=== PATIENT | male | born 1955 | race Caucasian/White ===

== ENCOUNTER → 2017-05-23 | Outpatient (REF) | payer MEDICARE, MEDICAID | LOC: M SMT 13:34 | PROVIDERS: ATTEND Nurse Practitioner Women's Health | DX: R97.20 Elevated prostate specific antigen [PSA] (principal); Z79.01 Long term (current) use of anticoagulants; Z79.4 Long term (current) use of insulin; Z79.52 Long term (current) use of systemic steroids; Z79.82 Long term (current) use of aspirin; Z79.899 Other long term (current) drug therapy; Z87.442 Personal history of urinary calculi ==

== ENCOUNTER → 2017-06-15 | Outpatient (CLI) | payer MEDICARE, MEDICAID | LOC: M SMT PRO 08:46 | DX: R97.20 Elevated prostate specific antigen [PSA] (principal); Z53.8 Procedure and treatment not carried out for other reasons ==

== ENCOUNTER 2018-05-26 10:33 | Emergency (ER) | payer MEDICARE, MEDICAID ==
[~2018-05-26] VITALS: Ht 177.8 cm; Wt 144.6 kg
[2018-05-26] MEDS ORDERED: VITA50005 PO (11:35)
[2018-05-26] MEDS ORDERED: METF10004 PO (11:35)
[2018-05-26] MEDS ORDERED: ATOR40TA75 PO (11:35)
[2018-05-26] MEDS ORDERED: FEBU40TA PO (11:35)
[2018-05-26] MEDS ORDERED: LOSA25TA33 PO (11:35)
[2018-05-26] MEDS ORDERED: FARX1TAB3 PO (11:35)
[2018-05-26] MEDS ORDERED: COUM6TAB PO (11:35)
[2018-05-26] MEDS ORDERED: SERT50TA PO (11:35)
[2018-05-26] MEDS ORDERED: PRED5PAK2 PO (11:38)
[2018-05-26] MEDS ORDERED: GLIP5TAB8 PO (11:38)
[2018-05-26] MEDS ORDERED: POTA1TAB14 PO (11:38)
[2018-05-26] MEDS ORDERED: CARV6.25 PO (11:38)
[2018-05-26] MEDS ORDERED: FURO40TA2 PO (11:38)
[2018-05-26] MEDS ORDERED: NEUR300C PO (11:38)
[2018-05-26] MEDS ORDERED: ASPI81TA85 PO (11:38)
[2018-05-26] MEDS ORDERED: TEMA15CA2 PO (11:38)
[2018-05-26] MEDS ORDERED: MORPHINE 4 MG/ML 1ML VIAL/SYRINGE (J2270) IV ONE (12:00)
[2018-05-26 12:35] LABS: HEMATOCRIT 45.8 % (42.0-52.0); HEMOGLOBIN 15.2 g/dl (13.5-17.5); MEAN CORPUSCULAR HEMOGLOBIN 28.2 pg (27.0-33.0); MEAN CORPUSCULAR HGB CONC 33.2 g/dl (32.0-36.5); PLATELET COUNT, AUTOMATED 149 10^3/uL (150-450); RED BLOOD COUNT 5.39 10^6/uL (4.30-6.10); WHITE BLOOD COUNT 9.1 10^3/uL (4.0-10.0)
[2018-05-26 13:00] LABS: BLOOD UREA NITROGEN 27 MG/DL (7-18); C REACTIVE PROTEIN QUANTITATIV 1.49 MG/DL (0.00-0.30); CALCIUM LEVEL 9.2 MG/DL (8.8-10.2); CARBON DIOXIDE LEVEL 26 MEQ/L (21-32); CHLORIDE LEVEL 106 MEQ/L (98-107); CREATININE FOR GFR 1.15 MG/DL (0.70-1.30); GLOMERULAR FILTRATION RATE > 60.0 (>49); GLUCOSE, FASTING 156 MG/DL (70-100); POTASSIUM SERUM 4.3 MEQ/L (3.5-5.1); SODIUM LEVEL 141 MEQ/L (136-145); URIC ACID 3.8 MG/DL (3.5-7.2)
[2018-05-26 13:16] LABS: ERYTHROCYTE SEDIMENTATION RATE 5 mm/hr (0-20)
[2018-05-26] MEDS ORDERED: KEFL500C17 PO (13:44)
[2018-05-26] MEDS ORDERED: NORCOTAB PO (13:44)
[2018-05-26 13:56] VITALS: BP 140/86
== END 2018-05-26 14:04 | disposition home or self-care (01) ==
LOC: M ED 10:33
DX: M25.531 Pain in right wrist (principal); E11.9 Type 2 diabetes mellitus without complications; I10 Essential (primary) hypertension; F33.9 Major depressive disorder, recurrent, unspecified; F41.9 Anxiety disorder, unspecified; Z95.0 Presence of cardiac pacemaker; Z79.01 Long term (current) use of anticoagulants
CPT/HCPCS: 80048; 84550; 85027; 85652; 86140; 87040; 96374; 99284; J2270

== ENCOUNTER 2018-09-01 17:27 | Emergency (ER) | payer MEDICARE, MEDICAID ==
[~2018-09-01] VITALS: Ht 180.3 cm; Wt 134.6 kg
[~2018-09-01 17:27] MED LIST: ASPI81TA85 PO; ATOR40TA75 PO; CARV6.25 PO; COUM6TAB PO; FARX1TAB3 PO; FEBU40TA PO; FURO40TA2 PO; GLIP5TAB8 PO; HYDR-3715 PO; KEFL500C17 PO; LOSA25TA14 PO; METF10004 PO; NEUR300C PO; POTA1TAB14 PO; PRED5PAK2 PO; SERT-141 PO; TEMA15CA2 PO; VITA50005 PO
[2018-09-01] MEDS ORDERED: ACETAMINOPHEN 325 MG TAB PO ONE (18:00)
[2018-09-01 18:15] LABS: BASO % 0.4 % (0.0-1.0); EOS # 0.1 10^3/uL (0.0-0.50); EOS % 0.5 % (0.0-3.0); HEMATOCRIT 39.9 % (42.0-52.0); HEMOGLOBIN 12.2 g/dl (13.5-17.5); LYMPH # 2.7 10^3/uL (1.5-4.5); LYMPH % 29.4 % (24.0-44.0); MEAN CORPUSCULAR HEMOGLOBIN 26.1 pg (27.0-33.0); MEAN CORPUSCULAR HGB CONC 30.6 g/dl (32.0-36.5); MEAN CORPUSCULAR VOLUME 85.4 fl (80.0-96.0); MONO # 0.7 10^3/uL (0.0-0.8); MONO % 7.4 % (0.0-5.0); NEUTROPHILS # 5.7 10^3/uL (1.8-7.7); NEUTROPHILS % 61.9 % (36.0-66.0); PLATELET COUNT, AUTOMATED 192 10^3/uL (150-450); RED BLOOD COUNT 4.67 10^6/uL (4.30-6.10); WHITE BLOOD COUNT 9.3 10^3/uL (4.0-10.0)
[2018-09-01 18:27] LABS: INR 1.82; PROTHROMBIN TIME 21.4 SECONDS (12.1-14.4)
[2018-09-01 18:28] LABS: PARTIAL THROMBOPLASTIN TIME 36.5 SECONDS (25.4-37.6)
--- NOTE | 2018-09-01 18:29 | REP ---
Clinical: Trauma. Technique: AP and lateral views of the left tibia / fibula. Findings: Osteopenia and advanced degenerative changes at the knee and ankle joint limit evaluation for subtle injury. No obvious acute fracture or dislocation is appreciated. Significant swelling at the ankle noted. Marked peripheral vascular disease identified. No subcutaneous emphysema. Impression: 1. Limited by osteopenia and advanced degenerative changes at the knee and ankle. No obvious acute fracture appreciated. 2. Moderate swelling at the ankle. 3. Advanced peripheral vascular disease. Electronically Signed by Arley Carrera MD 09/01/2018 06:21 P
--- NOTE | 2018-09-01 18:30 | REP ---
Clinical: Trauma. Technique: AP, lateral, bilateral oblique and sunrise views of of the left knee. Findings: Osteopenia and advanced tricompartmental osteoarthritic degenerative changes are appreciated including osteophytosis, subchondral sclerosis, joint space narrowing and chondrocalcinosis. No obvious acute fracture dislocation. No definite effusion. Peripheral vascular disease noted. Impression: Osteopenia and advanced tricompartmental degenerative changes are appreciated. No obvious acute fracture or dislocation identified. Electronically Signed by Arley Carrera MD 09/01/2018 06:22 P
[2018-09-01 19:00] VITALS: BP 115/74
== END 2018-09-01 19:11 | disposition home or self-care (01) ==
LOC: M ED 17:27
DX: S80.12XA Contusion of left lower leg, initial encounter (principal); W19.XXXA Unspecified fall, initial encounter; Y92.099 Unspecified place in other non-institutional residence as the place of occurrence of the external cause; Y92.89 Other specified places as the place of occurrence of the external cause; Y99.9 Unspecified external cause status; I10 Essential (primary) hypertension; M85.862 Other specified disorders of bone density and structure, left lower leg; M17.12 Unilateral primary osteoarthritis, left knee; I73.9 Peripheral vascular disease, unspecified; M25.472 Effusion, left ankle; Z79.82 Long term (current) use of aspirin; Z79.84 Long term (current) use of oral hypoglycemic drugs; Z79.01 Long term (current) use of anticoagulants; Z79.899 Other long term (current) drug therapy

== ENCOUNTER 2018-09-16 21:32 | Emergency (ER) | payer MEDICARE, MEDICAID ==
[~2018-09-16] VITALS: Ht 177.8 cm; Wt 134.1 kg
[2018-09-16 23:10] LABS: BASO % 0.3 % (0.0-1.0); EOS % 0.3 % (0.0-3.0); HEMATOCRIT 41.7 % (42.0-52.0); LYMPH # 2.2 10^3/uL (1.5-4.5); LYMPH % 17.7 % (24.0-44.0); MEAN CORPUSCULAR HEMOGLOBIN 26.5 pg (27.0-33.0); MEAN CORPUSCULAR HGB CONC 31.2 g/dl (32.0-36.5); MEAN CORPUSCULAR VOLUME 84.9 fl (80.0-96.0); MONO # 0.9 10^3/uL (0.0-0.8); NEUTROPHILS # 9.1 10^3/uL (1.8-7.7); NEUTROPHILS % 74.1 % (36.0-66.0); PLATELET COUNT, AUTOMATED 171 10^3/uL (150-450); RED BLOOD COUNT 4.91 10^6/uL (4.30-6.10); WHITE BLOOD COUNT 12.2 10^3/uL (4.0-10.0)
[2018-09-16 23:31] LABS: CALCIUM LEVEL 8.9 MG/DL (8.8-10.2); CREATININE FOR GFR 1.36 MG/DL (0.70-1.30); POTASSIUM SERUM 3.7 MEQ/L (3.5-5.1)
[2018-09-16] MEDS ORDERED: CLINDAMYCIN 600 MG in APPROPRIATE DILUENT 1 EA IV ONE (23:45)
[2018-09-16 23:58] LABS: INR 2.59; PROTHROMBIN TIME 28.3 SECONDS (12.1-14.4)
[2018-09-17] MEDS ORDERED: MORPHINE 4 MG/ML 1ML VIAL/SYRINGE (J2270) IV ONE
[2018-09-17] MEDS ORDERED: NS 1,000 ML IV ONE
[2018-09-17] MEDS ORDERED: CLEO300C2 PO (00:31)
[2018-09-17] MEDS ORDERED: OXYC1TAB23 PO (00:31)
[2018-09-17] MEDS ORDERED: PERCOCET 5MG/325MG TAB PO ONE (01:15)
[2018-09-17 01:57] VITALS: BP 143/93
[2018-09-17] MEDS ORDERED: GABAPENTIN 300 MG CAP PO ONE (02:00)
--- NOTE | 2018-09-17 08:09 | REP ---
Right hand four views: There is soft tissue edema over the MCP articulations dorsally on the lateral view. There is no fracture or dislocation. There are mild osteoarthritic changes of the DIP and PIP articulations. There is vascular calcified atheroma. Impression: Soft tissue edema dorsally. No fracture or dislocation. Electronically Signed by Chin Bonilla MD 09/17/2018 08:00 A
== END 2018-09-17 02:04 | disposition home or self-care (01) ==
LOC: M ED 21:32
DX: L03.113 Cellulitis of right upper limb (principal); E11.9 Type 2 diabetes mellitus without complications; F33.9 Major depressive disorder, recurrent, unspecified; F41.9 Anxiety disorder, unspecified; Z79.899 Other long term (current) drug therapy; Z79.84 Long term (current) use of oral hypoglycemic drugs; Z79.82 Long term (current) use of aspirin; Z79.01 Long term (current) use of anticoagulants
CPT/HCPCS: 36415; 73130; 80048; 83605; 85025; 85610; 87040; 96365; 96366; 96375; 99284; J2270

== ENCOUNTER 2018-09-22 10:10 | Inpatient (IN) | payer MEDICARE, MEDICAID ==
[~2018-09-22] VITALS: Ht 177.8 cm; Wt 130.5 kg
[~2018-09-22 10:10] MED LIST changes: +CLEO300C2 PO; +OXYC1TAB23 PO
[2018-09-22 12:23] LABS: BASO % 0.3 % (0.0-1.0); EOS % 0.3 % (0.0-3.0); HEMATOCRIT 35.3 % (42.0-52.0); HEMOGLOBIN 10.9 g/dl (13.5-17.5); LYMPH # 1.4 10^3/uL (1.5-4.5); LYMPH % 13.6 % (24.0-44.0); MEAN CORPUSCULAR HEMOGLOBIN 26.5 pg (27.0-33.0); MEAN CORPUSCULAR HGB CONC 30.9 g/dl (32.0-36.5); MEAN CORPUSCULAR VOLUME 85.9 fl (80.0-96.0); MONO # 0.8 10^3/uL (0.0-0.8); MONO % 7.3 % (0.0-5.0); NEUTROPHILS # 8.1 10^3/uL (1.8-7.7); NEUTROPHILS % 78.1 % (36.0-66.0); PLATELET COUNT, AUTOMATED 157 10^3/uL (150-450); RED BLOOD COUNT 4.11 10^6/uL (4.30-6.10); WHITE BLOOD COUNT 10.3 10^3/uL (4.0-10.0)
--- NOTE | 2018-09-22 12:26 | REP ---
Pain and swelling. No history of trauma. COMPARISON: None. The bones are somewhat demineralized. There is medial compartmental narrowing and medial marginal osteophytosis. There is patellofemoral joint space narrowing with marginal osteophytosis arising from the articular surface of the patella. There is no evidence of an acute fracture. IMPRESSION: Chronic changes as described above. Electronically Signed by Albert Starkey DO 09/22/2018 02:33 P
[2018-09-22] MEDS ORDERED: AMOX875T2 PO (12:32)
[2018-09-22 13:01] LABS: ALBUMIN 2.6 GM/DL (3.2-5.2); ALT/SGPT 44 U/L (12-78); BILIRUBIN,DIRECT 0.3 MG/DL (0.0-0.2); BILIRUBIN,TOTAL 0.8 MG/DL (0.2-1.0); BLOOD UREA NITROGEN 15 MG/DL (7-18); CALCIUM LEVEL 8.2 MG/DL (8.8-10.2); CARBON DIOXIDE LEVEL 28 MEQ/L (21-32); CHLORIDE LEVEL 107 MEQ/L (98-107); CREATININE FOR GFR 0.76 MG/DL (0.70-1.30); GLOMERULAR FILTRATION RATE > 60.0 (>49); GLUCOSE, FASTING 142 MG/DL (70-100); NT-PRO BNP 4245 PG/ML (<125); POTASSIUM SERUM 3.9 MEQ/L (3.5-5.1); SODIUM LEVEL 142 MEQ/L (136-145); TOTAL PROTEIN 5.9 GM/DL (6.4-8.2)
[2018-09-22 13:33] LABS: CPK CREATINE PHOSPHOKINASE 37 U/L (39-308); TROPONIN I 0.03 NG/ML (< 0.10)
[2018-09-22] MEDS ORDERED: ACYC800T PO (13:35)
[2018-09-22] MEDS ORDERED: DOXY1CAP60 PO (13:36)
[2018-09-22] MEDS ORDERED: NORC1TAB7 PO (14:40)
[2018-09-22] MEDS ORDERED: PRED5TA PO (14:40)
[2018-09-22] MEDS ORDERED: METF500T4 PO (14:40)
[2018-09-22] MEDS ORDERED: PRED10TA2 PO (14:41)
[2018-09-22] MEDS ORDERED: MORPHINE 4 MG/ML 1ML VIAL/SYRINGE (J2270) IV ONE (15:45)
[2018-09-22] MEDS ORDERED: ULTRACET TAB PO ONE (15:45)
[2018-09-22] MEDS ORDERED: GLUCAGON FOR INJ 1 MG VIAL (J1610) SC PRN (16:00)
[2018-09-22] MEDS ORDERED: DEXTROSE 50% 50 ML SYRINGE IV PRN (16:00)
[2018-09-22] MEDS ORDERED: GLUCOSE 4 GM CHEW TABLET PO PRN (16:00)
[2018-09-22] MEDS ORDERED: NALOXONE INJ 0.4 MG/1 ML VIAL (J2310) IV PRN (16:15)
[2018-09-22] MEDS ORDERED: AMPICILLIN SOD/SULBACTAM SOD 1.5 GM in D5W MINI-BAG PLUS 50 ML IV ONE (17:00)
[2018-09-22] MEDS: FUROSEMIDE 40 MG/4 ML VIAL (J1940) IV SCH ×2 (17:25→22:14)
[2018-09-22] MEDS: HumaLOG INSULIN (NovoLOG) PER UNIT SC SCH ×2 (17:30→21:00)
[2018-09-22] MEDS ORDERED: WARFARIN SOD 3 MG TAB PO SCH (18:00)
[2018-09-22 18:03] LABS: IONIZED CALCIUM 4.3 MG/DL (4.5-5.3)
[2018-09-22 18:24] LABS: BLOOD UREA NITROGEN 14 MG/DL (7-18); CALCIUM LEVEL 8.4 MG/DL (8.8-10.2); CARBON DIOXIDE LEVEL 30 MEQ/L (21-32); CHLORIDE LEVEL 107 MEQ/L (98-107); CREATININE FOR GFR 0.82 MG/DL (0.70-1.30); GLOMERULAR FILTRATION RATE > 60.0 (>49); GLUCOSE, FASTING 119 MG/DL (70-100); POTASSIUM SERUM 3.7 MEQ/L (3.5-5.1); SODIUM LEVEL 143 MEQ/L (136-145)
[2018-09-22] MEDS: NORCO, ANEXSIA 5/325MG TABLET (HYDROcodone/ACETAMINOPHEN) PO PRN (20:30)
[2018-09-22] MEDS ORDERED: CALCIUM GLUCONATE 1,000 MG in D5W MINI-BAG PLUS 100 ML IV ONE (20:45)
--- NOTE | 2018-09-22 21:02 | ECGEPIP ---
Stationary ECG Study [facility] - ED Test Date: 2018-09-22 Pat Name: RUSLAN VALLEJO Department: Room: - Gender: M Registered Representative: : [id number] Requested By: ZAFAR Blas PA-C Order Number: [id number] Reading MD: Aura Cali Measurements Intervals [place] Rate: 87 P: MI: 0 QRS: -66 QRSD: 185 T: -13 QT: 426 QTc: 515 Interpretive Statements VENTRICULAR PACED NO PRIOR FOR COMPARISON Electronically Signed On 09-22-2018 21:02:16 EDT by Aura Cali
--- NOTE | 2018-09-22 21:38 | HPE ---
DATE OF ADMISSION: 09/22/2018 CHIEF COMPLAINT: Lower extremity edema, bilateral knee pain. HISTORY OF PRESENTING ILLNESS: This is a 63-year-old male with past medical history significant for systolic and diastolic congestive heart failure, ejection fraction of 30%, diabetes, hypertension, gout, morbid obesity, body mass index (BMI) of 42.7, obstructive sleep apnea, untreated, diagnosed in 2008, refuses to wear a continuous positive airway pressure (C-PAP), stage II chronic kidney disease, follows with Dr. Watson in [facility], hyperlipidemia, benign prostatic hypertrophy (BPH) without obstruction, atrial fibrillation on chronic anticoagulation with warfarin, B12 deficiency, hypochromic microcytic anemia, coronary artery disease (CAD), coronary artery bypass graft (CABG) quadruple vessel, valve replacement, ischemic cardiomyopathy, lumbar spinal stenosis, recurrent nephrolithiasis, presents to the emergency room with five day history of increasing lower extremity edema and knee swelling. Patient was recently discharged on from [facility] in [place] for a right index finger proximal interphalageal (PIP) joint infection and underwent incision and drainage with the wound left open with daily cleansing and antibiotics with Augmentin. Since patient had gone home, he had noticed a 3 pound weight gain, lower extremity edema. Patient's family says the patient is noncompliant with both fluid restriction as well as salt restriction. Patient "eats what he wants," and most often drinks multiple Mountain Dew's during the day, as well as deli sandwiches and prepared chicken salad. According to the patient, he tries to make his own meals and grills up his own steak without any added salt. According to the family, however, patient is able to eat out in a restaurant and he usually purchases packaged foods at home. He denies any orthopnea. He admits to dyspnea on exertion, about 50 feet. He denies any chest pain, pressure or tightness, lightheadedness or dizziness. He was last seen by Dr. Gómez about six months ago. No recent stress test or angiogram. Patient denies any recent travel or prolonged immobilization. Vascular Dopplers of the lower extremities are negative for deep venous thrombosis (DVT). He has 3+ pitting edema with a history of noncompliance with C-PAP as well for obstructive sleep apnea and refuses to obtain a C-PAP machine. Patient presents to the emergency room with complaints of lower extremity edema, bilateral knee pain. X-ray was negative for acute fracture, dislocation. Patient denies any chest pain, pressure, tightness, lightheadedness, dizziness. He denies two or three pillow orthopnea. He complains of pain in his knees and was found to have a Mann cyst as well as pain on the right finger, for which he takes [place] every four hours as needed, gabapentin and Augmentin. Hospitalist was called to admit for acute congestive heart failure (CHF) exacerbation. PAST MEDICAL HISTORY: Significant for: 1. Coronary heart disease. 2. Coronary artery bypass graft (CABG) times four vessels. 3. Valve replacement. 4. Type 2 diabetes. 5. Hypertension. 6. Gout. 7. Obstructive sleep apnea; refuses continuous positive airway pressure (C-PAP) . 8. Chronic kidney disease stage III. 9. Insomnia. 10. Hyperlipidemia. 11. Benign prostatic hypertrophy (BPH) without obstruction, with elevated PSA. 12. Hypergonadism. 13. Osteoarthritis. 14. Atrial fibrillation on chronic Coumadin. 15. Vitamin B12 deficiency. 16. Microcytic anemia. 17. Coronary artery disease (CAD) with diffuse ischemic heart disease. 18. Ischemic cardiomyopathy. 19. Lumbar spinal stenosis. 20. Morbid obesity; body mass index (BMI) 42.7. 21. Nephrolithiasis. ALLERGIES: No known drug allergies. PAST SURGICAL HISTORY: 1. Coronary artery bypass graft (CABG) times four vessels. 2. Pacemaker defibrillator, [facility], 2014. 3. Bilateral cataracts, 2014. 4. Valve replacement, November 2015. FAMILY HISTORY: Father with CHF. Mother with cancer, age 65. Sister at age 12. Older brother with kidney stones. Five brothers, one sister, one son and one daughter. SOCIAL HISTORY: Patient lives alone. Never smoked cigarettes. He drinks multiple Mountain Dew's during the day. He is currently single. REVIEW OF SYSTEMS: A 12-point system negative aside from positive findings in history of presenting illness (HPI). PHYSICAL EXAMINATION: VITAL SIGNS: Pulse 96, respiratory 20, blood pressure 135/66, 100% on room air. GENERAL: Patient is awake, alert, oriented times three, answering questions appropriately. No conversational dyspnea. No use of accessory respiratory muscles. No nasal flare. No tracheal deviation. Patient exhibits no use of accessory respiratory muscles. No pallor, icterus or jaundice. Mild jugular venous distention. Neck is supple, full range of motion. No cervical lymphadenopathy, thyromegaly. Dry mucous membranes. Thick neck. LUNGS: Diminished with fine crackles bilaterally. HEART: S1, S2. Regularly irregular. No murmurs, rubs or gallops. Midsternal sternotomy scar well-healed. ABDOMEN: Obese, soft, nontender, nondistended. Positive bowel sounds in all four quadrants. No rebound, guarding or hepatosplenomegaly. EXTREMITIES: 3+ pitting edema to the sacrum. Patient has tender, warm left knee. Right second digit has an open wound at the PIP joint. Has been unchanged according to the patient since hospital discharge at [facility] last . There is some erythema and tenderness, limitation of flexion/extension at the PIP joint. He is right-handed by nature. No change in sensation. No cyanosis. EKG: Atrial fibrillation ventricular rate of 87. Intraventricular conduction delay. Inferior myocardial infarction ([place]), age undetermined. LABORATORY DATA: White count 10.3, hemoglobin 10.9, hematocrit 35.3, platelet count 157. 78% neutrophils, 13% lymphocytes, 7% monocytes. Sodium 142, potassium 3.9, chloride 107, bicarbonate 28, BUN 15, creatinine 0.76, glucose 142, calcium 8.2. Total bilirubin 0.8, direct bilirubin 0.3, AST 22, ALT 44, alkaline phosphatase 70, total CK 37, MB fraction 1. Troponin 0.03. CRP 14. BNP 4245. Total protein 5.9, albumin 2.6, albumin/globulin ratio 0.79. Pro-calcitonin is pending. Knee x-ray 09/22/2018: Chronic changes. Bones are demineralized. Medial compartmental narrowing and medial marginal osteophytosis. There is patellofemoral joint space narrowing with marginal osteophytosis arising from the articular surface of the patella. There is no evidence of an acute fracture. Chronic changes. Vascular ultrasound 09/22/2018: No formal report. ASSESSMENT AND PLAN: This is a 63-year-old male who presents with lower extremity edema and bilateral knee pain. Patient will be admitted as an inpatient for two midnights for the following issues: 1. Lower extremity edema. Most likely secondary to right-sided congestive heart failure with elevated BNP in the setting of dietary indiscretion, failure to follow a fluid restriction and salt restriction at home. Patient will be kept on a 2 liter fluid restriction, strict intake and output (I and O), daily weights, Lasix intravenously scheduled, with potassium, magnesium and calcium monitoring to supplement if needed, until patient's lower extremity edema and right-sided heart failure has improved. Patient will be kept on a consistent carbohydrate diet. He will be resumed on his home medications of losartan due to acute congestive heart failure (CHF). Patient's metformin and glipizide will be held until he is euvolemic. Fall precautions due to morbid obesity and lower extremity edema with increased risk of falling. Physical therapy will be consulted. 2. Diastolic/systolic congestive heart failure (CHF) exacerbation. Ejection fraction of 30%, according to the patient's family. Status post automatic implantable cardioverter defibrillator (AICD) and pacer. Patient did not recall pacemaker firing. He will be kept on third telemetry for 48 hours to monitor for arrhythmias. Cycle cardiac markers to rule out acute ischemia as cause for patient's CHF exacerbation. Patient does admit to dietary and fluid indiscretion, which was confirmed by the patient's family. Patient will be kept in the telemetry unit. We will cycle the cardiac markers every 6 hours. Continue him on his home medications aside from metformin and glipizide in light of acute CHF. Will try to avoid nonsteroidal anti-inflammatory drugs (NSAIDs) and oral hypoglycemics with the patient is in acute decompensated CHF. Repeat echocardiogram will be obtained, as well as updating the records from Dr. Gómez's office. He will be diuresed with scheduled Lasix and optimized until he is euvolemic. 3. Knee pain. Most likely secondary to increased lower extremity edema. Rule out fracture with x-ray, which was negative. Ultrasound showed Mann cyst. Patient is on chronic anticoagulation and physical therapy (PT) will be consulted. 4. Right second finger joint infection. Patient had been on a course of Augmentin as outpatient, was due to see his orthopedic surgeon for followup as outpatient. We will continue with wound care with daily soaps, according to the patient's daughter, as well as intravenous Unasyn while he is admitted to the hospital. 5. History of Coronary artery disease (CAD), coronary artery bypass graft (CABG) time four vessels. Rule out acute ischemia as cause for patient's CHF. Patient may be continued on aspirin, losartan. He is currently not on any beta-blockers and will continue patient's atorvastatin. Will obtain records from Dr. Gómez's office. 6. Diabetes. Continue on consistent carbohydrate diet, insulin sliding scale with coverage, before food and nightly. 7. Peripheral neuropathy. Continue on gabapentin. 8. Depression. Continue on sertraline. 9. Atrial fibrillation. Currently on no rate control medications, but will continue on warfarin. Check INR daily and hold if INR is greater than 3. 10. Vitamin D deficiency. Resume outpatient vitamin D once patient is discharged. 11. Morbid obesity with untreated obstructive sleep apnea. At a high risk of respiratory acidosis, therefore, we will try to minimize patient's narcotic use. 12. Body mass index (BMI) of 42.7 with morbid obesity. Outpatient followup with primary care physician for weight loss programs; however, patient has multiple comorbidities, which may make gastric bypass referral difficult. 13. Questionable Mann cyst. Supportive care. 14. Elevated PSA. Prior history of benign prostatic hypertrophy (BPH). Outpatient followup. Will check postvoid residual should the patient have decreased urine output and increasing suprapubic bladder discomfort. If output postvoid residual is greater than 300, intermittent catheterization versus Segnudo catheter for strict intake and output (I and O). 15. History of gout. Continue on [place]. 16. Chronic kidney disease stage . Avoid nephrotoxins, NSAIDs and monitor patient's creatinine on a daily basis due to ongoing diuresis. 17. Insomnia. Continue on trazodone. 18. Chronic anemia. No acute indication for red blood cell transfusion. 19. History of lumbar spinal stenosis. May resume patient's chronic pain medications and gabapentin. 20. Ischemic cardiomyopathy. Continue home medication. Refer to cardiology for changes in medications. 21. History of nephrolithiasis. Currently does not complain of hematuria, dysuria, but does complain of frequency, difficulty maintaining and starting a urine, which is related to his BPH. Patient was due to go to [place] for stone extraction in the near future, on 10/03/2018. 22. Deep venous thrombosis (DVT) prophylaxis. On chronic warfarin. 23. Diet will be consistent carbohydrate diet. DISPOSITION: Patient's family is requesting for placement. Patient is open to assisted living. Await physical therapy (PT) clearance after medical issues have resolved.
[2018-09-22 21:54] LABS: ERYTHROCYTE SEDIMENTATION RATE 60 mm/hr (0-20)
[2018-09-22] MEDS: predniSONE 10 MG TAB PO SCH (22:15)
[2018-09-22] MEDS: GABAPENTIN 300 MG CAP PO SCH (22:15)
[2018-09-22] MEDS: TEMAZEPAM 15 MG CAP PO SCH (22:16)
[2018-09-23] MEDS: FUROSEMIDE 40 MG/4 ML VIAL (J1940) IV SCH ×6 (00:26→23:30)
[2018-09-23] MEDS: AMPICILLIN SOD/SULBACTAM SOD 1.5 GM in D5W MINI-BAG PLUS 50 ML IV SCH ×5 (00:26→22:51)
[2018-09-23] MEDS: NORCO, ANEXSIA 5/325MG TABLET (HYDROcodone/ACETAMINOPHEN) PO PRN ×2 (02:13→08:37)
[2018-09-23 07:29] LABS: IONIZED CALCIUM 4.5 MG/DL (4.5-5.3)
--- NOTE | 2018-09-23 07:41 | REP ---
REASON: Lower extremity edema. COMPARISON: None. The technique utilized in obtaining the radiograph has magnified the cardiac silhouette and accentuated the interstitial markings. AP and lateral views were obtained. There is global cardiomegaly accentuated by technique. There is evidence of scattered interstitial fibrosis. No isolated patchy opacities are evident. The pleural angles are relatively sharp but somewhat obscured by overlying soft tissue and technique. The left CP angle is not completely included on this limited radiograph. There is a dual-chamber bipolar pacemaker and there has been previous median sternotomy. There is a prosthetic aortic valve. IMPRESSION: Exam limitations and chronic changes with other findings as described above. Electronically Signed by Albert Starkey DO 09/23/2018 02:00 P
[2018-09-23 07:42] LABS: BASO % 0.2 % (0.0-1.0); EOS % 0.3 % (0.0-3.0); HEMATOCRIT 37.4 % (42.0-52.0); HEMOGLOBIN 11.3 g/dl (13.5-17.5); LYMPH # 1.9 10^3/uL (1.5-4.5); LYMPH % 16.7 % (24.0-44.0); MEAN CORPUSCULAR HEMOGLOBIN 25.6 pg (27.0-33.0); MEAN CORPUSCULAR HGB CONC 30.2 g/dl (32.0-36.5); MEAN CORPUSCULAR VOLUME 84.8 fl (80.0-96.0); MONO # 0.8 10^3/uL (0.0-0.8); MONO % 6.8 % (0.0-5.0); NEUTROPHILS # 8.7 10^3/uL (1.8-7.7); NEUTROPHILS % 75.4 % (36.0-66.0); PLATELET COUNT, AUTOMATED 179 10^3/uL (150-450); RED BLOOD COUNT 4.41 10^6/uL (4.30-6.10); WHITE BLOOD COUNT 11.5 10^3/uL (4.0-10.0)
[2018-09-23 07:52] LABS: BLOOD UREA NITROGEN 15 MG/DL (7-18); CALCIUM LEVEL 8.2 MG/DL (8.8-10.2); CARBON DIOXIDE LEVEL 29 MEQ/L (21-32); CHLORIDE LEVEL 104 MEQ/L (98-107); CREATININE FOR GFR 0.77 MG/DL (0.70-1.30); GLOMERULAR FILTRATION RATE > 60.0 (>49); GLUCOSE, FASTING 169 MG/DL (70-100); MAGNESIUM LEVEL 1.8 MG/DL (1.8-2.4); NT-PRO BNP 3897 PG/ML (<125); POTASSIUM SERUM 3.7 MEQ/L (3.5-5.1); SODIUM LEVEL 141 MEQ/L (136-145)
[2018-09-23 07:54] LABS: PROTHROMBIN TIME 38.7 SECONDS (12.1-14.4)
--- NOTE | 2018-09-23 08:26 | REP ---
REASON: Bilateral pain and swelling. PRIORS: None. TECHNIQUE: Multiple ultrasonographic images of the deep venous structures of the right and left thigh were obtained from the common femoral vein to the popliteal vein along with Doppler interrogation and color flow Doppler images. FINDINGS: There is no abnormal echogenic material seen within any of the visualized deep venous structures that would suggest acute thrombosis. Coaptation is unremarkable throughout. Doppler interrogation shows an expected response to respiratory variability and augmentation. The color flow images show what appears to be a normal vascular pattern throughout. Note is made of a 4.6 cm sized hypoechoic area in the posterior popliteal fossa of the right knee consistent with a complex Mann cyst. IMPRESSION: There is no ultrasonographic evidence of deep venous thrombosis involving any of the visualized deep venous structures of the right and left thigh, as described above. Electronically Signed by Albert Starkey DO 09/23/2018 02:02 P
[2018-09-23] MEDS: HumaLOG INSULIN (NovoLOG) PER UNIT SC SCH ×4 (08:31→20:07)
[2018-09-23] MEDS: ATORVASTATIN 20 MG TAB PO SCH (08:32)
[2018-09-23] MEDS: predniSONE 10 MG TAB PO SCH (08:32)
[2018-09-23] MEDS: GABAPENTIN 300 MG CAP PO SCH ×2 (08:32→19:50)
[2018-09-23] MEDS: LOSARTAN 25 MG TAB PO SCH (08:32)
[2018-09-23] MEDS: FEBUXOSTAT 40 MG TABLET (ULORIC) PO SCH (08:32)
[2018-09-23] MEDS: SERTRALINE HCL 50 MG TAB PO SCH (08:33)
[2018-09-23 08:46] LABS: INR 3.84
[2018-09-23] MEDS ORDERED: POTASSIUM CHLORIDE 10 MEQ SR TABLET PO SCH (09:00)
[2018-09-23] MEDS ORDERED: ASPIRIN 81 MG ENTERIC TAB PO SCH (09:00)
[2018-09-23] MEDS ORDERED: POTASSIUM CHLORIDE 10 MEQ SR TABLET PO ONE ×3 (11:00)
[2018-09-23] MEDS ORDERED: MAG SULF 1GM/100ML (MAG RUN) 1 GM in APPROPRIATE DILUENT 1 EA IV ONE (11:00)
[2018-09-23] MEDS ORDERED: traMADol 50 MG TAB PO ONE (13:30)
[2018-09-23] MEDS ORDERED: MORPHINE 4 MG/ML 1ML VIAL/SYRINGE (J2270) IV ONE (13:30)
[2018-09-23] MEDS ORDERED: predniSONE 20 MG TAB PO ONE (13:30)
--- NOTE | 2018-09-23 14:53 | IPNPDOC ---
Date Seen The patient was seen on 09/23/18. Progress Note SUBJECTIVE: overnight, pt developed gross hematuria, refused ceron. ua sent. h/o kidney stones but denies flank pain or dysuria. pt's warfarin and asa held. consent obtained for FFP and rbc transfusion if needed. sob is improved s/p 1 liter diuresis. stillw 3+ LE edema. 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 s/p iv morphine for pain. CT abd/pelvis to evaluate known h/o kidney stone pending. OBJECTIVE: PHYSICAL EXAMINATION: VITAL SIGNS: PLS SEE BELOW GENERAL: Patient is awake, alert, oriented times three, answering questions appropriately. No conversational dyspnea. No use of accessory respiratory muscles. No nasal flare. No tracheal deviation. Patient exhibits no use of accessory respiratory muscles. No pallor, icterus or jaundice. Mild jugular venous distention. Neck is sup ple, full range of motion. No cervical lymphadenopathy, thyromegaly. Dry mucous membranes. Thick neck. LUNGS: Diminished with fine crackles bilaterally. HEART: S1, S2. Regularly irregular. No murmurs, rubs or gallops. Midsternal sternotomy scar well-healed. ABDOMEN: Obese, soft, nontender, nondistended. Positive bowel sounds in all four quadrants. No rebound, guarding or hepatosplenomegaly. EXTREMITIES: 3+ pitting edema to the sacrum. Patient has tender, warm left knee. Right second digit has an open wound at the PIP joint. Has been unchanged according to the patient since hospital discharge at [facility] last . There is some erythema and tenderness, limitation of flexion/extension at the PIP joint. He is right-handed by nature. No change in sensation. No cyanosis. EKG: Atrial fibrillation ventricular rate of 87. Intraventricular conduction delay. Inferior myocardial infarction (VT), age undetermined. LABORATORY DATA, IMAGING STUDIES, MICROBIOLOGY: PLS SEE BELOW Knee x-ray 09/22/2018: Chronic changes. Bones are demineralized. Medial compartmental narrowing and medial marginal osteophytosis. There is patellofemoral joint space narrowing with marginal osteophytosis arising from the articular surface of the patella. There is no evidence of an acute fracture. Chronic changes. Vascular ultrasound 09/22/2018: No formal report. ASSESSMENT AND PLAN: This is a 63-year-old male with past medical history significant for systolic and diastolic congestive heart failure, ejection fraction of 30%, diabetes, hypertension, gout, morbid obesity, body mass index (BMI) of 42.7, obstructive sleep apnea, untreated, diagnosed in 2008, refuses to wear a continuous positive airway pressure (C-PAP), stage II chronic kidney disease, follows with Dr. Watson in [facility], hyperlipidemia, benign prostatic hypertrophy (BPH) without obstruction, atrial fibrillation on chronic anticoagulation with warfarin, B12 deficiency, hypochromic microcytic anemia, coronary artery disease (CAD), coronary artery bypass graft (CABG) quadruple vessel, valve replacement, ischemic cardiomyopathy, lumbar spinal stenosis, recurrent nephrolithiasis, presents to the emergency room with five day history of increasing lower extremity edema and knee swelling. Patient was recently discharged on from [facility] in [place] for a right index finger proximal interphalageal (PIP) joint infection and underwent incision and drainage with the wound left open with daily cleansing and antibiotics with Augmentin. Since patient had gone home, he had noticed a 3 pound weight gain, lower extremity edema. Patient's family says the patient is noncompliant with both fluid restriction as well as salt restriction. Patient "eats what he wants," and most often drinks multiple Mountain Dew's during the day, as well as deli sandwiches and prepared chicken salad. According to the patient, he tries to make his own meals and grills up his own steak without any added salt. According to the family, however, patient is able to eat out in a restaurant and he usually purchases packaged foods at home. He denies any orthopnea. He admits to dyspnea on exertion, about 50 feet. He denies any chest pain, pressure or tightness, lightheadedness or dizziness. He was last seen by Dr. Gómez about six months ago. No recent stress test or angiogram. Patient denies any recent travel or prolonged immobilization. Vascular Dopplers of the lower extremities are negative for deep venous thrombosis (DVT). He has 3+ pitting edema with a history of noncompliance with C-PAP as well for obstructive sleep apnea and refuses to obtain a C-PAP machine. Patient presents to the emergency room with complaints of lower extremity edema, bilateral knee pain. X-ray was negative for acute fracture, dislocation. Patient denies any chest pain, pressure, tightness, lightheadedness, dizziness. He denies two or three pillow orthopnea. 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 Hospitalist was called to admit for acute congestive heart failure (CHF) exacerbation. Lower extremity edema. NO dvt ON U/S. Most likely secondary to right-sided congestive heart failure with elevated BNP in the setting of dietary indiscretion, failure to follow a fluid restriction and salt restriction at home. Patient will be kept on a 2 liter fluid restriction, strict intake and output (I and O), daily weights, Lasix intravenously scheduled, with potassium, magnesium and calcium monitoring to supplement if needed, until patient's lower extremity edema and right-sided heart failure has improved. Patient will be kept on a consistent carbohydrate diet. He will be resumed on his home medications of losartan due to acute congestive heart failure (CHF). Patient's metformin and glipizide will be held until he is euvolemic. Fall precautions due to morbid obesity and lower extremity edema with increased risk of falling. Physical therapy will be consulted. Diastolic/systolic congestive heart failure (CHF) exacerbation. Ejection fraction of 30%, according to the patient's family. Status post automatic implantable cardioverter defibrillator (AICD) and pacer. Patient did not recall pacemaker firing. He will be kept on third telemetry for 48 hours to monitor for arrhythmias. Cycle cardiac markers to rule out acute ischemia as cause for patient's CHF exacerbation. Patient does admit to dietary and fluid indiscretion, which was confirmed by the patient's family. Patient will be kept in the telemetry unit. We will cycle the cardiac markers every 6 hours. Continue him on his home medications aside from metformin and glipizide in light of acute CHF. Will try to avoid nonsteroidal anti-inflammatory drugs (NSAIDs) and oral hypoglycemics with the patient is in acute decompensated CHF. Repeat echocardiogram will be obtained, as well as updating the records from Dr. Gómez's office. He will be diuresed with scheduled Lasix and optimized until he is euvolemic. Knee pain. Most likely secondary to increased lower extremity edema. Rule out fracture with x-ray, which was negative. Ultrasound showed Mann cyst. Patient is on chronic anticoagulation and physical therapy (PT) will be consulted. Right second finger joint infection. Patient had been on a course of Augmentin as outpatient, was due to see his orthopedic surgeon for followup as outpatient. We will continue with wound care with daily soaps, according to the patient's daughter, as well as intravenous Unasyn while he is admitted to the hospital. History of Coronary artery disease (CAD), coronary artery bypass graft (CABG) time four vessels. Rule out acute ischemia as cause for patient's CHF. Patient may be continued on aspirin, losartan. He is currently not on any beta-blockers and will continue patient's atorvastatin. Will obtain records from Dr. Gómez's office. Diabetes. Continue on consistent carbohydrate diet, insulin sliding scale with coverage, before food and nightly. Peripheral neuropathy. Continue on gabapentin. Depression. Continue on sertraline. gross hematuria 09/23/18 Currently does not complain of hematuria,ng and starting a urine, which is related to his BPH. Patient was due to go to [place] for stone extraction in the near future, on 10/03/2018. rpt ct abd pelvis ordered 09/23/18. asa and warfarin held due to acute blood loss. consult urology if persistent hematuria, if ct abd shows obstructive stone with hydronephrosis. Atrial fibrillation. Currently on no rate control medications, but will held warfarin due to acute hemauria.Check INR daily and hold if INR is greater than 3. Vitamin D deficiency. Resume outpatient vitamin D once patient is discharged. Morbid obesity with untreated obstructive sleep apnea. At a high risk of respiratory acidosis, therefore, we will try to minimize patient's narcotic use. Body mass index (BMI) of 42.7 with morbid obesity. Outpatient followup with primary care physician for weight loss programs; however, patient has multiple comorbidities, which may make gastric bypass referral difficult. Elevated PSA. Prior history of benign prostatic hypertrophy (BPH). Outpatient followup. Will check postvoid residual should the patient have decreased urine output and increasing suprapubic bladder discomfort. If output postvoid residual is greater than 300, intermittent catheterization versus Ceron catheter for strict intake and output (I and O). Acute exacerbation of tophaceous gout. left elbow with significant pain. on prednisone Continue on Uloric. Chronic kidney disease stage 2 Avoid nephrotoxins, NSAIDs and monitor patient's creatinine on a daily basis due to ongoing diuresis. Insomnia. Continue on trazodone. Chronic anemia. No acute indication for red blood cell transfusion. History of lumbar spinal stenosis. May resume patient's chronic pain medications and gabapentin. Ischemic cardiomyopathy. Continue home medication. Refer to cardiology for changes in medications. History of nephrolithiasis with gross hematuria 09/23/18 Currently does not complain of hematuria,ng and starting a urine, which is related to his BPH. Patient was due to go to [place] for stone extraction in the near future, on 10/03/2018. rpt ct abd pelvis ordered 09/23/18. asa and warfarin held due to acute blood loss. consult urology if persistent hematuria, if ct abd shows obstructive stone with hydronephrosis. Acute blood loss due to gross hematuria from kidney stone. check ua urine cx. h&H monitoring asa and warfarin held ffp and rbc transfusion if needed. Deep venous thrombosis (DVT) prophylaxis. On chronic warfarin. Diet will be consistent carbohydrate diet. DISPOSITION: pending clinical improvement. 3-4 days. VS, I&O, 24H, Fishbone Vital Signs/I&O Vital Signs Date Time Temp Pulse Resp B/P (MAP) Pulse Ox O2 Delivery O2 Flow Rate FiO2 09/23/18 09:45 99 09/23/18 09:07 18 09/23/18 08:32 136/83 09/23/18 08:30 98.1 94 Room Air 09/23/18 01:59 2.0 I&O- Last 24 Hours up to 6 AM 09/23/18 05:59 Intake Total 400 ml Output Total 750 ml Balance -350 ml Laboratory Data 24H LABS Laboratory Tests 2 09/22/18 17:25: Bedside Glucose (Misc Panel) 119H 09/22/18 17:51: Anion Gap 6L, Glomerular Filtration Rate > 60.0, Blood Urea Nitrogen 14, Creatinine 0.82, Sodium Level 143, Potassium Level 3.7, Chloride Level 107, Carbon Dioxide Level 30, Calcium Level 8.4L, Whole Blood Ionized Calcium 4.3L 09/22/18 22:32: Bedside Glucose (Misc Panel) 140H 09/23/18 06:55: Anion Gap 8, Glomerular Filtration Rate > 60.0, Blood Urea Nitrogen 15, Creatinine 0.77, Sodium Level 141, Potassium Level 3.7, Chloride Level 104, Carbon Dioxide Level 29, Calcium Level 8.2L, Whole Blood Ionized Calcium 4.5, Immature Granulocyte % (Auto) 0.6, White Blood Count 11.5H, Red Blood Count 4.41, Hemoglobin 11.3L, Hematocrit 37.4L, Mean Corpuscular Volume 84.8, Mean Corpuscular Hemoglobin 25.6L, Mean Corpuscular Hemoglobin Concent 30.2L, Red Cell Distribution Width 17.4H, Platelet Count 179, Neutrophils (%) (Auto) 75.4H, Lymphocytes (%) (Auto) 16.7L, Monocytes (%) (Auto) 6.8H, Eosinophils (%) (Auto) 0.3, Basophils (%) (Auto) 0.2, Neutrophils # (Auto) 8.7H, Lymphocytes # (Auto) 1.9, Monocytes # (Auto) 0.8, Eosinophils # (Auto) 0.0, Basophils # (Auto) 0.0, Nucleated Red Blood Cells % (auto) 0.0, Prothrombin Time 38.7H, Prothromb Time International Ratio 3.84, Magnesium Level 1.8, SW-Xno-K-Type Natriuretic Peptide 3897H 09/23/18 07:45: Bedside Glucose (Misc Panel) 190H CBC/BMP Laboratory Tests 09/22/18 17:51 Calcium Level 8.4 L 09/23/18 06:55 Calcium Level 8.2 L, Red Blood Count 4.41, Mean Corpuscular Volume 84.8, Mean Corpuscular Hemoglobin 25.6 L, Mean Corpuscular Hemoglobin Concent 30.2 L, Red Cell Distribution Width 17.4 H, Neutrophils (%) (Auto) 75.4 H, Lymphocytes (%) (Auto) 16.7 L, Monocytes (%) (Auto) 6.8 H, Eosinophils (%) (Auto) 0.3, Basophils (%) (Auto) 0.2, Neutrophils # (Auto) 8.7 H, Lymphocytes # (Auto) 1.9, Monocytes # (Auto) 0.8, Eosinophils # (Auto) 0.0, Basophils # (Auto) 0.0 ELMO TURNER MD Sep 23, 2018 12:45
[2018-09-23] MEDS ORDERED: PHYTONADIONE 2.5 MG **1/2 TAB PO ONE (15:00)
[2018-09-23] MEDS ORDERED: PHYTONADIONE 5 MG TAB PO ONE (15:30)
[2018-09-23 18:11] LABS: HEMATOCRIT 38.3 % (42.0-52.0); HEMOGLOBIN 11.6 g/dl (13.5-17.5)
--- NOTE | 2018-09-23 18:35 | REP ---
CT abdomen pelvis without IV or oral contrast: History: Gross hematuria. History of nephrolithiasis. No comparison CT study. Comparison abdomen radiographs are from June 23, 2015. CT findings: Preliminary digital property maintenance technician radiograph demonstrates gas in nondilated colon loops. The lung bases are essentially clear. Pacemaker is seen in the right heart. Mild cardiac enlargement is observed. No focal hepatic lesion is seen. The spleen is unremarkable. Extensive vascular calcification is noted. No pancreatic abnormality is noted. There is some higher attenuation material layering in the dependent portion the gallbladder which may be sludge or small stones. There are multiple intrarenal calculi. The largest of these occupies the upper pole collecting system on the right and measures 2.7 cm in greatest diameter. This is felt to be a staghorn calculus. There are two other tiny 2 mm calculi in the right kidney lower pole collecting system. In the left kidney, there is another staghorn calculus measuring 1.6 cm in greatest diameter. There are multiple other smaller intrarenal calculi in the left kidney and mid and upper pole level. No hydronephrosis is seen on either side. No ureteral calculus is observed. No bladder calculus is seen. There is some air in the urinary bladder suggesting recent instrumentation. There is left colonic diverticulosis without CT evidence of diverticulitis. No abdominal wall defect is seen. There is no evidence of free intraperitoneal air. No bony destructive lesion is seen. Impression: Bilateral intrarenal calculi. Bilateral staghorn calculi. No hydronephrosis. Left colonic diverticulosis without CT evidence of diverticulitis. Pacemaker in the heart with mild cardiomegaly. Electronically Signed by Du Fraire MD 09/24/2018 08:58 A
[2018-09-23 19:50] VITALS: BP 118/90
[2018-09-23] MEDS: TEMAZEPAM 15 MG CAP PO SCH (20:05)
[2018-09-24] VITALS (19 sets, daily range): BP systolic 128–152; BP diastolic 68–94; O2SAT 92–100
[2018-09-24 00:54] LABS: HEMATOCRIT 36.5 % (42.0-52.0); HEMOGLOBIN 11.2 g/dl (13.5-17.5)
[2018-09-24] MEDS: FUROSEMIDE 40 MG/4 ML VIAL (J1940) IV SCH ×2 (05:44→13:13)
[2018-09-24] MEDS: NORCO, ANEXSIA 5/325MG TABLET (HYDROcodone/ACETAMINOPHEN) PO PRN ×2 (05:44→10:20)
[2018-09-24] MEDS: AMPICILLIN SOD/SULBACTAM SOD 1.5 GM in D5W MINI-BAG PLUS 50 ML IV SCH ×4 (05:44→23:00)
[2018-09-24 06:09] LABS: BASO % 0.1 % (0.0-1.0); EOS % 0.1 % (0.0-3.0); HEMATOCRIT 38.1 % (42.0-52.0); HEMOGLOBIN 11.6 g/dl (13.5-17.5); LYMPH # 1.7 10^3/uL (1.5-4.5); LYMPH % 15.5 % (24.0-44.0); MEAN CORPUSCULAR HEMOGLOBIN 25.8 pg (27.0-33.0); MEAN CORPUSCULAR HGB CONC 30.4 g/dl (32.0-36.5); MEAN CORPUSCULAR VOLUME 84.7 fl (80.0-96.0); MONO # 0.6 10^3/uL (0.0-0.8); MONO % 5.6 % (0.0-5.0); NEUTROPHILS # 8.6 10^3/uL (1.8-7.7); NEUTROPHILS % 77.9 % (36.0-66.0); PLATELET COUNT, AUTOMATED 204 10^3/uL (150-450); WHITE BLOOD COUNT 11.1 10^3/uL (4.0-10.0)
[2018-09-24 06:27] LABS: INR 2.76; PROTHROMBIN TIME 29.8 SECONDS (12.1-14.4)
[2018-09-24 06:33] LABS: BLOOD UREA NITROGEN 21 MG/DL (7-18); CALCIUM LEVEL 8.6 MG/DL (8.8-10.2); CARBON DIOXIDE LEVEL 29 MEQ/L (21-32); CHLORIDE LEVEL 103 MEQ/L (98-107); CREATININE FOR GFR 0.87 MG/DL (0.70-1.30); GLOMERULAR FILTRATION RATE > 60.0 (>49); GLUCOSE, FASTING 221 MG/DL (70-100); MAGNESIUM LEVEL 2.2 MG/DL (1.8-2.4); POTASSIUM SERUM 3.5 MEQ/L (3.5-5.1); SODIUM LEVEL 138 MEQ/L (136-145)
[2018-09-24] MEDS: HumaLOG INSULIN (NovoLOG) PER UNIT SC SCH ×4 (08:32→20:01)
[2018-09-24] MEDS: ATORVASTATIN 20 MG TAB PO SCH (08:32)
[2018-09-24] MEDS: POTASSIUM CHLORIDE 10 MEQ SR TABLET PO SCH (08:33)
[2018-09-24] MEDS: FEBUXOSTAT 40 MG TABLET (ULORIC) PO SCH (08:33)
[2018-09-24] MEDS: SERTRALINE HCL 50 MG TAB PO SCH (08:34)
[2018-09-24] MEDS: LOSARTAN 25 MG TAB PO SCH (08:34)
[2018-09-24] MEDS: GABAPENTIN 300 MG CAP PO SCH ×2 (08:34→19:57)
[2018-09-24] MEDS ORDERED: predniSONE 10 MG TAB PO SCH (09:00)
[2018-09-24 12:04] LABS: HEMATOCRIT 36.4 % (42.0-52.0)
[2018-09-24] MEDS: oxyCODONE 5MG TAB PO PRN ×2 (15:01→18:55)
[2018-09-24] MEDS: FUROSEMIDE 100 MG/10 ML VIAL (J1940) IV SCH ×2 (17:38→23:44)
[2018-09-24 18:00] LABS: HEMATOCRIT 37.8 % (42.0-52.0); HEMOGLOBIN 11.4 g/dl (13.5-17.5)
[2018-09-24] MEDS: INDOMETHACIN 25 MG CAP PO SCH ×2 (18:33→19:57)
[2018-09-24] MEDS: ASPIRIN 81 MG CHEW TABLET PO SCH (18:58)
--- NOTE | 2018-09-24 19:39 | IPN ---
DATE: 09/24/2018 SUBJECTIVE: The patient is seen and examined in the room today. The patient stated that there is no recurrence of hematuria. The patient feels that he may be improving, but he is not sure. The patient still complains about significant bilateral knee and ankle tenderness. OBJECTIVE: VITAL SIGNS: Temperature 97.5, pulse 88, respirations 18, blood pressure 138/76, pulse oximetry 97% on 2 liters oxygen. GENERAL: Mild distress secondary to persistent lower extremity pain. Alert and awake. HEENT: Normocephalic, atraumatic. Extraocular motors are grossly intact. CARDIOVASCULAR: Positive S1, S2. LUNGS: Positive crackles bilaterally. No wheezes appreciated. ABDOMEN: Obese, nontender. Bowel sounds present. EXTREMITIES: 2 to 3+ pitting edema. There is a bandage on the right second digit with open wound. LABORATORY DATA: WBC is 11.1, hemoglobin 11.6, hematocrit 38.1, platelet count is 204. Sodium is 138, potassium 3.5, chloride 103, carbon dioxide 29, BUN 21, creatinine 0.87, GFR greater than 60, fasting glucose 221, calcium 8.6, magnesium 2.2. ASSESSMENT AND PLAN: 1. 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 The patient has an ejection fraction of 30%. Currently, the patient is on IV diuretic with holding parameters. We will continue to the patient's input and output and daily weights. We will titrate the Lasix dose if the patient does not respond to the regimen. Continue to titrate oxygen as tolerated. 2. Bilateral knee and ankle pain. The patient had a knee x-ray performed on 09/22/2018 and there were no significant findings noted. However, the patient complains of worsening of knee and joint pain. We will reevaluate with imaging studies. 3. Obstructive sleep apnea. Refused continuous positive airway pressure (CPAP). 4. History of atrial fibrillation. The patient has ventricular pacer. 5. Diabetes. On insulin sliding scale. 6. Right second finger joint infection. The patient was just recently discharged from [facility]. The patient is currently on Unasyn. 7. Coronary artery disease, status post coronary artery bypass graft (CABG) times four vessels. Previously, the patient had hematuria. The patient is on aspirin. 8. Gross hematuria, resolved. The patient will go to [place] for staghorn stone extraction on 10/03/2018. The patient's Coumadin is on hold. 9. Peripheral neuropathy. On gabapentin. 10. Depression. On sertraline. 11. Morbid obesity complicating the patient's care. 12. History of benign prostatic hypertrophy (BPH). Continue outpatient followup. 13. Acute exacerbation of Tophi gout. On prednisone and Uloric. 14. Chronic kidney disease stage II. Continue to monitor. 15. History of lumbar spine stenosis. Continue gabapentin. 16. Deep vein thrombosis (DVT) prophylaxis. Warfarin is on hold due to history of hematuria. Today the patient's INR is still therapeutic. The patient will be on thromboembolic compression stockings (TEDS) compression.
[2018-09-24] MEDS: TEMAZEPAM 15 MG CAP PO SCH (19:56)
[2018-09-24] MEDS: predniSONE 20 MG TAB PO SCH (19:57)
--- NOTE | 2018-09-24 20:44 | ECHO ---
DATE OF PROCEDURE: 09/24/2018 REFERRING PHYSICIAN: Dr. Silva INDICATION: Edema. Height 178 cm, weight 135 kg. DIMENSIONS: IVS: 1.4 LV: 6.3 LVPW: 1.5 LA: 5.2 Aorta: 3.2 IVC: 2.3 Mitral E wave velocity: 96 E prime septal: 6.3 E prime lateral: 7.4 FINDINGS: The study is a very limited technical quality corresponding to patient's body habitus. Left ventricle is moderately dilated and severely globally hypokinetic. I estimate overall EF around 30-35%. Right ventricle was poorly visualized but appears dilated as well. There is severe biatrial enlargement. Echo artifacts consistent with pacemaker or implantable cardioverter defibrillator (ICD) electrodes are apparent in right-sided heart chambers. Aortic valve appears to be bioprosthesis. Based on limited visualization, it appears normal. There are degenerative abnormalities of mitral valve with mitral annular calcifications but mobility is preserved. Tricuspid valve also appears normal. Pulmonic valve was not seen. No pericardial effusion is present. Inferior vena cava is dilated but partially collapses with respiration indicative of at least mildly elevated central venous pressure. Aortic root is normal. Aortic arch and abdominal aorta were not well seen. Doppler interrogation of aortic bioprosthesis reveals no insufficiency and mean gradient only 4 mmHg. There is trace mitral insufficiency and no significant tricuspid insufficiency. Evaluation of diastolic function is limited due to underlying atrial fibrillation. CONCLUSIONS: 1. Study is of markedly limited technical quality with difficult visualization. 2. Moderately dilated left ventricle with moderate left ventricular hypertrophy and global hypokinesis, estimated ejection fraction (EF) around 30-35% based on very poor views. 3. Likely bioprosthetic aortic valve with normal function. 4. Degenerative abnormalities of mitral valve but no significant stenosis or insufficiency. 5. High central venous pressure. 6. Unable to estimate pulmonary artery pressure. 7. Severe biatrial enlargement. 8. Echo artifact in right-sided heart chambers likely represents pacemaker or ICD electrodes. COMMENT: Subacute bacterial endocarditis (SBE) prophylaxis is recommended. MTDD
[2018-09-25] VITALS (19 sets, daily range): BP systolic 120–148; BP diastolic 58–82; O2SAT 94–99
[2018-09-25 00:13] LABS: HEMOGLOBIN 11.2 g/dl (13.5-17.5)
[2018-09-25] MEDS: AMPICILLIN SOD/SULBACTAM SOD 1.5 GM in D5W MINI-BAG PLUS 50 ML IV SCH ×4 (05:00→23:00)
[2018-09-25 05:57] LABS: BASO % 0.1 % (0.0-1.0); EOS % 0.1 % (0.0-3.0); HEMATOCRIT 37.8 % (42.0-52.0); HEMOGLOBIN 11.3 g/dl (13.5-17.5); LYMPH # 1.3 10^3/uL (1.5-4.5); LYMPH % 12.2 % (24.0-44.0); MEAN CORPUSCULAR HEMOGLOBIN 25.7 pg (27.0-33.0); MEAN CORPUSCULAR HGB CONC 29.9 g/dl (32.0-36.5); MEAN CORPUSCULAR VOLUME 86.1 fl (80.0-96.0); MONO # 0.5 10^3/uL (0.0-0.8); MONO % 4.7 % (0.0-5.0); NEUTROPHILS # 8.4 10^3/uL (1.8-7.7); NEUTROPHILS % 81.8 % (36.0-66.0); PLATELET COUNT, AUTOMATED 210 10^3/uL (150-450); RED BLOOD COUNT 4.39 10^6/uL (4.30-6.10); WHITE BLOOD COUNT 10.3 10^3/uL (4.0-10.0)
[2018-09-25] MEDS: FUROSEMIDE 100 MG/10 ML VIAL (J1940) IV SCH ×3 (06:00→17:42)
[2018-09-25 06:08] LABS: INR 1.95; PROTHROMBIN TIME 22.6 SECONDS (12.1-14.4)
[2018-09-25 06:10] LABS: BLOOD UREA NITROGEN 29 MG/DL (7-18); CALCIUM LEVEL 8.7 MG/DL (8.8-10.2); CARBON DIOXIDE LEVEL 28 MEQ/L (21-32); CHLORIDE LEVEL 105 MEQ/L (98-107); CREATININE FOR GFR 1.01 MG/DL (0.70-1.30); GLOMERULAR FILTRATION RATE > 60.0 (>49); GLUCOSE, FASTING 331 MG/DL (70-100); MAGNESIUM LEVEL 2.1 MG/DL (1.8-2.4); POTASSIUM SERUM 4.1 MEQ/L (3.5-5.1); SODIUM LEVEL 139 MEQ/L (136-145)
[2018-09-25 08:11] LABS: NT-PRO BNP 2279 PG/ML (<125)
[2018-09-25] MEDS: FEBUXOSTAT 40 MG TABLET (ULORIC) PO SCH (08:22)
[2018-09-25] MEDS: GABAPENTIN 300 MG CAP PO SCH ×2 (08:22→20:01)
[2018-09-25] MEDS: HumaLOG INSULIN (NovoLOG) PER UNIT SC SCH ×4 (08:22→20:01)
[2018-09-25] MEDS: predniSONE 20 MG TAB PO SCH ×2 (08:22→20:01)
[2018-09-25] MEDS: SERTRALINE HCL 50 MG TAB PO SCH (08:22)
[2018-09-25] MEDS: ASPIRIN 81 MG CHEW TABLET PO SCH (08:23)
[2018-09-25] MEDS: LOSARTAN 25 MG TAB PO SCH (08:23)
[2018-09-25] MEDS: ATORVASTATIN 20 MG TAB PO SCH (08:23)
[2018-09-25] MEDS: INDOMETHACIN 25 MG CAP PO SCH ×3 (08:23→20:01)
[2018-09-25] MEDS: POTASSIUM CHLORIDE 10 MEQ SR TABLET PO SCH (08:24)
[2018-09-25] MEDS: oxyCODONE 5MG TAB PO PRN ×2 (08:31→21:20)
--- NOTE | 2018-09-25 08:35 | REP ---
Bilateral ankle series: Eight views. History: Bilateral ankle tenderness. Findings: Four views of each ankle demonstrate diffuse soft tissue swelling and extensive vascular calcification bilaterally. There are bilateral Achilles calcaneal spurs. There is some plantar spurring on the left. There is bilateral tibiotalar osteoarthritic spurring. No fractures seen. Mild diffuse osteopenia is noted. There is midfoot osteoarthritic spurring bilaterally. Impression: Osteoarthritic changes. Advanced vascular calcification. Diffuse swelling. Heel spurs. No acute bony abnormality. Electronically Signed by Du Fraire MD 09/25/2018 08:27 A
--- NOTE | 2018-09-25 08:36 | REP ---
Bilateral knee series: Eight views. History: Bilateral knee tenderness. Comparison study: September 22, 2018. Findings: There is mild diffuse osteopenia. Extensive vascular calcifications again noted. There is three compartment osteoarthritis bilaterally, left more so than right. There is evidence of left-sided date of joint effusion swelling at the suprapatellar bursa. This is a new finding. No fracture is seen. Impression: Degenerative and osteoarthritic changes. Vascular calcification. Evidence of joint effusion on the left as a new finding. Electronically Signed by Du Fraire MD 09/25/2018 08:28 A
[2018-09-25 12:14] LABS: HEMATOCRIT 38.2 % (42.0-52.0); HEMOGLOBIN 11.5 g/dl (13.5-17.5)
[2018-09-25 18:04] LABS: HEMOGLOBIN 10.6 g/dl (13.5-17.5)
--- NOTE | 2018-09-25 19:58 | IPNPDOC ---
Text Note Date of Service The patient was seen on 09/25/18. NOTE SUBJECTIVE: The patient is seen and examined in the room today. Patient state his joint pains are improving. He also feels his swellings are improving too. OBJECTIVE: VITAL SIGNS: Listed below. GENERAL: No acute distress. Alert and awake. HEENT: Normocephalic, atraumatic. Extraocular motors are grossly intact. CARDIOVASCULAR: Positive S1, S2. LUNGS: Positive crackles bilaterally. No wheezes appreciated. ABDOMEN: Obese, nontender. Bowel sounds present. EXTREMITIES: 2 to 3+ pitting edema. There is a bandage on the right second digit. LABORATORY DATA: Listed below. ASSESSMENT AND PLAN: #. 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 - Ejection fraction of 30%. We will continue to the patient's input and output and daily weights. Adjusting the Lasix dose as needed. Continue to titrate oxygen as tolerated. #. Bilateral knee and ankle pain. - Repeated knee and ankle x-rays reviewed. Patient has gout flares. On steroid. #. Obstructive sleep apnea. - Refused continuous positive airway pressure (CPAP). #. History of atrial fibrillation. The patient has ventricular pacer. #. Diabetes. On insulin sliding scale. #. Right second finger joint infection. The patient was just recently discharged from [facility]. The patient is currently on Unasyn. #. Coronary artery disease, status post coronary artery bypass graft (CABG) times four vessels. Previously, the patient had hematuria. The patient is on aspirin. #. Gross hematuria, resolved. The patient will go to [place] for staghorn stone extraction on 10/03/2018. The patient's Coumadin is on hold. #. Peripheral neuropathy. On gabapentin. #. Depression. On sertraline. #. Morbid obesity complicating the patient's care. #. History of benign prostatic hypertrophy (BPH). Continue outpatient followup. #. Acute exacerbation of Tophi gout. On prednisone and Uloric. #. Chronic kidney disease stage II. Continue to monitor. #. History of lumbar spine stenosis. Continue gabapentin. #. Deep vein thrombosis (DVT) prophylaxis. Warfarin is on hold due to history of hematuria. Today the patient's INR is still therapeutic. The patient will be on thromboembolic compression stockings (TEDS) compression. A-FIB/CHADSVASC A-FIB History Current/History of A-Fib/PAF?: No VS,Fishbone, I+O VS, Fishbone, I+O Laboratory Tests 09/25/18 00:01 09/25/18 05:25 Red Blood Count 4.39, Mean Corpuscular Volume 86.1, Mean Corpuscular Hemoglobin 25.7 L, Mean Corpuscular Hemoglobin Concent 29.9 L, Red Cell Distribution Width 17.1 H, Neutrophils (%) (Auto) 81.8 H, Lymphocytes (%) (Auto) 12.2 L, Monocytes (%) (Auto) 4.7, Eosinophils (%) (Auto) 0.1, Basophils (%) (Auto) 0.1, Neutrophils # (Auto) 8.4 H, Lymphocytes # (Auto) 1.3 L, Monocytes # (Auto) 0.5, Eosinophils # (Auto) 0.0, Basophils # (Auto) 0.0, Calcium Level 8.7 L 09/25/18 11:41 09/25/18 17:51 Vital Signs Date Time Temp Pulse Resp B/P (MAP) Pulse Ox O2 Delivery O2 Flow Rate FiO2 09/25/18 17:00 94 Nasal Cannula 2.0 09/25/18 16:00 97.2 89 18 129/75 (93) I&O- Last 24 Hours up to 6 AM 09/25/18 06:00 Intake Total 1260 ml Output Total 1550 ml Balance -290 ml HARSH SAHU DO Sep 25, 2018 19:58
[2018-09-25] MEDS: TEMAZEPAM 15 MG CAP PO SCH (21:20)
[2018-09-26] VITALS (10 sets, daily range): BP systolic 100–152; BP diastolic 61–91; O2SAT 93–98
[2018-09-26 00:11] LABS: HEMATOCRIT 35.8 % (42.0-52.0); HEMOGLOBIN 10.9 g/dl (13.5-17.5)
[2018-09-26] MEDS: AMPICILLIN SOD/SULBACTAM SOD 1.5 GM in D5W MINI-BAG PLUS 50 ML IV SCH (05:00)
[2018-09-26 05:37] LABS: BASO % 0.1 % (0.0-1.0); EOS % 0.1 % (0.0-3.0); LYMPH % 11.5 % (24.0-44.0); MEAN CORPUSCULAR HEMOGLOBIN 26.1 pg (27.0-33.0); MEAN CORPUSCULAR HGB CONC 30.6 g/dl (32.0-36.5); MEAN CORPUSCULAR VOLUME 85.5 fl (80.0-96.0); MONO # 0.4 10^3/uL (0.0-0.8); MONO % 4.3 % (0.0-5.0); NEUTROPHILS # 7.5 10^3/uL (1.8-7.7); NEUTROPHILS % 83.2 % (36.0-66.0); PLATELET COUNT, AUTOMATED 207 10^3/uL (150-450); RED BLOOD COUNT 4.21 10^6/uL (4.30-6.10)
[2018-09-26 05:48] LABS: INR 1.85; PROTHROMBIN TIME 21.7 SECONDS (12.1-14.4)
[2018-09-26] MEDS: FUROSEMIDE 100 MG/10 ML VIAL (J1940) IV SCH ×2 (06:00)
[2018-09-26 06:04] LABS: BLOOD UREA NITROGEN 40 MG/DL (7-18); CALCIUM LEVEL 8.8 MG/DL (8.8-10.2); CARBON DIOXIDE LEVEL 31 MEQ/L (21-32); CHLORIDE LEVEL 103 MEQ/L (98-107); CREATININE FOR GFR 1.06 MG/DL (0.70-1.30); GLOMERULAR FILTRATION RATE > 60.0 (>49); GLUCOSE, FASTING 341 MG/DL (70-100); POTASSIUM SERUM 4.1 MEQ/L (3.5-5.1); SODIUM LEVEL 139 MEQ/L (136-145)
[2018-09-26] MEDS: ASPIRIN 81 MG CHEW TABLET PO SCH (08:09)
[2018-09-26] MEDS: POTASSIUM CHLORIDE 10 MEQ SR TABLET PO SCH (08:10)
[2018-09-26] MEDS: GABAPENTIN 300 MG CAP PO SCH ×2 (08:10→21:44)
[2018-09-26] MEDS: SERTRALINE HCL 50 MG TAB PO SCH (08:10)
[2018-09-26] MEDS: predniSONE 20 MG TAB PO SCH (08:10)
[2018-09-26] MEDS: FEBUXOSTAT 40 MG TABLET (ULORIC) PO SCH (08:10)
[2018-09-26] MEDS: ATORVASTATIN 20 MG TAB PO SCH (08:10)
[2018-09-26] MEDS: INDOMETHACIN 25 MG CAP PO SCH (08:10)
[2018-09-26] MEDS: LOSARTAN 25 MG TAB PO SCH (08:11)
[2018-09-26] MEDS: HumaLOG INSULIN (NovoLOG) PER UNIT SC SCH ×4 (08:11→21:43)
[2018-09-26] MEDS ORDERED: LIDOCAINE 1% MDV 20ML VIAL As Ordered ONE (09:31)
--- NOTE | 2018-09-26 09:40 | REP ---
Left elbow: Four views. History: Rule out fracture. Findings: Four views left elbow demonstrate extensive vascular calcification and some dystrophic calcification in the soft tissues and dorsally adjacent to the proximal forearm. There is diffuse osteopenia. Mild coronoid and olecranon process spurring is seen. There is soft tissue swelling about the olecranon process. This no evidence of fracture. Impression: No fracture noted. Olecranon soft tissue swelling and dystrophic soft-tissue calcification. Vascular calcification. Mild proximal ulnar spurring. Electronically Signed by Du Fraire MD 09/26/2018 09:31 A
[2018-09-26] MEDS ORDERED: TRIAMCINOLONE ACETONIDE SUSP 40 MG/ML VIAL (J3301) IA ONE (10:00)
[2018-09-26] MEDS ORDERED: LIDOCAINE 1% MDV 20ML VIAL SC ONE (11:20)
--- NOTE | 2018-09-26 12:23 | CR ---
DATE OF CONSULTATION: 09/26/2018 REQUESTING PHYSICIAN: Dr. Scott CHIEF COMPLAINT: Left knee pain and left elbow drainage. HISTORY: This is a 63-year-old gentleman who was admitted about for days ago with some lower extremity edema, knee pain, congestive heart failure, management of diabetes. He says he has been seen for his knees several times. He has been seen at our office in the past for cortisone injections. He has also been [place] north of here by orthopedic doctors there. Apparently, he has been poorly controlled diabetic. He has multiple medical problems. I was asked to see him because of some drainage over the olecranon of his left elbow, this back ongoing for many days and was felt to be related to gout, which he has had multiple attacks with. Also for evaluation of his left knee problem. He has had some pain and swelling in his left knee. He had a recent surgery on his right index finger at [facility]. PAST MEDICAL HISTORY: Notable for coronary artery disease, coronary artery bypass graft, valve replacement, type 2 diabetes, hypertension, gout, sleep apnea, renal failure, hyperlipidemia, benign prostatic hypertrophy (BPH), hypogonadism osteoarthritis, atrial fibrillation, vitamin B12, microcytic anemia, coronary artery disease, ischemic cardiomyopathy, lumbar stenosis, morbid obesity, nephrolithiasis. ALLERGIES: He has no known drug allergies. PAST SURGICAL HISTORY: Includes coronary bypass graft. He had a pacemaker defibrillator, bilateral cataracts, valve replacement. He has had a right index finger debridement. FAMILY HISTORY: Consistent with congestive heart failure (CHF), cancer, kidney stones. SOCIAL HISTORY: Denies any smoking. He is single. REVIEW OF SYSTEMS: Denies any current chest pain or current shortness of breath, abdominal pain. Does relate some joint pain. He relates his left knee has been sore and swollen. No recent fevers other than a few days ago when he was admitted. PHYSICAL EXAMINATION He is alert, oriented, obese gentleman, no acute distress. HEENT: Extraocular muscles intact. He has regular nonlabored breathing. Abdomen is obese. His left elbow demonstrates a small 4 mm or so opening over the tip of the olecranon that is draining some thick white fluid that is consistent with gout crystals, most likely. Does not appear to be infected. It is decompressed. His right knee demonstrates minimal effusion. No redness. No sign of infection. Left knee demonstrates a grade 2 effusion. No redness. No sign of infection and he has range of motion from 0 to 90 degrees. X-rays reviewed and show osteoarthritis of his left, moderate to severe. IMPRESSION: Patient with multiple medical problems and admitted for edema, congestive heart failure. His knee is giving him a fair amount of difficulty. He was hoping for an aspiration of that knee. In terms of his left elbow, I would just continue to keep the dressing on that and let that drain. He is on antibiotics. I do not think there is any surgical indication there at all. As far as his left knee goes, I have agreed to aspirate and inject a small amount of cortisone in his knee, even was blood sugars have been somewhat elevated, I think that is mostly due to his systemic steroid use. Under sterile conditions and after a time-out was performed, I aspirated off about 50 mL of straw-colored fluid that was translucent from his left knee. There was no sign of infection. There was no sign of any gout crystals. I then injected less than 1/2 mL of Kenalog 40 with some lidocaine in his knee and this seemed to provide him some benefit. Sterile Band-Aid was applied. At this point, recommendation would be activity as tolerated. Would certainly continue aggressive management of his blood sugars. Would have him follow up with his orthopedic doctor that he saw recently I believe in the [place] area. If there are further issues, let us know. The finger will need to be treated at [facility]. There is nothing further to do with that at this point in my opinion.
[2018-09-26] MEDS ORDERED: TORSEMIDE 20 MG TAB PO ONE (12:45)
--- NOTE | 2018-09-26 13:53 | IPNPDOC ---
Text Note Date of Service The patient was seen on 09/26/18. NOTE Subjective: Patient is a 63-year-old male with a PMHx of CAD s/p CABG, Systolic CHF 2/2 ischemic cardiomyopathy, Hx Bioprosthetic AVR, A. fib (on Coumadin), Hx of Dual chamber PM, HTN, DLP, DM2, DAVID on CPAP, CKD3, Gout (on Prednisone), OA, BPH, Hx of Nephrolithiasis, Morbid obesity, who presented to the ER with complaints of LE swelling and knee pain. Patient was admitted to the hospitalist service for further evaluation, treatment for his suspected congestive heart failure exacerbation. Patient was seen and examined at the bedside. Currently patient notes that his swelling is slightly improved. He has been able to ambulate. Today, patient had received a left knee tap with corticosteroid injection with orthopedic surgery. Patient notes that his pain is doing much better. He denies chest pain, shortness of breath or palpitations. Denies nausea, vomiting, abdominal pain. Denies constipation, diarrhea. Although patient has been on diuretics, he has not urinated significantly, but he denies any discomfort with urination. Denies any blood in his urine. Objective: Vitals (See below) General: Lying in bed, no acute distress, comfortable, AAOx3 HEENT: NC, AT CVS: RRR, +S1S2 Lungs: Fair air entry b/l, auscultation without any wheezing, rales or rhonchi Abdomen: Soft, ND, NT Extremities: 2+ pitting edema bilaterally, - Calf tenderness Joint: Left knee with iodine staining noted; small bandage present where needle was inserted Assessment and plan: Bilateral LE swelling - likely 2/2 Decompensated Diastolic and Systolic CHF (EF: 30%) - Patient presented to the emergency room with worsening lower extremity edema - Currently does not have any shortness of breath and is not requiring any supplemental oxygen - BNP was noted to be elevated - ECHO 09/24: EF: 30-35%, Bioprosthetic AV, high CVP, severe biatrial enlargement, - CXR 09/22: Exam limitations and chronic changes with other findings as described above. - Duplex US 09/22: There is no ultrasonographic evidence of deep venous thr ombosis involving any of the visualized deep venous structures of the right and left thigh, as described above. - c/w strict ins/outs, daily weights - Patient has not had adequate diuresis with furosemide; will discontinue; will attempt a single dose of torsemide PO - Will likely have to hold off on further diuresis at this time given slow rise in BUN/Cr moving forward Bilateral knee pain (L > R) - likely 2/2 gout flare / OA - XR Knee 09/22: Degenerative and osteoarthritic changes. Vascular sujey cification. Evidence of joint effusion on the left as a new finding. - XR Ankle 09/22: Osteoarthritic changes. Advanced vascular calcification. Diffuse swelling. Heel spurs. No acute bony abnormality. - Patient has had his L knee joint aspirated and corticosteroids injected today (09/26) with Orthopedic surgery - Will reduce Prednisone back to home dose - Orthopedic surgery on consult; Dr. Byrne Left elbow drainage - likely 2/2 gout tophi - Patient has reported that he has been putting his weight on his elbow - Area appears to be draining white output - L Elbow XR 09/26: No fracture noted. Olecranon soft tissue swelling and dystrophic soft-tissue calcification. Vascular calcification. Mild proximal ulnar spurring. - Will c/w antibiotics from outpatient DAVID on CPAP - non-compliant with therapy Hx of A. fib - Currently not on any rate / rhythm control mediations - Patient has a dual chamber PM - INR subtherapeutic (re: held 2/2 hematuria, has now resolved) - Will restart full anticoagulation with Coumadin DM2 - c/w ISS - Will add Levemir for better glycemic control Right Second Finger Joint Infection - - Patient has had intervention at [facility] - Has been on Augmentin as an outpatient; was switched to Unasyn when he was admitted - Will return the patient back to Augmentin today - Will have outpatient follow-up with orthopedic surgery CAD s/p CABG - c/w ASA, Atorvastatin, Losartan s/p Hematuria - possibly 2/2 Staghorn Stone - Extraction has been scheduled for 10/03/2018 in [place] Peripheral neuropathy / Hx of Lumbar Spinal stenosis - c/w Gabapentin Depression - c/w Sertraline BPH - Currently not on medications Morbid obesity - Complicating medical care Gout - likely with acute flare - c/w Prednisone and Febuxostat CKD3 - Cr appears to be at baseline GI prophylaxis - c/w DVT prophylaxis - c/w SCDs / TEDs - Will restart Coumadin VS,Fishbone, I+O VS, Fishbone, I+O Laboratory Tests 09/25/18 17:51 09/26/18 00:05 09/26/18 04:56 Red Blood Count 4.21 L, Mean Corpuscular Volume 85.5, Mean Corpuscular Hemoglobin 26.1 L, Mean Corpuscular Hemoglobin Concent 30.6 L, Red Cell Distrib ution Width 17.0 H, Neutrophils (%) (Auto) 83.2 H, Lymphocytes (%) (Auto) 11.5 L, Monocytes (%) (Auto) 4.3, Eosinophils (%) (Auto) 0.1, Basophils (%) (Auto) 0.1, Neutrophils # (Auto) 7.5, Lymphocytes # (Auto) 1.0 L, Monocytes # (Auto) 0.4, Eosinophils # (Auto) 0.0, Basophils # (Auto) 0.0, Calcium Level 8.8 Vital Signs Date Time Temp Pulse Resp B/P (MAP) Pulse Ox O2 Delivery O2 Flow Rate FiO2 09/26/18 12:00 98.1 80 18 100/86 (91) 93 09/26/18 08:00 2.0 09/25/18 17:00 Nasal Cannula I&O- Last 24 Hours up to 6 AM 09/26/18 06:00 Intake Total 1440 ml Output Total 1550 ml Balance -110 ml SAM TRAN MD Sep 26, 2018 13:53
[2018-09-26] MEDS ORDERED: SLF 3 ML SYR IV PRN (14:30)
[2018-09-26] MEDS: WARFARIN SOD 3 MG TAB PO SCH (17:34)
[2018-09-26] MEDS ORDERED: LEVEMIR (INSULIN DETEMIR) 1 UNITS/0.01ML SC SCH (21:00)
[2018-09-26] MEDS: AUGMENTIN 875 MG TAB PO SCH (21:44)
[2018-09-26] MEDS: TEMAZEPAM 15 MG CAP PO SCH (21:44)
[2018-09-26] MEDS: predniSONE 10 MG TAB PO SCH (21:44)
[2018-09-26] MEDS: SLF 3 ML SYR IV SCH (21:45)
[2018-09-26] MEDS ORDERED: HumaLOG INSULIN (NovoLOG) PER UNIT SC ONE (23:30)
[2018-09-27] MEDS ORDERED: HumaLOG INSULIN (NovoLOG) PER UNIT SC ONE (04:00)
[2018-09-27 06:00] VITALS: BP 151/90
[2018-09-27] MEDS: SLF 3 ML SYR IV SCH ×3 (06:03→21:40)
[2018-09-27 06:45] LABS: BASO % 0.1 % (0.0-1.0); EOS % 0.1 % (0.0-3.0); HEMOGLOBIN 10.4 g/dl (13.5-17.5); LYMPH # 1.4 10^3/uL (1.5-4.5); LYMPH % 12.7 % (24.0-44.0); MEAN CORPUSCULAR HEMOGLOBIN 25.6 pg (27.0-33.0); MEAN CORPUSCULAR HGB CONC 30.6 g/dl (32.0-36.5); MEAN CORPUSCULAR VOLUME 83.7 fl (80.0-96.0); MONO # 0.4 10^3/uL (0.0-0.8); MONO % 3.9 % (0.0-5.0); NEUTROPHILS % 82.3 % (36.0-66.0); PLATELET COUNT, AUTOMATED 236 10^3/uL (150-450); RED BLOOD COUNT 4.06 10^6/uL (4.30-6.10)
[2018-09-27 07:00] LABS: INR 1.95; PROTHROMBIN TIME 22.6 SECONDS (12.1-14.4)
[2018-09-27 07:13] LABS: BLOOD UREA NITROGEN 43 MG/DL (7-18); CALCIUM LEVEL 8.6 MG/DL (8.8-10.2); CARBON DIOXIDE LEVEL 28 MEQ/L (21-32); CHLORIDE LEVEL 103 MEQ/L (98-107); CREATININE FOR GFR 0.97 MG/DL (0.70-1.30); GLOMERULAR FILTRATION RATE > 60.0 (>49); GLUCOSE, FASTING 295 MG/DL (70-100); POTASSIUM SERUM 4.2 MEQ/L (3.5-5.1); SODIUM LEVEL 137 MEQ/L (136-145)
[2018-09-27] MEDS: GABAPENTIN 300 MG CAP PO SCH ×2 (08:34→21:37)
[2018-09-27] MEDS: predniSONE 10 MG TAB PO SCH ×2 (08:34→21:37)
[2018-09-27] MEDS: LOSARTAN 25 MG TAB PO SCH (08:34)
[2018-09-27] MEDS: AUGMENTIN 875 MG TAB PO SCH ×2 (08:34→21:37)
[2018-09-27] MEDS: SERTRALINE HCL 50 MG TAB PO SCH (08:35)
[2018-09-27] MEDS: ASPIRIN 81 MG CHEW TABLET PO SCH (08:35)
[2018-09-27] MEDS: ATORVASTATIN 20 MG TAB PO SCH (08:35)
[2018-09-27] MEDS: FEBUXOSTAT 40 MG TABLET (ULORIC) PO SCH (08:35)
[2018-09-27] MEDS: POTASSIUM CHLORIDE 10 MEQ SR TABLET PO SCH (08:35)
[2018-09-27] MEDS: HumaLOG INSULIN (NovoLOG) PER UNIT SC SCH ×4 (08:36→21:40)
[2018-09-27] MEDS: TORSEMIDE 20 MG TAB PO SCH (08:41)
[2018-09-27] MEDS ORDERED: LEVEMIR (INSULIN DETEMIR) 1 UNITS/0.01ML SC SCH (09:00)
--- NOTE | 2018-09-27 10:10 | IPNPDOC ---
Text Note Date of Service The patient was seen on 09/27/18. NOTE Subjective: Patient is a 63-year-old male with a PMHx of CAD s/p CABG, Systolic CHF 2/2 ischemic cardiomyopathy, Hx Bioprosthetic AVR, A. fib (on Coumadin), Hx of Dual chamber PM, HTN, DLP, DM2, DAVID on CPAP, CKD3, Gout (on Prednisone), OA, BPH, Hx of Nephrolithiasis, Morbid obesity, who presented to the ER with complaints of LE swelling and knee pain. Patient was admitted to the hospitalist service for further evaluation, treatment for his suspected congestive heart failure exacerbation. Patient was seen and examined at the bedside. Reports that he did urinate very significantly yesterday. He still reports leg swelling and denies any chest pain or difficulty breathing. Denies nausea, vomiting, abdominal pain, constipation, diarrhea or discomfort with urination. Objective: Vitals (See below) General: Lying in bed, no acute distress, comfortable, AAOx3 HEENT: NC, AT CVS: RRR, +S1S2 Lungs: Fair air entry b/l, no evidence of wheezing, rhonchi or rales on auscultation Abdomen: Soft, nondistended, without tenderness Extremities: There is still 2+ pitting edema bilaterally, - Calf tenderness Assessment and plan: Bilateral LE swelling - likely 2/2 Decompensated Diastolic and Systolic CHF (EF: 30%) - Patient presented to the emergency room with worsening lower extremity edema - Currently does not have any shortness of breath and is not requiring any supplemental oxygen - BNP was noted to be elevated - ECHO 09/24: EF: 30-35%, Bioprosthetic AV, high CVP, severe biatrial enlargement, - CXR 09/22: Exam limitations and chronic changes with other findings as described above. - Duplex US 09/22: There is no ultrasonographic evidence of deep venous thrombosis involving any of the visualized deep venous structures of the right and left thigh, as described above. - c/w strict ins/outs, daily weights, will limit fluid intake to 1700 daily - c/w Torsemide 60 daily - has had adequate diuresis with this Bilateral knee pain (L > R) - likely 2/2 gout flare / OA - XR Knee 09/22: Degenerative and osteoarthritic changes. Vascular calcification. Evidence of joint effusion on the left as a new finding. - XR Ankle 09/22: Osteoarthritic changes. Advanced vascular calcification. Diffuse swelling. Heel spurs. No acute bony abnormality. - Patient has had his L knee joint aspirated and corticosteroids injected (09/26) with Orthopedic surgery - c/w Prednisone at home dose - Orthopedic surgery on consult; Dr. Byrne Left elbow drainage - likely 2/2 gout tophi - Patient has reported that he has been putting his weight on his elbow - Area appears to be draining white output - L Elbow XR 09/26: No fracture noted. Olecranon soft tissue swelling and dystrophic soft-tissue calcification. Vascular calcification. Mild proximal ulnar spurring. - c/w antibiotics from outpatient; Augmentin - Wound care consult today DAVID on CPAP - non-compliant with therapy Hx of A. fib - Currently not on any rate / rhythm control mediations - Patient has a dual chamber PM - INR subtherapeutic (re: held 2/2 hematuria, has now resolved); improving - c/w Coumadin DM2 - c/w ISS and Levemir with adjusted dose Right Second Finger Joint Infection - - Patient has had intervention at [facility] - Has been on Augmentin as an outpatient; was switched to Unasyn when he was admitted - c/w Augmentin currently - Outpatient follow-up with orthopedic surgery CAD s/p CABG - c/w ASA, Atorvastatin, Losartan s/p Hematuria - possibly 2/2 Staghorn Stone - Extraction has been scheduled for 10/03/2018 in [place] Peripheral neuropathy / Hx of Lumbar Spinal stenosis - c/w Gabapentin Depression - c/w Sertraline BPH - Currently not on medications Morbid obesity - Complicating medical care Gout - likely with acute flare - c/w Prednisone and Febuxostat CKD3 - Cr appears to be at baseline DVT prophylaxis - c/w SCDs / TEDs - c/w Coumadin - awaiting therapeutic INR VS,Rowenae, I+O VS, Rowenae, I+O Laboratory Tests 09/27/18 06:30 Red Blood Count 4.06 L, Mean Corpuscular Volume 83.7, Mean Corpuscular Hemoglobin 25.6 L, Mean Corpuscular Hemoglobin Concent 30.6 L, Red Cell Distribution Width 16.8 H, Neutrophils (%) (Auto) 82.3 H, Lymphocytes (%) (Auto) 12.7 L, Monocytes (%) (Auto) 3.9, Eosinophils (%) (Auto) 0.1, Basophils (%) (A uto) 0.1, Neutrophils # (Auto) 9.0 H, Lymphocytes # (Auto) 1.4 L, Monocytes # (Auto) 0.4, Eosinophils # (Auto) 0.0, Basophils # (Auto) 0.0, Calcium Level 8.6 L Vital Signs Date Time Temp Pulse Resp B/P (MAP) Pulse Ox O2 Delivery O2 Flow Rate FiO2 09/27/18 08:34 151/90 09/27/18 06:00 96.7 82 14 99 2.0 09/26/18 22:00 Room Air I&O- Last 24 Hours up to 6 AM 09/27/18 05:59 Intake Total 1070 ml Output Total 2295 ml Balance -1225 ml SAM TRAN MD Sep 27, 2018 10:10
[2018-09-27] MEDS: oxyCODONE 5MG TAB PO PRN (12:24)
[2018-09-27 14:00] VITALS: BP 120/69
[2018-09-27] MEDS: WARFARIN SOD 3 MG TAB PO SCH (17:41)
[2018-09-27 21:00] VITALS: O2SAT 99
[2018-09-27] MEDS: TEMAZEPAM 15 MG CAP PO SCH (21:37)
[2018-09-27] MEDS: LEVEMIR (INSULIN DETEMIR) 1 UNITS/0.01ML SC SCH (21:39)
[2018-09-27 22:00] VITALS: BP 150/89
[2018-09-28] MEDS: SLF 3 ML SYR IV SCH ×3 (05:26→21:00)
[2018-09-28] MEDS: oxyCODONE 5MG TAB PO PRN ×4 (05:39→20:58)
[2018-09-28 06:00] VITALS: BP 103/55
[2018-09-28 06:52] LABS: BLOOD UREA NITROGEN 36 MG/DL (7-18); CALCIUM LEVEL 8.7 MG/DL (8.8-10.2); CARBON DIOXIDE LEVEL 26 MEQ/L (21-32); CHLORIDE LEVEL 108 MEQ/L (98-107); GLOMERULAR FILTRATION RATE > 60.0 (>49); GLUCOSE, FASTING 334 MG/DL (70-100); POTASSIUM SERUM 4.1 MEQ/L (3.5-5.1); SODIUM LEVEL 139 MEQ/L (136-145)
[2018-09-28 08:19] LABS: BASO % 0.1 % (0.0-1.0); EOS % 0.2 % (0.0-3.0); HEMATOCRIT 36.1 % (42.0-52.0); LYMPH # 1.9 10^3/uL (1.5-4.5); LYMPH % 14.7 % (24.0-44.0); MEAN CORPUSCULAR HEMOGLOBIN 25.8 pg (27.0-33.0); MEAN CORPUSCULAR HGB CONC 30.5 g/dl (32.0-36.5); MEAN CORPUSCULAR VOLUME 84.5 fl (80.0-96.0); MONO # 0.6 10^3/uL (0.0-0.8); MONO % 4.8 % (0.0-5.0); NEUTROPHILS # 10.1 10^3/uL (1.8-7.7); NEUTROPHILS % 79.1 % (36.0-66.0); PLATELET COUNT, AUTOMATED 245 10^3/uL (150-450); RED BLOOD COUNT 4.27 10^6/uL (4.30-6.10); WHITE BLOOD COUNT 12.7 10^3/uL (4.0-10.0)
[2018-09-28 08:33] LABS: INR 2.09; PROTHROMBIN TIME 23.9 SECONDS (12.1-14.4)
[2018-09-28] MEDS: LEVEMIR (INSULIN DETEMIR) 1 UNITS/0.01ML SC SCH ×2 (08:34→20:59)
[2018-09-28] MEDS: AUGMENTIN 875 MG TAB PO SCH ×2 (08:34→20:57)
[2018-09-28] MEDS: HumaLOG INSULIN (NovoLOG) PER UNIT SC SCH ×4 (08:35→20:59)
[2018-09-28] MEDS: FEBUXOSTAT 40 MG TABLET (ULORIC) PO SCH (08:35)
[2018-09-28] MEDS: POTASSIUM CHLORIDE 10 MEQ SR TABLET PO SCH (08:35)
[2018-09-28] MEDS: GABAPENTIN 300 MG CAP PO SCH ×2 (08:36→20:57)
[2018-09-28] MEDS: ASPIRIN 81 MG CHEW TABLET PO SCH (08:36)
[2018-09-28] MEDS: TORSEMIDE 20 MG TAB PO SCH (08:36)
[2018-09-28] MEDS: SERTRALINE HCL 50 MG TAB PO SCH (08:36)
[2018-09-28] MEDS: LOSARTAN 25 MG TAB PO SCH (08:36)
[2018-09-28] MEDS: predniSONE 10 MG TAB PO SCH ×2 (08:36→20:57)
[2018-09-28] MEDS: ATORVASTATIN 20 MG TAB PO SCH (08:36)
[2018-09-28 08:51] LABS: BLOOD UREA NITROGEN 36 MG/DL (7-18); CALCIUM LEVEL 8.9 MG/DL (8.8-10.2); CARBON DIOXIDE LEVEL 28 MEQ/L (21-32); CHLORIDE LEVEL 108 MEQ/L (98-107); CREATININE FOR GFR 0.87 MG/DL (0.70-1.30); GLOMERULAR FILTRATION RATE > 60.0 (>49); GLUCOSE, FASTING 316 MG/DL (70-100); MAGNESIUM LEVEL 2.1 MG/DL (1.8-2.4); POTASSIUM SERUM 4.2 MEQ/L (3.5-5.1); SODIUM LEVEL 141 MEQ/L (136-145)
[2018-09-28 12:14] LABS: C REACTIVE PROTEIN QUANTITATIV 5.78 MG/DL (0.00-0.30)
[2018-09-28 14:00] VITALS: BP 161/88
--- NOTE | 2018-09-28 15:35 | IPNPDOC ---
Text Note Date of Service The patient was seen on 09/28/18. NOTE Subjective: Patient is a 63-year-old male with a PMHx of CAD s/p CABG, Systolic CHF 2/2 ischemic cardiomyopathy, Hx Bioprosthetic AVR, A. fib (on Coumadin), Hx of Dual chamber PM, HTN, DLP, DM2, DAVID on CPAP, CKD3, Gout (on Prednisone), OA, BPH, Hx of Nephrolithiasis, Morbid obesity, who presented to the ER with complaints of LE swelling and knee pain. Patient was admitted to the hospitalist service for further evaluation, treatment for his suspected congestive heart failure exacerbation. Patient was seen and examined at the bedside. Currently patient has no new complaints. Denies chest pain, shortness of breath or palpitations. Denies any nausea, vomiting, abdominal pain. Once patient, diarrhea or any urinary discomfort. Patient reports that he has been working with physical therapy and has reported ambulation to the bathroom. Objective: Vitals (See below) General: Lying in bed, no acute distress, comfortable, AAOx3 HEENT: NC, AT CVS: RRR, +S1S2 Lungs: Fair air entry b/l, there appeared to be faint crackles bilaterally. No evidence of wheezing or rhonchi Abdomen: Remains soft, without any distention or tenderness Extremities: 2+ pitting edema still noted, - Calf tenderness Assessment and plan: Bilateral LE swelling - likely 2/2 Decompensated Diastolic and Systolic CHF (EF: 30%) - Patient has reported subjective improvement in lower extremity edema; has not been requiring any supplemental oxygen - BNP was noted to be elevated - ECHO 09/24: EF: 30-35%, Bioprosthetic AV, high CVP, severe biatrial enlargement, - CXR 09/22: Exam limitations and chronic changes with other findings as described above. - Duplex US 09/22: There is no ultrasonographic evidence of deep venous throm bosis involving any of the visualized deep venous structures of the right and left thigh, as described above. - c/w strict ins/outs - continues to remain negative fluid balanced, daily weights, will limit fluid intake to 1700 daily - c/w Torsemide 60 daily - has had adequate diuresis with this Bilateral knee pain (L > R) - likely 2/2 gout flare / OA - XR Knee 09/22: Degenerative and osteoarthritic changes. Vascular calcification. Evidence of joint effusion on the left as a new finding. - XR Ankle 09/22: Osteoarthritic changes. Advanced vascular calcification. Diffuse swelling. Heel spurs. No acute bony abnormality. - Patient has had his L knee joint aspirated and corticosteroids injected (09/26) with Orthopedic surgery - c/w Prednisone at home dose - Orthopedic surgery on consult; Dr. Byrne Left elbow drainage - likely 2/2 gout tophi - Patient has reported that he has been putting his weight on his elbow - Area appears to be draining white output - L Elbow XR 09/26: No fracture noted. Olecranon soft tissue swelling and dystrophic soft-tissue calcification. Vascular calcification. Mild proximal ulnar spurring. - c/w antibiotics from outpatient; Augmentin - Wound care consult today Leukocytosis - possibly 2/2 corticosteroids - Patient has been on elevated doses of corticosteroids orally and has received a corticosteroid joint injection - Review systems is negative for any additional sources of infection - Will continue with current antibiotic - Will trend CRP DAVID on CPAP - non-compliant with therapy Hx of A. fib - Currently not on any rate / rhythm control mediations - Patient has a dual chamber PM - INR therapeutic - c/w Coumadin DM2 with hyperglycemia - c/w ISS and Levemir with adjusted dose Right Second Finger Joint Infection - - Patient has had intervention at [facility] - Has been on Augmentin as an outpatient; was switched to Unasyn when he was admitted - c/w Augmentin currently - Outpatient follow-up with orthopedic surgery CAD s/p CABG - c/w ASA, Atorvastatin, Losartan s/p Hematuria - possibly 2/2 Staghorn Stone - Extraction has been scheduled for 10/03/2018 in [place] Peripheral neuropathy / Hx of Lumbar Spinal stenosis - c/w Gabapentin Depression - c/w Sertraline BPH - Currently not on medications Morbid obesity - Complicating medical care Gout - likely with acute flare - c/w Prednisone and Febuxostat CKD3 - Cr appears to be at baseline DVT prophylaxis - c/w full anticoagulation with Coumadin VS,Fishbone, I+O VS, Fishbone, I+O Laboratory Tests 09/28/18 06:18 Calcium Level 8.7 L 09/28/18 07:46 Calcium Level 8.9, Red Blood Count 4.27 L, Mean Corpuscular Volume 84.5, Mean Corpuscular Hemoglobin 25.8 L, Mean Corpuscular Hemoglobin Concent 30.5 L, Red Cell Distribution Width 17.2 H, Neutrophils (%) (Auto) 79.1 H, Lymphocytes (%) (Auto) 14.7 L, Monocytes (%) (Auto) 4.8, Eosinophils (%) (Auto) 0.2, Basophils (%) (Auto) 0.1, Neutrophils # (Auto) 10.1 H, Lymphocytes # (Auto) 1.9, Monocytes # (Auto) 0.6, Eosinophils # (Auto) 0.0, Basophils # (Auto) 0.0 Vital Signs Date Time Temp Pulse Resp B/P (MAP) Pulse Ox O2 Delivery O2 Flow Rate FiO2 09/28/18 14:45 18 09/28/18 14:00 96.7 77 161/88 (112) 95 09/28/18 06:09 2.0 09/26/18 22:00 Room Air I&O- Last 24 Hours up to 6 AM 09/28/18 06:00 Intake Total 1310 ml Output Total 2200 ml Balance -890 ml SAM TRAN MD Sep 28, 2018 15:35
[2018-09-28] MEDS: WARFARIN SOD 3 MG TAB PO SCH (17:43)
[2018-09-28] MEDS: TEMAZEPAM 15 MG CAP PO SCH (20:58)
[2018-09-28 21:00] VITALS: O2SAT 100
[2018-09-28 22:00] VITALS: BP 145/72
[2018-09-29] MEDS: SLF 3 ML SYR IV SCH ×3 (05:12→20:18)
[2018-09-29] MEDS: oxyCODONE 5MG TAB PO PRN ×3 (05:12→20:25)
[2018-09-29 06:00] VITALS: BP 155/84
[2018-09-29 06:59] LABS: BASO % 0.2 % (0.0-1.0); EOS # 0.1 10^3/uL (0.0-0.50); EOS % 0.4 % (0.0-3.0); HEMATOCRIT 38.4 % (42.0-52.0); HEMOGLOBIN 11.5 g/dl (13.5-17.5); LYMPH % 16.7 % (24.0-44.0); MEAN CORPUSCULAR HEMOGLOBIN 25.7 pg (27.0-33.0); MEAN CORPUSCULAR HGB CONC 29.9 g/dl (32.0-36.5); MEAN CORPUSCULAR VOLUME 85.7 fl (80.0-96.0); MONO # 0.6 10^3/uL (0.0-0.8); MONO % 5.2 % (0.0-5.0); NEUTROPHILS # 9.4 10^3/uL (1.8-7.7); NEUTROPHILS % 76.6 % (36.0-66.0); PLATELET COUNT, AUTOMATED 241 10^3/uL (150-450); RED BLOOD COUNT 4.48 10^6/uL (4.30-6.10); WHITE BLOOD COUNT 12.2 10^3/uL (4.0-10.0)
[2018-09-29 07:11] LABS: INR 2.15; PROTHROMBIN TIME 24.4 SECONDS (12.1-14.4)
[2018-09-29 07:20] LABS: BLOOD UREA NITROGEN 27 MG/DL (7-18); C REACTIVE PROTEIN QUANTITATIV 5.17 MG/DL (0.00-0.30); CALCIUM LEVEL 8.8 MG/DL (8.8-10.2); CARBON DIOXIDE LEVEL 29 MEQ/L (21-32); CHLORIDE LEVEL 108 MEQ/L (98-107); CREATININE FOR GFR 0.85 MG/DL (0.70-1.30); GLOMERULAR FILTRATION RATE > 60.0 (>49); GLUCOSE, FASTING 235 MG/DL (70-100); MAGNESIUM LEVEL 2.2 MG/DL (1.8-2.4); POTASSIUM SERUM 4.5 MEQ/L (3.5-5.1); SODIUM LEVEL 139 MEQ/L (136-145)
[2018-09-29] MEDS: HumaLOG INSULIN (NovoLOG) PER UNIT SC SCH ×4 (08:51→20:24)
[2018-09-29] MEDS: LEVEMIR (INSULIN DETEMIR) 1 UNITS/0.01ML SC SCH ×2 (08:52→20:24)
[2018-09-29] MEDS: POTASSIUM CHLORIDE 10 MEQ SR TABLET PO SCH (08:52)
[2018-09-29] MEDS: FEBUXOSTAT 40 MG TABLET (ULORIC) PO SCH (08:52)
[2018-09-29] MEDS: AUGMENTIN 875 MG TAB PO SCH ×2 (08:53→20:24)
[2018-09-29] MEDS: predniSONE 10 MG TAB PO SCH ×2 (08:53→20:24)
[2018-09-29] MEDS: LOSARTAN 25 MG TAB PO SCH (08:53)
[2018-09-29] MEDS: ASPIRIN 81 MG CHEW TABLET PO SCH (08:53)
[2018-09-29] MEDS: SERTRALINE HCL 50 MG TAB PO SCH (08:53)
[2018-09-29] MEDS: ATORVASTATIN 20 MG TAB PO SCH (08:53)
[2018-09-29] MEDS: GABAPENTIN 300 MG CAP PO SCH ×2 (08:53→20:25)
[2018-09-29] MEDS: TORSEMIDE 20 MG TAB PO SCH (08:54)
[2018-09-29] MEDS: ACETAMINOPHEN 650MG ER TAB (TYLENOL ARTHRITIS) PO PRN ×2 (10:06→18:52)
[2018-09-29 10:18] VITALS: O2SAT 95
--- NOTE | 2018-09-29 11:00 | IPNPDOC ---
Text Note Date of Service The patient was seen on 09/29/18. NOTE Subjective: Patient is a 63-year-old male with a PMHx of CAD s/p CABG, Systolic CHF 2/2 ischemic cardiomyopathy, Hx Bioprosthetic AVR, A. fib (on Coumadin), Hx of Dual chamber PM, HTN, DLP, DM2, DAVID on CPAP, CKD3, Gout (on Prednisone), OA, BPH, Hx of Nephrolithiasis, Morbid obesity, who presented to the ER with complaints of LE swelling and knee pain. Patient was admitted to the hospitalist service for further evaluation, treatment for his suspected congestive heart failure exacerbation. Patient was seen and examined at the bedside. Patient reports that he still experiencing some knee pain. Has been working with physical therapy and has been progressing. He reports his left elbow is still slightly tender. Denies any chest pain, shortness of breath or palpitations. Objective: Vitals (See below) General: Lying in bed, no acute distress, comfortable, AAOx3 HEENT: NC, AT CVS: RRR, +S1S2 Lungs: Air entry is fair bilaterally. There are very faint crackles right lung base. There does not appear to be any wheezing or rhonchi Abdomen: Abdomen is soft without distention or tenderness Extremities: Again, there still remains 2+ pitting edema bilaterally, - Calf tenderness Assessment and plan: Bilateral LE swelling - likely 2/2 Decompensated Diastolic and Systolic CHF (EF: 30%) - Patient has reported subjective improvement in lower extremity edema; has not been requiring any supplemental oxygen - BNP was noted to be elevated - ECHO 09/24: EF: 30-35%, Bioprosthetic AV, high CVP, severe biatrial enlargement, - CXR 09/22: Exam limitations and chronic changes with other findings as descri bed above. - Duplex US 09/22: There is no ultrasonographic evidence of deep venous thrombosis involving any of the visualized deep venous structures of the right and left thigh, as described above. - c/w strict ins/outs - continues to remain negative fluid balanced, daily weights, will limit fluid intake to 1700 daily - c/w Torsemide 60 daily - has had adequate diuresis with this Bilateral knee pain (L > R) - likely 2/2 gout flare / OA - XR Knee 09/22: Degenerative and osteoarthritic changes. Vascular calcification. Evidence of joint effusion on the left as a new finding. - XR Ankle 09/22: Osteoarthritic changes. Advanced vascular calcification. Diffuse swelling. Heel spurs. No acute bony abnormality. - Patient has had his L knee joint aspirated and corticosteroids injected (09/26) with Orthopedic surgery - c/w Prednisone at home dose - c/w Oxycodone; will add Tylenol for arthritic pain - Orthopedic surgery on consult; Dr. 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 Olecranon soft tissue swelling and dystrophic soft-tissue calcification. Vascular calcification. Mild proximal ulnar spurring. - c/w antibiotics from outpatient; Augmentin - Today I have cleaned the area and removed additional drainage; new dressing applied; c/w Wound care dressing changes Leukocytosis - possibly 2/2 corticosteroids - Patient has been on elevated doses of corticosteroids orally and has received a corticosteroid joint injection - Review systems is negative for any additional sources of infection - Will continue with current antibiotic - CRP improving DAVID on CPAP - non-compliant with therapy Hx of A. fib - Currently not on any rate / rhythm control mediations - Patient has a dual chamber PM - INR therapeutic - c/w Coumadin DM2 with hyperglycemia - c/w ISS and Levemir with adjusted dose Right Second Finger Joint Infection - - Patient has had intervention at [facility] - Has been on Augmentin as an outpatient; was switched to Unasyn when he was admitted - c/w Augmentin currently - Outpatient follow-up with orthopedic surgery CAD s/p CABG - c/w ASA, Atorvastatin, Losartan s/p Hematuria - possibly 2/2 Staghorn Stone - Extraction has been scheduled for 10/03/2018 in [place] Peripheral neuropathy / Hx of Lumbar Spinal stenosis - c/w Gabapentin Depression - c/w Sertraline BPH - Currently not on medications Morbid obesity - Complicating medical care Gout - likely with acute flare - c/w Prednisone and Febuxostat CKD3 - Cr appears to be at baseline DVT prophylaxis - c/w full anticoagulation with Coumadin VS,Fishbone, I+O VS, Fishbone, I+O Laboratory Tests 09/29/18 06:12 Red Blood Count 4.48, Mean Corpuscular Volume 85.7, Mean Corpuscular Hemoglobin 25.7 L, Mean Corpuscular Hemoglobin Concent 29.9 L, Red Cell Distribution Width 17.2 H, Neutrophils (%) (Auto) 76.6 H, Lymphocytes (%) (Auto) 16.7 L, Monocytes (%) (Auto) 5.2 H, Eosinophils (%) (Auto) 0.4, Basophils (%) (Auto) 0.2, Neutrophils # (Auto) 9.4 H, Lymphocytes # (Auto) 2.0, Monocytes # (Auto) 0.6, Eosinophils # (Auto) 0.1, Basophils # (Auto) 0.0, Calcium Level 8.8 Vital Signs Date Time Temp Pulse Resp B/P (MAP) Pulse Ox O2 Delivery O2 Flow Rate FiO2 09/29/18 10:18 95 09/29/18 09:23 18 09/29/18 08:53 155/84 09/29/18 06:00 97.2 89 2.0 09/28/18 21:00 Nasal Cannula I&O- Last 24 Hours up to 6 AM 09/29/18 06:00 Intake Total 1170 ml Output Total 2400 ml Balance -1230 ml SAM TRAN MD Sep 29, 2018 11:00
[2018-09-29 14:00] VITALS: BP 143/64
[2018-09-29] MEDS: WARFARIN SOD 3 MG TAB PO SCH (17:36)
[2018-09-29] MEDS: TEMAZEPAM 15 MG CAP PO SCH (20:24)
[2018-09-29 21:00] VITALS: O2SAT 100
[2018-09-29 22:00] VITALS: BP 126/58
[2018-09-30] MEDS: SLF 3 ML SYR IV SCH ×3 (03:42→21:25)
[2018-09-30] MEDS: oxyCODONE 5MG TAB PO PRN ×4 (03:43→20:19)
[2018-09-30 05:48] LABS: BASO % 0.2 % (0.0-1.0); EOS % 0.3 % (0.0-3.0); HEMATOCRIT 40.2 % (42.0-52.0); LYMPH # 1.9 10^3/uL (1.5-4.5); LYMPH % 17.3 % (24.0-44.0); MEAN CORPUSCULAR HEMOGLOBIN 25.3 pg (27.0-33.0); MEAN CORPUSCULAR HGB CONC 29.9 g/dl (32.0-36.5); MEAN CORPUSCULAR VOLUME 84.8 fl (80.0-96.0); MONO # 0.5 10^3/uL (0.0-0.8); NEUTROPHILS # 8.3 10^3/uL (1.8-7.7); NEUTROPHILS % 76.4 % (36.0-66.0); PLATELET COUNT, AUTOMATED 253 10^3/uL (150-450); RED BLOOD COUNT 4.74 10^6/uL (4.30-6.10); WHITE BLOOD COUNT 10.8 10^3/uL (4.0-10.0)
[2018-09-30 06:00] VITALS: BP 149/62
[2018-09-30 06:08] LABS: INR 2.19; PROTHROMBIN TIME 24.8 SECONDS (12.1-14.4)
[2018-09-30 06:15] LABS: BLOOD UREA NITROGEN 32 MG/DL (7-18); C REACTIVE PROTEIN QUANTITATIV 6.11 MG/DL (0.00-0.30); CALCIUM LEVEL 8.7 MG/DL (8.8-10.2); CARBON DIOXIDE LEVEL 28 MEQ/L (21-32); CHLORIDE LEVEL 106 MEQ/L (98-107); CREATININE FOR GFR 0.86 MG/DL (0.70-1.30); GLOMERULAR FILTRATION RATE > 60.0 (>49); GLUCOSE, FASTING 279 MG/DL (70-100); MAGNESIUM LEVEL 2.1 MG/DL (1.8-2.4); POTASSIUM SERUM 4.5 MEQ/L (3.5-5.1); SODIUM LEVEL 138 MEQ/L (136-145)
[2018-09-30] MEDS: HumaLOG INSULIN (NovoLOG) PER UNIT SC SCH ×4 (08:16→21:25)
[2018-09-30] MEDS: LEVEMIR (INSULIN DETEMIR) 1 UNITS/0.01ML SC SCH ×2 (08:16→21:25)
[2018-09-30] MEDS: ATORVASTATIN 20 MG TAB PO SCH (08:16)
[2018-09-30] MEDS: ASPIRIN 81 MG CHEW TABLET PO SCH (08:16)
[2018-09-30] MEDS: AUGMENTIN 875 MG TAB PO SCH ×2 (08:16→21:24)
[2018-09-30] MEDS: POTASSIUM CHLORIDE 10 MEQ SR TABLET PO SCH (08:17)
[2018-09-30] MEDS: SERTRALINE HCL 50 MG TAB PO SCH (08:17)
[2018-09-30] MEDS: TORSEMIDE 20 MG TAB PO SCH (08:17)
[2018-09-30] MEDS: GABAPENTIN 300 MG CAP PO SCH ×2 (08:17→21:00)
[2018-09-30] MEDS: ACETAMINOPHEN 650MG ER TAB (TYLENOL ARTHRITIS) PO PRN ×2 (08:17→17:32)
[2018-09-30] MEDS: FEBUXOSTAT 40 MG TABLET (ULORIC) PO SCH (08:17)
[2018-09-30] MEDS: predniSONE 10 MG TAB PO SCH ×2 (08:17→21:24)
[2018-09-30] MEDS: LOSARTAN 25 MG TAB PO SCH (08:17)
[2018-09-30 09:30] VITALS: O2SAT 98
--- NOTE | 2018-09-30 12:13 | IPNPDOC ---
Text Note Date of Service The patient was seen on 09/30/18. NOTE Subjective: Patient is a 63-year-old male with a PMHx of CAD s/p CABG, Systolic CHF 2/2 ischemic cardiomyopathy, Hx Bioprosthetic AVR, A. fib (on Coumadin), Hx of Dual chamber PM, HTN, DLP, DM2, DAVID on CPAP, CKD3, Gout (on Prednisone), OA, BPH, Hx of Nephrolithiasis, Morbid obesity, who presented to the ER with complaints of LE swelling and knee pain. Patient was admitted to the hospitalist service for further evaluation, treatment for his suspected congestive heart failure exacerbation. Patient was seen and examined at the bedside. Patient reports that his left elbow is doing slightly better. Still reports bilateral knee pain, but is slightly better. Denies any chest pain churns rather palpitations. Denies nausea, vomiting, abdominal pain, constipation, diarrhea or discomfort with urination. Does report slight improvement in his lower extremities swelling. Objective: Vitals (See below) General: Lying in bed, no acute distress, comfortable, AAOx3 HEENT: NC, AT CVS: RRR, +S1S2 Lungs: Air entry appears to be fair bilaterally without evidence of rhonchi, rales or wheezing Abdomen: Abdomen is soft without distention or tenderness Extremities: No evidence of LE edema, - Calf tenderness Assessment and plan: Bilateral LE swelling - likely 2/2 Decompensated Diastolic and Systolic CHF (EF: 30%) - Patient has reported subjective improvement in lower extremity edema; has not been requiring any supplemental oxygen - BNP was noted to be elevated - ECHO 09/24: EF: 30-35%, Bioprosthetic AV, high CVP, severe biatrial enlargement, - CXR 09/22: Exam limitations and chronic changes with other findings as described above. - Duplex US 09/22: There is no ultrasonographic evidence of deep venous thrombosis involving any of the visualized deep venous structures of the right and left thigh, as described above. - c/w Strict ins/outs, Daily weights - c/w Torsemide 60 daily - Will continue with current treatment plan as patient has remained negative fluid balance and continues to produce adequate amounts of urine Bilateral knee pain (L > R) - likely 2/2 gout flare / OA - XR Knee 09/22: Degenerative and osteoarthritic changes. Vascular calcification. Evidence of joint effusion on the left as a new finding. - XR Ankle 09/22: Osteoarthritic changes. Advanced vascular calcification. Diff use swelling. Heel spurs. No acute bony abnormality. - Patient has had his L knee joint aspirated and corticosteroids injected (09/26) with Orthopedic surgery - c/w Prednisone at home dose - c/w Oxycodone and Tylenol for arthritic pain - Orthopedic surgery on consult; Dr. 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 Olecranon soft tissue swelling and dystrophic soft-tissue calcification. Vascular calcification. Mild proximal ulnar spurring. - c/w antibiotics from outpatient; Augmentin - Again cleared Left elbow drainage and performed dressing change at bedside Leukocytosis - possibly 2/2 corticosteroids - Improving - Patient has been on elevated doses of corticosteroids orally and has received a corticosteroid joint injection - Review systems is negative for any additional sources of infection - Will continue with current antibiotic - CRP stable DAVID on CPAP - non-compliant with therapy Hx of A. fib - Currently not on any rate / rhythm control mediations - Patient has a dual chamber PM - INR therapeutic - c/w Coumadin DM2 with hyperglycemia - c/w ISS and Levemir with adjusted dose Right Second Finger Joint Infection - - Patient has had intervention at [facility] - Has been on Augmentin as an outpatient; was switched to Unasyn when he was admitted - c/w Augmentin currently - Outpatient follow-up with orthopedic surgery CAD s/p CABG - c/w ASA, Atorvastatin, Losartan s/p Hematuria - possibly 2/2 Staghorn Stone - Extraction has been scheduled for 10/03/2018 in [place] - Will get further details about procedure scheduled in [place] - Will discuss with Urology about performing procedure at [facility] Peripheral neuropathy / Hx of Lumbar Spinal stenosis - c/w Gabapentin Depression - c/w Sertraline BPH - Currently not on medications Morbid obesity - Complicating medical care Gout - likely with acute flare - c/w Prednisone and Febuxostat CKD3 - Cr appears to be at baseline DVT prophylaxis - c/w full anticoagulation with Coumadin Disposition: - Will discuss with Urology about possible procedure at [facility] instead of [place] Blake FARMER I+O VS, Chavezgene, I+O Laboratory Tests 09/30/18 05:25 Red Blood Count 4.74, Mean Corpuscular Volume 84.8, Mean Corpuscular Hemoglobin 25.3 L, Mean Corpuscular Hemoglobin Concent 29.9 L, Red Cell Distribution Width 17.2 H, Neutrophils (%) (Auto) 76.4 H, Lymphocytes (%) (Auto) 17.3 L, Monocytes (%) (Auto) 5.0, Eosinophils (%) (Auto) 0.3, Basophils (%) (Auto) 0.2, Neutrophils # (Auto) 8.3 H, Lymphocytes # (Auto) 1.9, Monocytes # (Auto) 0.5, Eosinophils # (Auto) 0.0, Basophils # (Auto) 0.0, Calcium Level 8.7 L Vital Signs Date Time Temp Pulse Resp B/P (MAP) Pulse Ox O2 Delivery O2 Flow Rate FiO2 09/30/18 11:48 18 09/30/18 09:30 98 Room Air 09/30/18 08:17 149/62 09/30/18 06:00 97.6 87 09/30/18 04:13 2.0 I&O- Last 24 Hours up to 6 AM 09/30/18 06:00 Intake Total 1590 ml Output Total 3325 ml Balance -1735 ml SAM TRAN MD Sep 30, 2018 12:13
[2018-09-30 14:00] VITALS: BP 177/86
[2018-09-30] MEDS: WARFARIN SOD 3 MG TAB PO SCH (17:33)
[2018-09-30] MEDS: TEMAZEPAM 15 MG CAP PO SCH (21:24)
[2018-09-30 22:00] VITALS: BP 128/74
[2018-10-01] MEDS: oxyCODONE 5MG TAB PO PRN ×4 (00:25→20:15)
[2018-10-01] MEDS: SLF 3 ML SYR IV SCH ×3 (05:40→20:16)
[2018-10-01] MEDS: ACETAMINOPHEN 650MG ER TAB (TYLENOL ARTHRITIS) PO PRN ×2 (05:40→15:50)
[2018-10-01 06:00] VITALS: BP 132/88
[2018-10-01 06:55] LABS: BASO % 0.3 % (0.0-1.0); EOS # 0.1 10^3/uL (0.0-0.50); EOS % 0.5 % (0.0-3.0); HEMATOCRIT 39.9 % (42.0-52.0); HEMOGLOBIN 12.4 g/dl (13.5-17.5); LYMPH # 2.4 10^3/uL (1.5-4.5); LYMPH % 21.7 % (24.0-44.0); MEAN CORPUSCULAR HEMOGLOBIN 26.3 pg (27.0-33.0); MEAN CORPUSCULAR HGB CONC 31.1 g/dl (32.0-36.5); MEAN CORPUSCULAR VOLUME 84.7 fl (80.0-96.0); MONO # 0.6 10^3/uL (0.0-0.8); MONO % 5.8 % (0.0-5.0); NEUTROPHILS # 7.7 10^3/uL (1.8-7.7); NEUTROPHILS % 70.6 % (36.0-66.0); PLATELET COUNT, AUTOMATED 253 10^3/uL (150-450); RED BLOOD COUNT 4.71 10^6/uL (4.30-6.10)
[2018-10-01 07:00] LABS: INR 2.43; PROTHROMBIN TIME 26.9 SECONDS (12.1-14.4)
[2018-10-01 07:18] LABS: BLOOD UREA NITROGEN 31 MG/DL (7-18); C REACTIVE PROTEIN QUANTITATIV 6.34 MG/DL (0.00-0.30); CALCIUM LEVEL 8.6 MG/DL (8.8-10.2); CARBON DIOXIDE LEVEL 27 MEQ/L (21-32); CHLORIDE LEVEL 104 MEQ/L (98-107); CREATININE FOR GFR 0.83 MG/DL (0.70-1.30); GLOMERULAR FILTRATION RATE > 60.0 (>49); GLUCOSE, FASTING 285 MG/DL (70-100); MAGNESIUM LEVEL 2.1 MG/DL (1.8-2.4); POTASSIUM SERUM 4.4 MEQ/L (3.5-5.1); SODIUM LEVEL 136 MEQ/L (136-145)
[2018-10-01] MEDS: HumaLOG INSULIN (NovoLOG) PER UNIT SC SCH ×4 (08:57→20:18)
[2018-10-01] MEDS: LEVEMIR (INSULIN DETEMIR) 1 UNITS/0.01ML SC SCH ×2 (08:57→20:16)
[2018-10-01] MEDS: ATORVASTATIN 20 MG TAB PO SCH (09:00)
[2018-10-01] MEDS: GABAPENTIN 300 MG CAP PO SCH ×2 (09:00→20:15)
[2018-10-01] MEDS: ASPIRIN 81 MG CHEW TABLET PO SCH (09:00)
[2018-10-01] MEDS: FEBUXOSTAT 40 MG TABLET (ULORIC) PO SCH (09:02)
[2018-10-01] MEDS: POTASSIUM CHLORIDE 10 MEQ SR TABLET PO SCH (09:03)
[2018-10-01] MEDS: TORSEMIDE 20 MG TAB PO SCH (09:03)
[2018-10-01] MEDS: AUGMENTIN 875 MG TAB PO SCH ×2 (09:04→20:14)
[2018-10-01] MEDS: LOSARTAN 25 MG TAB PO SCH (09:04)
[2018-10-01] MEDS: SERTRALINE HCL 50 MG TAB PO SCH (09:04)
[2018-10-01] MEDS: predniSONE 10 MG TAB PO SCH ×2 (09:05→20:15)
--- NOTE | 2018-10-01 11:52 | IPNPDOC ---
Text Note Date of Service The patient was seen on 10/01/18. NOTE Subjective: Patient is a 63-year-old male with a PMHx of CAD s/p CABG, Systolic CHF 2/2 ischemic cardiomyopathy, Hx Bioprosthetic AVR, A. fib (on Coumadin), Hx of Dual chamber PM, HTN, DLP, DM2, DAVID on CPAP, CKD3, Gout (on Prednisone), OA, BPH, Hx of Nephrolithiasis, Morbid obesity, who presented to the ER with complaints of LE swelling and knee pain. Patient was admitted to the hospitalist service for further evaluation, treatment for his suspected congestive heart failure exacerbation. Patient was seen and examined at the bedside. Currently, patient reports that he still expressing severe knee pain on both sides. Denies any elbow pain. Denies chest pain, short of breath or palpitations. Reports that his leg swelling is doing better. Denies nausea, vomiting, abdominal pain, constipation, diarrhea, or urinary discomfort. Objective: Vitals (See below) General: Lying in bed, no acute distress, comfortable, AAOx3 HEENT: NC, AT CVS: RRR, +S1S2 Lungs: Air entry is fair bilaterally without auscultated evidence of rhonchi, rales or wheezing Abdomen: Soft without distention or tenderness Extremities: 1-2+ pitting edema bilaterally, - Calf tenderness Assessment and plan: Bilateral LE swelling - likely 2/2 Decompensated Diastolic and Systolic CHF (EF: 30%) - Clinically patient's lower sternum. The swelling has improved significantly - BNP was noted to be elevated - ECHO 09/24: EF: 30-35%, Bioprosthetic AV, high CVP, severe biatrial enlargement, - CXR 09/22: Exam limitations and chronic changes with other findings as described above. - Duplex US 09/22: There is no ultrasonographic evidence of deep venous thrombosis involving any of the visualized deep venous structures of the right and left thigh, as described above. - c/w Strict ins/outs - has been approximately 9 L negative, Daily weights - c/w Torsemide 60 daily Bilateral knee pain (L > R) - likely 2/2 gout flare / OA - XR Knee 09/22: Degenerative and osteoarthritic changes. Vascular calcification. Evidence of joint effusion on the left as a new finding. - XR Ankle 09/22: Osteoarthritic changes. Advanced vascular calcification. Diffuse swelling. Heel spurs. No acute bony abnormality. - Patient has had his L knee joint aspirated and corticosteroids injected (09/26) with Orthopedic surgery - c/w Prednisone at home dose - c/w Oxycodone and Tylenol for arthritic pain - Orthopedic surgery on consult; Dr. 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 Olecranon soft tissue swelling and dystrophic soft-tissue calcification. Vascular calcification. Mild proximal ulnar spurring. - c/w antibiotics from outpatient; Augmentin - c/w Daily dressing changes Leukocytosis - possibly 2/2 corticosteroids - Improving - Patient has been on elevated doses of corticosteroids orally and has received a corticosteroid joint injection - Review systems is negative for any additional sources of infection - Will continue with current antibiotic - CRP stable - will continue to trend DAVID on CPAP - non-compliant with therapy Hx of A. fib - Currently not on any rate / rhythm control mediations - Patient has a dual chamber PM - INR remains therapeutic - c/w Coumadin DM2 with hyperglycemia - c/w ISS and Levemir with adjusted dose Right Second Finger Joint Infection - - Patient has had intervention at [facility] - Has been on Augmentin as an outpatient; was switched to Unasyn when he was admitted - c/w Augmentin currently - Outpatient follow-up with orthopedic surgery CAD s/p CABG - c/w ASA, Atorvastatin, Losartan s/p Hematuria - possibly 2/2 Staghorn Stone - Extraction has been scheduled for 10/03/2018 in [place] - Discussed with urology office in [place]; patient was tentatively scheduled for a percutaneous nephrostomy with resection of staggering calculus - Discussed with in house Urology about performing procedure at [facility]; currently we are not capable of performing percutaneous nephrostomies - Will have outpatient procedure rescheduled Peripheral neuropathy / Hx of Lumbar Spinal stenosis - c/w Gabapentin Depression - c/w Sertraline BPH - Currently not on medications Morbid obesity - Complicating medical care Gout - likely with acute flare - c/w Prednisone and Febuxostat CKD3 - Cr appears to be at baseline DVT prophylaxis - c/w full anticoagulation with Coumadin Disposition: - Pain management evaluation - Continue with diuresis - Continue with physical therapy / occupational therapy VS,Blake, I+O VS, Blake, I+O Laboratory Tests 10/01/18 06:27 Red Blood Count 4.71, Mean Corpuscular Volume 84.7, Mean Corpuscular Hemoglobin 26.3 L, Mean Corpuscular Hemoglobin Concent 31.1 L, Red Cell Distribution Width 17.3 H, Neutrophils (%) (Auto) 70.6 H, Lymphocytes (%) (Auto) 21.7 L, Monocytes (%) (Auto) 5.8 H, Eosinophils (%) (Auto) 0.5, Basophils (%) (Auto) 0.3, Neutrophils # (Auto) 7.7, Lymphocytes # (Auto) 2.4, Monocytes # (Auto) 0.6, Eosinophils # (Auto) 0.1, Basophils # (Auto) 0.0, Calcium Level 8.6 L Vital Signs Date Time Temp Pulse Resp B/P (MAP) Pulse Ox O2 Delivery O2 Flow Rate FiO2 10/01/18 11:12 16 10/01/18 09:04 132/88 10/01/18 06:00 97.0 84 98 2.0 09/30/18 09:30 Room Air I&O- Last 24 Hours up to 6 AM 10/01/18 06:00 Intake Total 900 ml Output Total 3075 ml Balance -2175 ml SAM TRAN MD Oct 01, 2018 11:52
[2018-10-01] MEDS: WARFARIN SOD 3 MG TAB PO SCH (17:48)
--- NOTE | 2018-10-01 17:56 | CR ---
DATE OF CONSULTATION: 10/01/2018 CHIEF COMPLAINT: Bilateral knee pain, left greater than right. HISTORY OF PRESENT ILLNESS: Moi is a 63-year-old gentleman who was admitted on 09/22/2018 for lower extremity edema and bilateral knee pain. He has multiple medical comorbidities, complicating choices of pain control, to include systolic and diastolic congestive heart failure with ejection fracture of 30, morbid obesity, noncompliant with continuous positive airway pressure (CPAP) with a history of obstructive sleep apnea and stage II chronic kidney disease. Currently using oxycodone 5 mg strength, which does help but only for short periods of time. He is trying to attend to his physical therapy needs to rehab his situation. Today, we talked at length about different medications and potential side effects. We also discussed alternatives to medicines to include CBD oil and treatments available in the community. His options are limited. Rating pain level as a 5/10 VAS over left knee. PAST MEDICAL HISTORY: As stated in history of the present illness. SURGICAL HISTORY: Coronary artery bypass graft times four vessels, pacemaker defibrillator - [place]' 2014, bilateral cataracts 2014, valve replacement November 2015. ALLERGIES: No known drug allergies. FAMILY HISTORY: Father with congestive heart failure (CHF). Mother of cancer age 65. Sister age 12. Older brother with kidney stones. Five brothers, one sister, one son and one daughter. SOCIAL HISTORY: The patient lives alone. Denies cigarette history. He denies use of alcohol. Denies illicit drug use. REVIEW OF SYSTEMS: 10-point review of systems negative except for as stated in the HPI. PHYSICAL EXAMINATION: Awake, alert, pleasant. Vital signs: Temperature 97.7, pulse 97, respirations 18, oxygen saturation (O2 sat) is 94% on room air. Cardiac: S1, S2 normal rate and rhythm. Respiratory: Lung sounds diminished in the bases. Respirations easy, nonlabored. Inspection of the lower extremities: Warm to touch bilateral. Mild swelling noted around the knees bilaterally. No redness. Tenderness with palpation over the knees, left greater than right. ASSESSMENT: Chronic knee pain with the multiple comorbidities. PLAN: The patient may benefit from a trial of Nucynta 75 mg one every 4-6 hours as needed for pain. I would discontinue the oxycodone. Recommended that work with nursing staff so that the patient can take this or have it offered to him 1/2 hour before he is expected to perform physical therapy maneuvers. The patient is going to consider CBD oil as an outpatient. There are also topical medications to be considered. Insurances are not covering topicals very well these days, but they do make topicals over the counter to include ones containing CBD oils. He can discuss options with his primary care provider. Thank you for allowing us to participate in the care of your patient. If you have any questions or concerns please do not hesitate to contact me.
[2018-10-01] MEDS: TEMAZEPAM 15 MG CAP PO SCH (20:15)
[2018-10-01 21:00] VITALS: O2SAT 98
[2018-10-01 22:00] VITALS: BP 111/47
[2018-10-02] MEDS: oxyCODONE 5MG TAB PO PRN ×2 (00:54→05:58)
[2018-10-02 06:00] VITALS: BP 134/60
[2018-10-02] MEDS: SLF 3 ML SYR IV SCH ×4 (06:00→22:07)
[2018-10-02] MEDS ORDERED: TAPENTADOL 50 MG TABLET (NUCYNTA) PO PRN (08:15)
[2018-10-02 08:28] LABS: HEMATOCRIT 40.3 % (42.0-52.0); HEMOGLOBIN 12.5 g/dl (13.5-17.5); MEAN CORPUSCULAR VOLUME 84.8 fl (80.0-96.0); RED BLOOD COUNT 4.75 10^6/uL (4.30-6.10); WHITE BLOOD COUNT 11.1 10^3/uL (4.0-10.0)
[2018-10-02 08:29] LABS: BASO % 0.3 % (0.0-1.0); EOS # 0.1 10^3/uL (0.0-0.50); EOS % 0.6 % (0.0-3.0); LYMPH # 2.4 10^3/uL (1.5-4.5); LYMPH % 21.9 % (24.0-44.0); MEAN CORPUSCULAR HEMOGLOBIN 26.3 pg (27.0-33.0); MONO # 0.6 10^3/uL (0.0-0.8); MONO % 5.4 % (0.0-5.0); NEUTROPHILS # 7.8 10^3/uL (1.8-7.7); PLATELET COUNT, AUTOMATED 251 10^3/uL (150-450)
[2018-10-02] MEDS: TORSEMIDE 20 MG TAB PO SCH (08:34)
[2018-10-02] MEDS: ATORVASTATIN 20 MG TAB PO SCH (08:34)
[2018-10-02] MEDS: FEBUXOSTAT 40 MG TABLET (ULORIC) PO SCH (08:34)
[2018-10-02] MEDS: AUGMENTIN 875 MG TAB PO SCH ×2 (08:34→20:53)
[2018-10-02] MEDS: ACETAMINOPHEN 650MG ER TAB (TYLENOL ARTHRITIS) PO PRN ×2 (08:34→20:54)
[2018-10-02] MEDS: predniSONE 10 MG TAB PO SCH ×2 (08:34→20:53)
[2018-10-02] MEDS: SERTRALINE HCL 50 MG TAB PO SCH (08:34)
[2018-10-02] MEDS: ASPIRIN 81 MG CHEW TABLET PO SCH (08:34)
[2018-10-02] MEDS: LOSARTAN 25 MG TAB PO SCH (08:35)
[2018-10-02] MEDS: GABAPENTIN 300 MG CAP PO SCH ×2 (08:35→20:53)
[2018-10-02] MEDS: POTASSIUM CHLORIDE 10 MEQ SR TABLET PO SCH (08:35)
[2018-10-02] MEDS: HumaLOG INSULIN (NovoLOG) PER UNIT SC SCH ×4 (08:36→21:00)
[2018-10-02] MEDS: LEVEMIR (INSULIN DETEMIR) 1 UNITS/0.01ML SC SCH ×2 (08:36→20:54)
[2018-10-02 08:38] LABS: INR 2.88; PROTHROMBIN TIME 30.8 SECONDS (12.1-14.4)
[2018-10-02 08:46] LABS: BLOOD UREA NITROGEN 29 MG/DL (7-18); C REACTIVE PROTEIN QUANTITATIV 6.59 MG/DL (0.00-0.30); CALCIUM LEVEL 8.5 MG/DL (8.8-10.2); CARBON DIOXIDE LEVEL 28 MEQ/L (21-32); CHLORIDE LEVEL 105 MEQ/L (98-107); CREATININE FOR GFR 0.82 MG/DL (0.70-1.30); GLOMERULAR FILTRATION RATE > 60.0 (>49); GLUCOSE, FASTING 244 MG/DL (70-100); POTASSIUM SERUM 4.1 MEQ/L (3.5-5.1); SODIUM LEVEL 138 MEQ/L (136-145)
[2018-10-02] MEDS ORDERED: traMADol 50 MG TAB PO PRN ×2 (09:00→14:30)
--- NOTE | 2018-10-02 12:28 | IPNPDOC ---
Text Note Date of Service The patient was seen on 10/02/18. NOTE Subjective: Patient is a 63-year-old male with a PMHx of CAD s/p CABG, Systolic CHF 2/2 ischemic cardiomyopathy, Hx Bioprosthetic AVR, A. fib (on Coumadin), Hx of Dual chamber PM, HTN, DLP, DM2, DAVID on CPAP, CKD3, Gout (on Prednisone), OA, BPH, Hx of Nephrolithiasis, Morbid obesity, who presented to the ER with complaints of LE swelling and knee pain. Patient was admitted to the hospitalist service for further evaluation, treatment for his suspected congestive heart failure exacerbation. Patient was seen and examined at the bedside. Patient reports that he has been working with physical therapy, although he still expresses significant pain. Pain management has seen yesterday and have given recommendations, although we do not have those medications available on our formulary. Patient denies chest pain, short of breath or palpitations. Denies nausea, vomiting. Has had regular bowel movements. Denies any urinary discomfort. Reports his lower extremity swelling has been improving. Objective: Vitals (See below) General: Lying in bed, no acute distress, comfortable, AAOx3 HEENT: NC, AT CVS: RRR, +S1S2 Lungs: Fair bilaterally, no evidence of rhonchi, wheezing or rales on auscultation Abdomen: Soft and remains nondistended, nontender Extremities: 1-2+ pitting edema bilaterally, - Calf tenderness Assessment and plan: Bilateral LE swelling - likely 2/2 Decompensated Diastolic and Systolic CHF (EF: 30%) - Patient continues to have improvement in his lower extremity swelling - BNP was noted to be elevated - ECHO 09/24: EF: 30-35%, Bioprosthetic AV, high CVP, severe biatrial enlargement , - CXR 09/22: Exam limitations and chronic changes with other findings as described above. - Duplex US 09/22: There is no ultrasonographic evidence of deep venous thrombosis involving any of the visualized deep venous structures of the right and left thigh, as described above. - c/w Strict ins/outs - has been approximately 10.1 L negative, Daily weights - c/w Torsemide 60 daily Bilateral knee pain (L > R) - likely 2/2 gout flare / OA - XR Knee 09/22: Degenerative and osteoarthritic changes. Vascular calcification. Evidence of joint effusion on the left as a new finding. - XR Ankle 09/22: Osteoarthritic changes. Advanced vascular calcification. Diffuse swelling. Heel spurs. No acute bony abnormality. - Patient has had his L knee joint aspirated and corticosteroids injected (09/26) with Orthopedic surgery - c/w Prednisone at home dose - Orthopedic surgery on consult; Dr. Byrne - c/w Tylenol for arthritic pain; will add tramadol at this time - Pain management has been on consultation; over the recommendations for medications cannot be started as they are not on our formulary Left elbow drainage - likely 2/2 gout tophi - Patient has reported that he has been putting his weight on his elbow - Area appears to be draining white output - L elbow culture 09/24: Staph aureus, Staph Sp Coag Neg - L Elbow XR 09/26: No fracture noted. Olecranon soft tissue swelling and dystrophic soft-tissue calcification. Vascular calcification. Mild proximal ulnar spurring. - c/w antibiotics from outpatient; Augmentin - c/w Daily dressing changes Leukocytosis - possibly 2/2 corticosteroids - Patient has been on elevated doses of corticosteroids orally and has received a corticosteroid joint injection - Review systems is negative for any additional sources of infection - Will continue with current antibiotic - CRP mildly trending up; will continue to follow DAVID on CPAP - non-compliant with therapy Hx of A. fib - Currently not on any rate / rhythm control mediations - Patient has a dual chamber PM - INR remains therapeutic - c/w Coumadin; will reduce dose of Coumadin DM2 with hyperglycemia - c/w ISS and Levemir with adjusted dose Right Second Finger Joint Infection - - Patient has had intervention at [facility] - Has been on Augmentin as an outpatient; was switched to Unasyn when he was admitted - c/w Augmentin currently - Outpatient follow-up with orthopedic surgery CAD s/p CABG - c/w ASA, Atorvastatin, Losartan s/p Hematuria - possibly 2/2 Staghorn Stone - Extraction has been scheduled for 10/03/2018 in [place] - Discussed with urology office in [place]; patient was tentatively scheduled for a percutaneous nephrostomy with resection of staggering calculus - Discussed with in house Urology about performing procedure at [facility]; currently we are not capable of performing percutaneous nephrostomies - Will have outpatient procedure rescheduled Peripheral neuropathy / Hx of Lumbar Spinal stenosis - c/w Gabapentin Depression - c/w Sertraline BPH - Currently not on medications Morbid obesity - Complicating medical care Gout - likely with acute flare - c/w Prednisone and Febuxostat CKD3 - Cr appears to be at baseline DVT prophylaxis - c/w full anticoagulation with Coumadin Disposition: - Pain management evaluation - Continue with diuresis - Continue with physical therapy / occupational therapy VS,Fishbone, I+O VS, Fishbone, I+O Laboratory Tests 10/02/18 07:47 Red Blood Count 4.75, Mean Corpuscular Volume 84.8, Mean Corpuscular Hemoglobin 26.3 L, Mean Corpuscular Hemoglobin Concent 31.0 L, Red Cell Distribution Width 17.0 H, Neutrophils (%) (Auto) 71.0 H, Lymphocytes (%) (Auto) 21.9 L, Monocytes (%) (Auto) 5.4 H, Eosinophils (%) (Auto) 0.6, Basophils (%) (Auto) 0.3, Neutrophils # (Auto) 7.8 H, Lymphocytes # (Auto) 2.4, Monocytes # (Auto) 0.6, Eosinophils # (Auto) 0.1, Basophils # (Auto) 0.0, Calcium Level 8.5 L Vital Signs Date Time Temp Pulse Resp B/P (MAP) Pulse Ox O2 Delivery O2 Flow Rate FiO2 10/02/18 10:28 18 10/02/18 08:35 134/60 10/02/18 06:00 97.3 80 98 10/01/18 21:00 2.0 09/30/18 09:30 Room Air I&O- Last 24 Hours up to 6 AM 10/02/18 06:00 Intake Total 1680 ml Output Total 3175 ml Balance -1495 ml SAM TRAN MD October 02, 2018 12:28
[2018-10-02] MEDS ORDERED: oxyCODONE 5MG TAB PO PRN (13:00)
[2018-10-02 14:00] VITALS: BP 122/52
[2018-10-02] MEDS: WARFARIN SOD 3 MG TAB PO SCH (18:10)
[2018-10-02] MEDS: TEMAZEPAM 15 MG CAP PO SCH (20:53)
[2018-10-02 22:00] VITALS: BP 120/53
[2018-10-02] MEDS ORDERED: oxyCODONE 5MG TAB PO ONE ×2 (22:00→22:15)
[2018-10-03] MEDS: SLF 3 ML SYR IV SCH ×3 (04:48→21:38)
[2018-10-03 06:00] VITALS: BP 130/59
[2018-10-03 06:40] LABS: BASO % 0.3 % (0.0-1.0); EOS # 0.1 10^3/uL (0.0-0.50); EOS % 0.5 % (0.0-3.0); HEMATOCRIT 38.9 % (42.0-52.0); HEMOGLOBIN 11.8 g/dl (13.5-17.5); LYMPH # 1.9 10^3/uL (1.5-4.5); LYMPH % 18.7 % (24.0-44.0); MEAN CORPUSCULAR HEMOGLOBIN 25.5 pg (27.0-33.0); MEAN CORPUSCULAR HGB CONC 30.3 g/dl (32.0-36.5); MEAN CORPUSCULAR VOLUME 84.2 fl (80.0-96.0); MONO # 0.6 10^3/uL (0.0-0.8); NEUTROPHILS # 7.6 10^3/uL (1.8-7.7); NEUTROPHILS % 73.5 % (36.0-66.0); PLATELET COUNT, AUTOMATED 236 10^3/uL (150-450); RED BLOOD COUNT 4.62 10^6/uL (4.30-6.10); WHITE BLOOD COUNT 10.4 10^3/uL (4.0-10.0)
[2018-10-03 06:52] LABS: INR 2.87; PROTHROMBIN TIME 30.7 SECONDS (12.1-14.4)
[2018-10-03 07:09] LABS: BLOOD UREA NITROGEN 31 MG/DL (7-18); C REACTIVE PROTEIN QUANTITATIV 6.94 MG/DL (0.00-0.30); CALCIUM LEVEL 8.5 MG/DL (8.8-10.2); CARBON DIOXIDE LEVEL 29 MEQ/L (21-32); CHLORIDE LEVEL 106 MEQ/L (98-107); CREATININE FOR GFR 0.84 MG/DL (0.70-1.30); GLOMERULAR FILTRATION RATE > 60.0 (>49); GLUCOSE, FASTING 201 MG/DL (70-100); POTASSIUM SERUM 4.2 MEQ/L (3.5-5.1); SODIUM LEVEL 139 MEQ/L (136-145)
[2018-10-03] MEDS: HumaLOG INSULIN (NovoLOG) PER UNIT SC SCH ×4 (08:28→20:41)
[2018-10-03 08:43] VITALS: BP 132/68
[2018-10-03] MEDS: FEBUXOSTAT 40 MG TABLET (ULORIC) PO SCH (09:38)
[2018-10-03] MEDS: TORSEMIDE 20 MG TAB PO SCH (09:38)
[2018-10-03] MEDS: AUGMENTIN 875 MG TAB PO SCH ×2 (09:38→20:42)
[2018-10-03] MEDS: ASPIRIN 81 MG CHEW TABLET PO SCH (09:38)
[2018-10-03] MEDS: GABAPENTIN 300 MG CAP PO SCH ×2 (09:39→20:42)
[2018-10-03] MEDS: predniSONE 10 MG TAB PO SCH ×2 (09:39→20:42)
[2018-10-03] MEDS: POTASSIUM CHLORIDE 10 MEQ SR TABLET PO SCH (09:39)
[2018-10-03] MEDS: SERTRALINE HCL 50 MG TAB PO SCH (09:40)
[2018-10-03] MEDS: ATORVASTATIN 20 MG TAB PO SCH (09:40)
[2018-10-03] MEDS: LOSARTAN 25 MG TAB PO SCH (09:40)
[2018-10-03] MEDS: LEVEMIR (INSULIN DETEMIR) 1 UNITS/0.01ML SC SCH ×2 (09:41→20:42)
[2018-10-03] MEDS: oxyCODONE 5MG TAB PO PRN ×3 (11:19→20:43)
--- NOTE | 2018-10-03 11:41 | IPNPDOC ---
Text Note Date of Service The patient was seen on 10/03/18. NOTE Subjective: Patient is a 63-year-old male with a PMHx of CAD s/p CABG, Systolic CHF 2/2 ischemic cardiomyopathy, Hx Bioprosthetic AVR, A. fib (on Coumadin), Hx of Dual chamber PM, HTN, DLP, DM2, DAVID on CPAP, CKD3, Gout (on Prednisone), OA, BPH, Hx of Nephrolithiasis, Morbid obesity, who presented to the ER with complaints of LE swelling and knee pain. Patient was admitted to the hospitalist service for further evaluation, treatment for his suspected congestive heart failure exacerbation. Patient was seen and examined at the bedside. Patient reports that his elbow pain is doing better. His knee pain is well-controlled with new medication regimen. Denies chest pain, shortness of breath. Denies palpitations or cough. Denies nausea, vomiting or abdominal pain. Reports regular bowel movements. Objective: Vitals (See below) General: Lying in bed, no acute distress, comfortable, AAOx3 HEENT: NC, AT CVS: RRR, +S1S2 Lungs: Air entry is fair bilaterally, without auscultated evidence of wheezing, rhonchi or rales Abdomen: Abdomen is soft. No evidence of distention/tenderness Extremities: There is still at least 1+ pitting edema bilaterally; more pronounced at feet, then calf, - Calf tenderness Assessment and plan: Bilateral LE swelling - likely 2/2 Decompensated Diastolic and Systolic CHF (EF: 30%) - Patient continues to have improvement in his lower extremity swelling - BNP was noted to be elevated - ECHO 09/24: EF: 30-35%, Bioprosthetic AV, high CVP, severe biatrial enlargement, - CXR 09/22: Exam limitations and chronic changes with other findings as described above. - Duplex US 09/22: There is no ultrasonographic evidence of deep venous thrombosis involving any of the visualized deep venous structures of the right and left thigh, as described above. - c/w Strict ins/outs - has been approximately 11.1 L negative, Daily weights - c/w Torsemide 60 daily Bilateral knee pain (L > R) - likely 2/2 gout flare / OA - XR Knee 09/22: Degenerative and osteoarthritic changes. Vascular calcification. Evidence of joint effusion on the left as a new finding. - XR Ankle 09/22: Osteoarthritic changes. Advanced vascular calcification. Diffuse swelling. Heel spurs. No acute bony abnormality. - Patient has had his L knee joint aspirated and corticosteroids injected (09/26) with Orthopedic surgery - c/w Prednisone at home dose - Orthopedic surgery on consult; Dr. Byrne - c/w Tylenol for arthritic pain - Pain management has been on consultation; re-discussed case; will provide higher dose of oxycodone Left elbow drainage - likely 2/2 gout tophi - Patient has reported that he has been putting his weight on his elbow - Area appears to be draining white output - L elbow culture 09/24: Staph aureus, Staph Sp Coag Neg - L Elbow XR 09/26: No fracture noted. Olecranon soft tissue swelling and dystrophic soft-tissue calcification. Vascular calcification. Mild proximal ulnar spurring. - c/w antibiotics from outpatient; Augmentin - c/w Daily dressing changes Leukocytosis - possibly 2/2 corticosteroids - Patient has been on elevated doses of corticosteroids orally and has received a corticosteroid joint injection - Review systems is negative for any additional sources of infection - Will continue with current antibiotic - CRP mildly trending up; will continue to follow DAVID on CPAP - non-compliant with therapy Hx of A. fib - Currently not on any rate / rhythm control mediations - Patient has a dual chamber PM - INR remains therapeutic - c/w Coumadin - c/w reduced dose DM2 with hyperglycemia - c/w ISS and Levemir with adjusted dose Right Second Finger Joint Infection - - Patient has had intervention at [facility] - Has been on Augmentin as an outpatient; was switched to Unasyn when he was admitted - c/w Augmentin currently - Outpatient follow-up with orthopedic surgery CAD s/p CABG - c/w ASA, Atorvastatin, Losartan s/p Hematuria - possibly 2/2 Staghorn Stone - Extraction has been scheduled for 10/03/2018 in [place] - Discussed with urology office in [place]; patient was tentatively scheduled for a percutaneous nephrostomy with resection of staggering calculus - Discussed with in house Urology about performing procedure at [facility]; currently we are not capable of performing percutaneous nephrostomies - Will have outpatient procedure rescheduled Peripheral neuropathy / Hx of Lumbar Spinal stenosis - c/w Gabapentin Depression - c/w Sertraline BPH - Currently not on medications Morbid obesity - Complicating medical care Gout - likely with acute flare - c/w Prednisone and Febuxostat CKD3 - Cr appears to be at baseline DVT prophylaxis - c/w full anticoagulation with Coumadin Disposition: - Continue with diuresis - Continue with physical therapy / occupational therapy VS,Blake, I+O VS, Fishqianae, I+O Laboratory Tests 10/03/18 06:10 Red Blood Count 4.62, Mean Corpuscular Volume 84.2, Mean Corpuscular Hemoglobin 25.5 L, Mean Corpuscular Hemoglobin Concent 30.3 L, Red Cell Distribution Width 17.1 H, Neutrophils (%) (Auto) 73.5 H, Lymphocytes (%) (Auto) 18.7 L, Monocytes (%) (Auto) 6.0 H, Eosinophils (%) (Auto) 0.5, Basophils (%) (Auto) 0.3, Neutrophils # (Auto) 7.6, Lymphocytes # (Auto) 1.9, Monocytes # (Auto) 0.6, Eosinophils # (Auto) 0.1, Basophils # (Auto) 0.0, Calcium Level 8.5 L Vital Signs Date Time Temp Pulse Resp B/P (MAP) Pulse Ox O2 Delivery O2 Flow Rate FiO2 10/03/18 11:19 17 10/03/18 09:40 132/68 10/03/18 08:43 96.6 74 96 10/02/18 21:00 2.0 09/30/18 09:30 Room Air I&O- Last 24 Hours up to 6 AM 10/03/18 05:59 Intake Total 1360 ml Output Total 1825 ml Balance -465 ml SAM TRAN MD October 03, 2018 11:41
[2018-10-03 13:55] VITALS: BP 134/66
[2018-10-03] MEDS: WARFARIN SOD 3 MG TAB PO SCH (17:59)
[2018-10-03] MEDS: TEMAZEPAM 15 MG CAP PO SCH (21:38)
[2018-10-03 22:00] VITALS: BP 130/61
[2018-10-04] MEDS: SLF 3 ML SYR IV SCH ×3 (05:01→22:00)
[2018-10-04 05:42] LABS: BASO % 0.3 % (0.0-1.0); EOS % 0.4 % (0.0-3.0); HEMATOCRIT 38.4 % (42.0-52.0); HEMOGLOBIN 11.5 g/dl (13.5-17.5); LYMPH % 20.6 % (24.0-44.0); MEAN CORPUSCULAR HEMOGLOBIN 25.4 pg (27.0-33.0); MEAN CORPUSCULAR HGB CONC 29.9 g/dl (32.0-36.5); MONO # 0.5 10^3/uL (0.0-0.8); MONO % 5.2 % (0.0-5.0); NEUTROPHILS % 72.6 % (36.0-66.0); PLATELET COUNT, AUTOMATED 208 10^3/uL (150-450); RED BLOOD COUNT 4.52 10^6/uL (4.30-6.10); WHITE BLOOD COUNT 9.7 10^3/uL (4.0-10.0)
[2018-10-04 06:00] VITALS: BP 130/61
[2018-10-04 06:06] LABS: BLOOD UREA NITROGEN 34 MG/DL (7-18); CALCIUM LEVEL 8.3 MG/DL (8.8-10.2); CARBON DIOXIDE LEVEL 26 MEQ/L (21-32); CHLORIDE LEVEL 107 MEQ/L (98-107); CREATININE FOR GFR 0.83 MG/DL (0.70-1.30); GLOMERULAR FILTRATION RATE > 60.0 (>49); GLUCOSE, FASTING 247 MG/DL (70-100); POTASSIUM SERUM 4.2 MEQ/L (3.5-5.1); SODIUM LEVEL 137 MEQ/L (136-145)
[2018-10-04] MEDS: HumaLOG INSULIN (NovoLOG) PER UNIT SC SCH ×4 (08:11→22:09)
[2018-10-04 08:15] VITALS: BP 108/66
[2018-10-04] MEDS: oxyCODONE 5MG TAB PO PRN ×4 (08:15→23:07)
[2018-10-04] MEDS: TORSEMIDE 20 MG TAB PO SCH (08:51)
[2018-10-04] MEDS: SERTRALINE HCL 50 MG TAB PO SCH (09:27)
[2018-10-04] MEDS: ATORVASTATIN 20 MG TAB PO SCH (09:28)
[2018-10-04] MEDS: FEBUXOSTAT 40 MG TABLET (ULORIC) PO SCH (09:28)
[2018-10-04] MEDS: GABAPENTIN 300 MG CAP PO SCH ×2 (09:29→22:10)
[2018-10-04] MEDS: LOSARTAN 25 MG TAB PO SCH (09:29)
[2018-10-04] MEDS: POTASSIUM CHLORIDE 10 MEQ SR TABLET PO SCH (09:30)
[2018-10-04] MEDS: predniSONE 10 MG TAB PO SCH ×2 (09:31→22:10)
[2018-10-04] MEDS: AUGMENTIN 875 MG TAB PO SCH ×2 (09:31→22:10)
[2018-10-04] MEDS: ASPIRIN 81 MG CHEW TABLET PO SCH (09:32)
[2018-10-04] MEDS: LEVEMIR (INSULIN DETEMIR) 1 UNITS/0.01ML SC SCH ×2 (09:46→22:09)
--- NOTE | 2018-10-04 12:26 | IPNPDOC ---
Text Note Date of Service The patient was seen on 10/04/18. NOTE Subjective: Patient was seen and examined at the bedside. Patient reports that his elbow pain is doing better. His knee pain is well-controlled with new medication regimen. Denies chest pain, shortness of breath. Denies palpitations or cough. Denies nausea, vomiting or abdominal pain. Reports regular bowel movements. his leg swelling is improving. Objective: Vitals (See below) General: Lying in bed, no acute distress, comfortable, AAOx3 HEENT: NC, AT CVS: RRR, +S1S2, No rub, murumur or gallop Lungs: Air entry is fair bilaterally, without auscultated evidence of wheezing, rhonchi or rales Abdomen: Abdomen is soft. No evidence of distention/tenderness Extremities: There is still at least 2+ pitting edema bilaterally; more pronounced at feet, than calf, - Calf tenderness Labs and Radiology: reviewed. Assessment and plan: Patient is a 63-year-old male with a PMHx of CAD s/p CABG, Systolic CHF 2/2 ischemic cardiomyopathy, Hx Bioprosthetic AVR, A. fib (on Coumadin), Hx of Dual chamber PM, HTN, DLP, DM2, DAVID not on CPAP, CKD3, Gout (on Prednisone), OA, BPH, Hx of Nephrolithiasis, Morbid obesity, who presented to the ER with complaints of LE swelling and knee pain. Patient was admitted to the hospitalist service for further evaluation, treatment for his suspected congestive heart failure exacerbation. Decompensated Diastolic and Systolic CHF (EF: 30%) Patient continues to have improvement in his lower extremity swelling ECHO 09/24: EF: 30-35%, Bioprosthetic AV, high CVP, severe biatrial enlargement, Duplex US 09/22: There is no ultrasonographic evidence of deep venous thrombosis involving any of the visualized deep venous structures of the right and left thigh, as described above. - c/w Strict ins/outs - c/w Torsemide 60 daily Bilateral knee pain (L > R) - likely 2/2 gout flare / OA - XR Knee 09/22: Degenerative and osteoarthritic changes. Vascular calcification. Evidence of joint effusion on the left as a new finding. - XR Ankle 09/22: Osteoarthritic changes. Advanced vascular calcification. Diffuse swelling. Heel spurs. No acute bony abnormality. - Patient has had his L knee joint aspirated and corticosteroids injected (09/26) with Orthopedic surgery - c/w Prednisone at home dose , oxycodone, gabapentin, tylenol - Orthopedic surgery on consult; Dr. Byrne - Pain management has been on consultation Left elbow drainage - likely 2/2 gout tophi - Patient has reported that he has been putting his weight on his elbow - Area appears to be draining white output - L elbow culture 09/24: Staph aureus, Staph Sp Coag Neg - L Elbow XR 09/26: No fracture noted. Olecranon soft tissue swelling and dystrophic soft-tissue calcification. Vascular calcification. Mild proximal ulnar spurring. - c/w antibiotics from outpatient; Augmentin - c/w Daily dressing changes Leukocytosis - possibly 2/2 corticosteroids resolved. Patient has been on elevated doses of corticosteroids orally and has received a corticosteroid joint injection Will continue with current antibiotic DAVID does not have CPAP was advised CPAP but did not like it so never used it. Nocturnal oxygen supplementation during sleep. Hx of A. fib - Currently not on any rate / rhythm control mediations - Patient has a dual chamber PM - INR remains therapeutic - c/w Coumadin - c/w reduced dose DM2 with hyperglycemia - c/w ISS and Levemir with adjusted dose Right Second Finger Joint Infection - - Patient has had intervention at [facility] - Has been on Augmentin as an outpatient; was switched to Unasyn when he was ad mitted - c/w Augmentin currently - Outpatient follow-up with orthopedic surgery CAD s/p CABG - c/w ASA, Atorvastatin, Losartan s/p Hematuria - possibly 2/2 Staghorn Stone - Extraction has been scheduled for 10/03/2018 in [place] - Discussed with urology office in [place]; patient was tentatively scheduled for a percutaneous nephrostomy with resection of staggering calculus - Discussed with in house Urology about performing procedure at [facility]; currently we are not capable of performing percutaneous nephrostomies - Will have outpatient procedure rescheduled Peripheral neuropathy / Hx of Lumbar Spinal stenosis - c/w Gabapentin Depression - c/w Sertraline, temazepam BPH - Currently not on medications Morbid obesity - Complicating medical care Gout - likely with acute flare - c/w Prednisone and Febuxostat CKD3 - Cr appears to be at baseline hyperlipidemia continue statin DVT prophylaxis - c/w full anticoagulation with Coumadin Disposition: - Continue with diuresis - Continue with physical therapy / occupational therapy A-FIB/CHADSVASC A-FIB History Current/History of A-Fib/PAF?: Yes Current Oral Anticoagulant The: Yes VS,Fishbone, I+O VS, Fishbone, I+O Laboratory Tests 10/04/18 05:17 Red Blood Count 4.52, Mean Corpuscular Volume 85.0, Mean Corpuscular Hemoglobin 25.4 L, Mean Corpuscular Hemoglobin Concent 29.9 L, Red Cell Distribution Width 17.2 H, Neutrophils (%) (Auto) 72.6 H, Lymphocytes (%) (Auto) 20.6 L, Monocytes (%) (Auto) 5.2 H, Eosinophils (%) (Auto) 0.4, Basophils (%) (Auto) 0.3, Neutrophils # (Auto) 7.0, Lymphocytes # (Auto) 2.0, Monocytes # (Auto) 0.5, Eosinophils # (Auto) 0.0, Basophils # (Auto) 0.0, Calcium Level 8.3 L Vital Signs Date Time Temp Pulse Resp B/P (MAP) Pulse Ox O2 Delivery O2 Flow Rate FiO2 10/04/18 09:29 108/66 10/04/18 08:45 18 10/04/18 08:15 96.0 82 97 10/04/18 06:00 2.0 09/30/18 09:30 Room Air I&O- Last 24 Hours up to 6 AM 10/04/18 06:00 Intake Total 1080 ml Output Total 1900 ml Balance -820 ml ALCIDES RATLIFF MD October 04, 2018 12:26
[2018-10-04] MEDS ORDERED: oxyCODONE 5MG TAB PO PRN (12:30)
[2018-10-04 14:00] VITALS: BP 98/56
[2018-10-04] MEDS: glipiZIDE (GLUCOTROL) 5 MG TAB PO SCH (17:14)
[2018-10-04] MEDS: WARFARIN SOD 3 MG TAB PO SCH (17:15)
[2018-10-04 22:00] VITALS: BP 95/68
[2018-10-04] MEDS: ACETAMINOPHEN 650MG ER TAB (TYLENOL ARTHRITIS) PO PRN (22:09)
[2018-10-04] MEDS: TEMAZEPAM 15 MG CAP PO SCH (22:10)
[2018-10-05] MEDS: SLF 3 ML SYR IV SCH ×3 (05:18→21:33)
[2018-10-05] MEDS: oxyCODONE 5MG TAB PO PRN ×3 (05:40→18:32)
[2018-10-05 06:00] VITALS: BP 108/56
[2018-10-05 06:46] LABS: BASO % 0.4 % (0.0-1.0); EOS % 0.3 % (0.0-3.0); HEMATOCRIT 36.3 % (42.0-52.0); LYMPH # 1.9 10^3/uL (1.5-4.5); LYMPH % 17.9 % (24.0-44.0); MEAN CORPUSCULAR HEMOGLOBIN 25.5 pg (27.0-33.0); MEAN CORPUSCULAR HGB CONC 30.3 g/dl (32.0-36.5); MEAN CORPUSCULAR VOLUME 84.2 fl (80.0-96.0); MONO # 0.6 10^3/uL (0.0-0.8); MONO % 5.5 % (0.0-5.0); NEUTROPHILS # 7.9 10^3/uL (1.8-7.7); NEUTROPHILS % 75.3 % (36.0-66.0); PLATELET COUNT, AUTOMATED 215 10^3/uL (150-450); RED BLOOD COUNT 4.31 10^6/uL (4.30-6.10); WHITE BLOOD COUNT 10.5 10^3/uL (4.0-10.0)
[2018-10-05 07:08] LABS: BLOOD UREA NITROGEN 31 MG/DL (7-18); CALCIUM LEVEL 8.6 MG/DL (8.8-10.2); CARBON DIOXIDE LEVEL 28 MEQ/L (21-32); CHLORIDE LEVEL 108 MEQ/L (98-107); CREATININE FOR GFR 0.76 MG/DL (0.70-1.30); GLOMERULAR FILTRATION RATE > 60.0 (>49); GLUCOSE, FASTING 171 MG/DL (70-100); MAGNESIUM LEVEL 2.1 MG/DL (1.8-2.4); POTASSIUM SERUM 4.2 MEQ/L (3.5-5.1); SODIUM LEVEL 139 MEQ/L (136-145)
[2018-10-05] MEDS: HumaLOG INSULIN (NovoLOG) PER UNIT SC SCH ×4 (07:52→21:33)
[2018-10-05] MEDS: GABAPENTIN 300 MG CAP PO SCH ×2 (09:04→21:32)
[2018-10-05] MEDS: ATORVASTATIN 20 MG TAB PO SCH (09:05)
[2018-10-05] MEDS: POTASSIUM CHLORIDE 10 MEQ SR TABLET PO SCH (09:05)
[2018-10-05] MEDS: SERTRALINE HCL 50 MG TAB PO SCH (09:05)
[2018-10-05] MEDS: FEBUXOSTAT 40 MG TABLET (ULORIC) PO SCH (09:05)
[2018-10-05] MEDS: LOSARTAN 25 MG TAB PO SCH (09:06)
[2018-10-05] MEDS: LEVEMIR (INSULIN DETEMIR) 1 UNITS/0.01ML SC SCH ×2 (09:07→21:33)
[2018-10-05] MEDS: predniSONE 10 MG TAB PO SCH ×2 (09:14→21:32)
[2018-10-05] MEDS: TORSEMIDE 20 MG TAB PO SCH ×2 (09:14→17:00)
[2018-10-05] MEDS: AUGMENTIN 875 MG TAB PO SCH ×2 (09:14→21:32)
[2018-10-05] MEDS: ASPIRIN 81 MG CHEW TABLET PO SCH (09:14)
[2018-10-05 14:07] VITALS: BP 106/53
--- NOTE | 2018-10-05 14:58 | IPNPDOC ---
Text Note Date of Service The patient was seen on 10/05/18. NOTE Subjective: Patient was seen and examined at the bedside. His knee pain is we ll-controlled with new medication regimen. Denies chest pain, shortness of breath. Denies palpitations or cough. Denies nausea, vomiting or abdominal pain. Reports regular bowel movements. his leg swelling is improving. His elbow pain has resolved. He is working with PT with steady improvements. Objective: Vitals (See below) General: Lying in bed, no acute distress, comfortable, AAOx3 HEENT: NC, AT CVS: RRR, +S1S2, No rub, murumur or gallop Lungs: Air entry is fair bilaterally, without auscultated evidence of wheezing, rhonchi or rales Abdomen: Abdomen is soft. No evidence of distention/tenderness Extremities: There is still at least 2+ pitting edema bilaterally; more pronounced at feet, than calf, - Calf tenderness Labs and Radiology: reviewed. Assessment and plan: Patient is a 63-year-old male with a PMHx of CAD s/p CABG, Systolic CHF 2/2 ischemic cardiomyopathy, Hx Bioprosthetic AVR, A. fib (on Coumadin), Hx of Dual chamber PM, HTN, DLP, DM2, DAVID not on CPAP, CKD3, Gout (on Prednisone), OA, BPH, Hx of Nephrolithiasis, Morbid obesity, who presented to the ER with complaints of LE swelling and knee pain. Patient was admitted to the hospitalist service for further evaluation, treatment for his suspected congestive heart failure exacerbation. Decompensated Diastolic and Systolic CHF (EF: 30%) Patient continues to have improvement in his lower extremity swelling ECHO 09/24: EF: 30-35%, Bioprosthetic AV, high CVP, severe biatrial enlargement, Duplex US 09/22: There is no ultrasonographic evidence of deep venous thrombosis involving any of the visualized deep venous structures of the right and left thigh, as described above. c/w Strict ins/outs c/w Torsemide 60 daily Bilateral knee pain (L > R) - likely 2/2 gout flare / OA XR Knee 09/22: Degenerative and osteoarthritic changes. Vascular calcification. Evidence of joint effusion on the left as a new finding. XR Ankle 09/22: Osteoarthritic changes. Advanced vascular calcification. Diffuse swelling. Heel spurs. No acute bony abnormality. Patient has had his L knee joint aspirated and corticosteroids injected (09/26) with Orthopedic surgery c/w Prednisone at home dose , oxycodone, gabapentin, tylenol Orthopedic surgery on consult; Dr. Byrne Pain management has been on consultation Left elbow drainage - likely 2/2 gout tophi Patient has reported that he has been putting his weight on his elbow Area appears to be draining white output L elbow culture 09/24: Staph aureus, Staph Sp Coag Neg L Elbow XR 09/26: No fracture noted. Olecranon soft tissue swelling and dystrophi c soft-tissue calcification. Vascular calcification. Mild proximal ulnar spurring. c/w antibiotics from outpatient; Augmentin c/w Daily dressing changes Leukocytosis - possibly 2/2 corticosteroids resolved. Patient has been on elevated doses of corticosteroids orally and has received a corticosteroid joint injection Will continue with current antibiotic DAVID does not have CPAP was advised CPAP but did not like it so never used it. Nocturnal oxygen supplementation during sleep. Hx of A. 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 Patient has had intervention at [facility] Has been on Augmentin as an outpatient; was switched to Unasyn when he was admi tted c/w Augmentin currently Outpatient follow-up with orthopedic surgery CAD s/p CABG c/w ASA, Atorvastatin, Losartan s/p Hematuria - possibly 2/2 Staghorn Stone Extraction has been scheduled for 10/03/2018 in [place] Discussed with urology office in [place]; patient was tentatively scheduled for a percutaneous nephrostomy with resection of staggering calculus Discussed with in house Urology about performing procedure at [facility]; currently we are not capable of performing percutaneous nephrostomies Will have outpatient procedure rescheduled Peripheral neuropathy / Hx of Lumbar Spinal stenosis c/w Gabapentin Depression c/w Sertraline, temazepam BPH Currently not on medications Morbid obesity Complicating medical care Topheceous Gout - likely with acute flare c/w Prednisone and Febuxostat Multiple areas of tophi seen CKD3 - Cr appears to be at baseline hyperlipidemia continue statin DVT prophylaxis c/w full anticoagulation with Coumadin Disposition: Continue with physical therapy / occupational therapy. needs clearance. A-FIB/CHADSVASC A-FIB History Current/History of A-Fib/PAF?: Yes Current Oral Anticoagulant The: Yes VS,Fishbone, I+O VS, Fishbone, I+O Laboratory Tests 10/05/18 06:25 Red Blood Count 4.31, Mean Corpuscular Volume 84.2, Mean Corpuscular Hemoglobin 25.5 L, Mean Corpuscular Hemoglobin Concent 30.3 L, Red Cell Distribution Width 17.0 H, Neutrophils (%) (Auto) 75.3 H, Lymphocytes (%) (Auto) 17.9 L, Monocytes (%) (Auto) 5.5 H, Eosinophils (%) (Auto) 0.3, Basophils (%) (Auto) 0.4, Neutrophils # (Auto) 7.9 H, Lymphocytes # (Auto) 1.9, Monocytes # (Auto) 0.6, Eosinophils # (Auto) 0.0, Basophils # (Auto) 0.0 Vital Signs Date Time Temp Pulse Resp B/P (MAP) Pulse Ox O2 Delivery O2 Flow Rate FiO2 10/05/18 06:10 18 10/05/18 06:00 98.2 83 108/56 (73) 98 2.0 09/30/18 09:30 Room Air I&O- Last 24 Hours up to 6 AM 10/05/18 06:00 Intake Total 1340 ml Output Total 775 ml Balance 565 ml ALCIDES RATLIFF MD October 05, 2018 06:56
[2018-10-05] MEDS: glipiZIDE (GLUCOTROL) 5 MG TAB PO SCH (17:00)
[2018-10-05] MEDS: WARFARIN SOD 3 MG TAB PO SCH (17:00)
[2018-10-05] MEDS: TEMAZEPAM 15 MG CAP PO SCH (21:32)
[2018-10-05 22:00] VITALS: BP 115/65
[2018-10-06] MEDS: SLF 3 ML SYR IV SCH ×3 (05:35→21:05)
[2018-10-06] MEDS: oxyCODONE 5MG TAB PO PRN ×3 (05:57→18:34)
[2018-10-06 06:00] VITALS: BP 108/65
[2018-10-06] MEDS: FEBUXOSTAT 40 MG TABLET (ULORIC) PO SCH (08:53)
[2018-10-06] MEDS: ATORVASTATIN 20 MG TAB PO SCH (08:53)
[2018-10-06] MEDS: predniSONE 10 MG TAB PO SCH ×2 (08:53→21:05)
[2018-10-06] MEDS: SERTRALINE HCL 50 MG TAB PO SCH (08:53)
[2018-10-06] MEDS: GABAPENTIN 300 MG CAP PO SCH ×2 (08:53→21:04)
[2018-10-06] MEDS: AUGMENTIN 875 MG TAB PO SCH ×2 (08:53→21:05)
[2018-10-06] MEDS: ASPIRIN 81 MG CHEW TABLET PO SCH (08:53)
[2018-10-06] MEDS: POTASSIUM CHLORIDE 10 MEQ SR TABLET PO SCH (08:54)
[2018-10-06] MEDS: TORSEMIDE 20 MG TAB PO SCH ×2 (08:54→16:58)
[2018-10-06] MEDS: LOSARTAN 25 MG TAB PO SCH (08:54)
[2018-10-06] MEDS: HumaLOG INSULIN (NovoLOG) PER UNIT SC SCH ×4 (08:55→21:00)
[2018-10-06] MEDS: LEVEMIR (INSULIN DETEMIR) 1 UNITS/0.01ML SC SCH ×2 (08:55→21:04)
--- NOTE | 2018-10-06 09:48 | IPNPDOC ---
Text Note Date of Service The patient was seen on 10/06/18. NOTE Subjective: Patient was seen and examined at the bedside. His knee pain is well-controlled with new medication regimen. Denies chest pain, shortness of breath. Denies palpitations or cough. Denies nausea, vomiting or abdominal pain. Reports regular bowel movements. his leg swelling is improving. His elbow pain has resolved. He is working with PT with steady improvements. Objective: Vitals (See below) General: Lying in bed, no acute distress, comfortable, AAOx3 HEENT: NC, AT CVS: RRR, +S1S2, No rub, murumur or gallop Lungs: Air entry is fair bilaterally, without auscultated evidence of wheezing, rhonchi or rales Abdomen: Abdomen is soft. No evidence of distention/tenderness Extremities: There is still at least 2+ pitting edema bilaterally; more pronounced at feet, than calf, - Calf tenderness Labs and Radiology: reviewed. Assessment and plan: Patient is a 63-year-old male with a PMHx of CAD s/p CABG, Systolic CHF 2/2 ischemic cardiomyopathy, Hx Bioprosthetic AVR, A. fib (on Coumadin), Hx of Dual chamber PM, HTN, DLP, DM2, DAVID not on CPAP, CKD3, Gout (on Prednisone), OA, BPH, Hx of Nephrolithiasis, Morbid obesity, who presented to the ER with complaints of LE swelling and knee pain. Patient was admitted to the hospitalist service for further evaluation, treatment for his suspected congestive heart failure exacerbation. Decompensated Diastolic and Systolic CHF (EF: 30%) Patient continues to have improvement in his lower extremity swelling ECHO 09/24: EF: 30-35%, Bioprosthetic AV, high CVP, severe biatrial enlargement, Duplex US 09/22: There is no ultrasonographic evidence of deep venous thrombosis involving any of the visualized deep venous structures of the right and left thigh, as described above. c/w Strict ins/outs c/w Torsemide 60 bid Bilateral knee pain (L > R) - likely 2/2 gout flare / OA XR Knee 09/22: Degenerative and osteoarthritic changes. Vascular calcification. Evidence of joint effusion on the left as a new finding. XR Ankle 09/22: Osteoarthritic changes. Advanced vascular calcification. Diffuse swelling. Heel spurs. No acute bony abnormality. Patient has had his L knee joint aspirated and corticosteroids injected (09/26) with Orthopedic surgery c/w Prednisone at home dose , oxycodone, gabapentin, tylenol Orthopedic surgery on consult; Dr. Byrne Pain management has been on consultation Left elbow drainage - likely 2/2 gout tophi Patient has reported that he has been putting his weight on his elbow Area appears to be draining white output L elbow culture 09/24: Staph aureus, Staph Sp Coag Neg L Elbow XR 09/26: No fracture noted. Olecranon soft tissue swelling and dystrophic soft-tissue calcification. Vascular calcification. Mild proximal ulnar spurring. c/w antibiotics from outpatient; Augmentin c/w Daily dressing changes Leukocytosis - possibly 2/2 corticosteroids resolved. Patient has been on elevated doses of corticosteroids orally and has received a corticosteroid joint injection Will continue with current antibiotic DAVID does not have CPAP was advised CPAP but did not like it so never used it. Nocturnal oxygen supplementation during sleep. Hx of A. 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 Patient has had intervention at [facility] Has been on Augmentin as an outpatient; was switched to Unasyn when he was admitted c/w Augmentin currently Outpatient follow-up with orthopedic surgery CAD s/p CABG c/w ASA, Atorvastatin, Losartan s/p Hematuria - possibly 2/2 Staghorn Stone Extraction has been scheduled for 10/03/2018 in [place] Discussed with urology office in [place]; patient was tentatively scheduled for a percutaneous nephrostomy with resection of staggering calculus Discussed with in house Urology about performing procedure at [facility]; currently we are not capable of performing percutaneous nephrostomies Will have outpatient procedure rescheduled Peripheral neuropathy / Hx of Lumbar Spinal stenosis c/w Gabapentin Depression c/w Sertraline, temazepam BPH Currently not on medications Morbid obesity Complicating medical care Topheceous Gout - likely with acute flare c/w Prednisone and Febuxostat Multiple areas of tophi seen CKD3 - Cr appears to be at baseline hyperlipidemia continue statin DVT prophylaxis c/w full anticoagulation with Coumadin Disposition: Continue with physical therapy / occupational therapy. needs clearance. VS,Fishbone, I+O VS, Fishbone, I+O Vital Signs Date Time Temp Pulse Resp B/P (MAP) Pulse Ox O2 Delivery O2 Flow Rate FiO2 10/06/18 08:54 118/57 10/06/18 06:55 17 10/06/18 06:00 98.3 85 97 2.0 09/30/18 09:30 Room Air I&O- Last 24 Hours up to 6 AM 10/06/18 06:00 Intake Total 1840 ml Output Total 3875 ml Balance -2035 ml ALCIDES RATLIFF MD October 06, 2018 09:48
[2018-10-06 14:00] VITALS: BP 123/58
[2018-10-06] MEDS: glipiZIDE (GLUCOTROL) 5 MG TAB PO SCH (16:58)
[2018-10-06] MEDS: WARFARIN SOD 3 MG TAB PO SCH (16:59)
[2018-10-06] MEDS: TEMAZEPAM 15 MG CAP PO SCH (21:05)
[2018-10-06 22:00] VITALS: BP 156/85
[2018-10-07] MEDS: SLF 3 ML SYR IV SCH ×3 (05:20→14:00)
[2018-10-07] MEDS: oxyCODONE 5MG TAB PO PRN ×3 (05:23→18:54)
[2018-10-07 06:00] VITALS: BP 118/53
[2018-10-07 06:06] LABS: INR 2.37; PROTHROMBIN TIME 26.4 SECONDS (12.1-14.4)
[2018-10-07] MEDS: HumaLOG INSULIN (NovoLOG) PER UNIT SC SCH ×4 (09:04→20:18)
[2018-10-07] MEDS: AUGMENTIN 875 MG TAB PO SCH ×2 (09:05→20:17)
[2018-10-07] MEDS: LEVEMIR (INSULIN DETEMIR) 1 UNITS/0.01ML SC SCH ×2 (09:05→20:17)
[2018-10-07] MEDS: ATORVASTATIN 20 MG TAB PO SCH (09:05)
[2018-10-07] MEDS: FEBUXOSTAT 40 MG TABLET (ULORIC) PO SCH (09:05)
[2018-10-07] MEDS: POTASSIUM CHLORIDE 10 MEQ SR TABLET PO SCH (09:05)
[2018-10-07] MEDS: ASPIRIN 81 MG CHEW TABLET PO SCH (09:05)
[2018-10-07] MEDS: LOSARTAN 25 MG TAB PO SCH (09:06)
[2018-10-07] MEDS: TORSEMIDE 20 MG TAB PO SCH ×2 (09:06→17:12)
[2018-10-07] MEDS: predniSONE 10 MG TAB PO SCH ×2 (09:06→20:17)
[2018-10-07] MEDS: GABAPENTIN 300 MG CAP PO SCH ×2 (09:06→20:17)
[2018-10-07] MEDS: SERTRALINE HCL 50 MG TAB PO SCH (09:06)
--- NOTE | 2018-10-07 12:30 | IPNPDOC ---
Text Note Date of Service The patient was seen on 10/07/18. NOTE Subjective: Patient was seen and examined at the bedside. His knee pain is well-controlled with new medication regimen. Denies chest pain, shortness of breath. Denies palpitations or cough. Denies nausea, vomiting or abdominal pain. Reports regular bowel movements. his leg swelling is improving. His elbow pain has resolved. He is working with PT with steady improvements. He continues to have discharge white creamy from pin point openings on the left elbow. Have asked Dr Byrne to reevaluate. Objective: Vitals (See below) General: Lying in bed, no acute distress, comfortable, AAOx3 HEENT: NC, AT CVS: RRR, +S1S2, No rub, murumur or gallop Lungs: Air entry is fair bilaterally, without auscultated evidence of wheezing, rhonchi or rales Abdomen: Abdomen is soft. No evidence of distention/tenderness Extremities: There is still at least 2+ pitting edema bilaterally; more pronounced at feet, than calf, - Calf tenderness Labs and Radiology: reviewed. Assessment and plan: Patient is a 63-year-old male with a PMHx of CAD s/p CABG, Systolic CHF 2/2 ischemic cardiomyopathy, Hx Bioprosthetic AVR, A. fib (on Coumadin), Hx of Dual chamber PM, HTN, DLP, DM2, DAVID not on CPAP, CKD3, Gout (on Prednisone), OA, BPH, Hx of Nephrolithiasis, Morbid obesity, who presented to the ER with complaints of LE swelling and knee pain. Patient was admitted to the hospitalist service for further evaluation, treatment for his suspected congestive heart failure exacerbation. Decompensated Diastolic and Systolic CHF (EF: 30%) Patient continues to have improvement in his lower extremity swelling ECHO 09/24: EF: 30-35%, Bioprosthetic AV, high CVP, severe biatrial enlargement, Duplex US 09/22: There is no ultrasonographic evidence of deep venous thrombosis involving any of the visualized deep venous structures of the right and left thigh, as described above. c/w Strict ins/outs , fluid restriction 2L / Day. c/w Torsemide 60 bid Bilateral knee pain (L > R) - likely 2/2 gout flare / OA XR Knee 09/22: Degenerative and osteoarthritic changes. Vascular calcification. Evidence of joint effusion on the left as a new finding. XR Ankle 09/22: Osteoarthritic changes. Advanced vascular calcification. Diffuse swelling. Heel spurs. No acute bony abnormality. Patient has had his L knee joint aspirated and corticosteroids injected (09/26) with Orthopedic surgery c/w Prednisone at home dose , oxycodone, gabapentin, tylenol Orthopedic surgery on consult; Dr. Byrne Pain management has been on consultation Left elbow drainage - likely 2/2 gout tophi Patient has reported that he has been putting his weight on his elbow Area appears to be draining white output L elbow culture 09/24: Staph aureus, Staph Sp Coag Neg L Elbow XR 09/26: No fracture noted. Olecranon soft tissue swelling and dyst rophic soft-tissue calcification. Vascular calcification. Mild proximal ulnar spurring. finished 15 days of antibiotics. c/w Daily dressing changes Leukocytosis - possibly 2/2 corticosteroids resolved. DAVID does not have CPAP was advised CPAP but did not like it so never used it. Nocturnal oxygen supplementation during sleep. Hx of A. 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 Patient has had intervention at [facility] Has been on Augmentin as an outpatient; was switched to Unasyn when he was admitted then got Augmentin again total 15 days here and more before admission CAD s/p CABG c/w ASA, Atorvastatin, Losartan s/p Hematuria - possibly 2/2 Staghorn Stone Extraction has been scheduled for 10/03/2018 in [place] Discussed with urology office in [place]; patient was tentatively scheduled for a percutaneous nephrostomy with resection of staggering calculus Discussed with in house Urology about performing procedure at [facility]; currently we are not capable of performing percutaneous nephrostomies Will have outpatient procedure rescheduled Peripheral neuropathy / Hx of Lumbar Spinal stenosis c/w Gabapentin Depression c/w Sertraline, temazepam BPH Currently not on medications Morbid obesity Complicating medical care Topheceous Gout - likely with acute flare c/w Prednisone and Febuxostat Multiple areas of tophi seen CKD3 - Cr appears to be at baseline hyperlipidemia continue statin DVT prophylaxis c/w full anticoagulation with Coumadin Disposition: Continue with physical therapy / occupational therapy. needs clearance. A-FIB/CHADSVASC A-FIB History Current/History of A-Fib/PAF?: Yes Current Oral Anticoagulant The: Yes VS,Fishbone, I+O VS, Fishbone, I+O Vital Signs Date Time Temp Pulse Resp B/P (MAP) Pulse Ox O2 Delivery O2 Flow Rate FiO2 10/07/18 12:19 18 10/07/18 09:06 120/60 10/07/18 06:00 97.8 85 96 10/06/18 06:00 2.0 I&O- Last 24 Hours up to 6 AM 10/07/18 06:00 Intake Total 1200 ml Output Total 2200 ml Balance -1000 ml ALCIDES RATLIFF MD October 07, 2018 12:30
[2018-10-07 14:00] VITALS: BP 101/53
--- NOTE | 2018-10-07 15:49 | IPN ---
DATE: 10/07/2018 I was asked to reevaluate the patient. I saw him a couple weeks ago for a swollen painful left knee that I aspirated and injected with cortisone and he is feeling significantly better with his left knee. His left elbow has had this drainage of what appears to be gouty tophus material. It previously had been more of an open wound and he attributes it to having to put a lot of pressure on his elbows at home to get out of bed, but he says it is feeling and looking much better. He is on Augmentin right now. There is an anticipated discharge over the next couple of days I am told. On exam, his left knee demonstrates only mild effusion. There is no redness. No tenderness or irritability. He is much more comfortable. His left elbow has good range of motion. He now has approximately four very small, pin-sized openings around the olecranon with a small amount of what appears to be gouty tophus material there. He previously had a single 4-mm opening and I do think this is actually healing. He agrees that he is not putting as much pressure on his elbows. We talked about the options. We could consider surgical treatment of this such as opening up in the olecranon and debriding out the tophus material. However, I am pretty concerned that he would have a hard time healing his skin with his multiple medical problems and diabetes, etc. We may end up making this worse. The patient does agree that he is feeling better with his elbow and has less drainage. In addition, he would be a pretty high risk. He is on Coumadin as well, which would likely have to be stopped for a period of time before surgical treatment could be done. My recommendation would be to continue to observe this, keep padded occlusive dressings over the elbows, have him minimize the pressure that he is putting on his elbows, and followup with his orthopedist in [place] where he has been seen before for other issues. Certainly we can see him here if that would be more convenient for him. I would recommend followup in approximately a week to see if he continues to heal these. Of note, he is afebrile. His white count has been running right around 10. C-reactive protein (CRP) has not been checked in a few days but it was most recently 6.94 and the patient does have multiple reasons why this would be elevated. If his condition changes for the worse, please let us know, and again, would recommend followup with an orthopedist in the next week or so either close to home or at our office.
[2018-10-07] MEDS: WARFARIN SOD 3 MG TAB PO SCH (17:11)
[2018-10-07] MEDS: glipiZIDE (GLUCOTROL) 5 MG TAB PO SCH (17:11)
[2018-10-07] MEDS: TEMAZEPAM 15 MG CAP PO SCH (21:27)
[2018-10-07 22:00] VITALS: BP 101/61
[2018-10-08 06:00] VITALS: BP 120/61
[2018-10-08 07:35] LABS: BASO % 0.2 % (0.0-1.0); EOS % 0.2 % (0.0-3.0); HEMATOCRIT 40.1 % (42.0-52.0); HEMOGLOBIN 12.1 g/dl (13.5-17.5); LYMPH # 2.1 10^3/uL (1.5-4.5); LYMPH % 17.5 % (24.0-44.0); MEAN CORPUSCULAR HEMOGLOBIN 25.6 pg (27.0-33.0); MEAN CORPUSCULAR HGB CONC 30.2 g/dl (32.0-36.5); MEAN CORPUSCULAR VOLUME 84.8 fl (80.0-96.0); MONO # 0.8 10^3/uL (0.0-0.8); MONO % 6.2 % (0.0-5.0); NEUTROPHILS # 9.1 10^3/uL (1.8-7.7); NEUTROPHILS % 75.5 % (36.0-66.0); PLATELET COUNT, AUTOMATED 228 10^3/uL (150-450); RED BLOOD COUNT 4.73 10^6/uL (4.30-6.10)
[2018-10-08 08:01] LABS: BLOOD UREA NITROGEN 31 MG/DL (7-18); CARBON DIOXIDE LEVEL 29 MEQ/L (21-32); CHLORIDE LEVEL 107 MEQ/L (98-107); CREATININE FOR GFR 0.87 MG/DL (0.70-1.30); GLOMERULAR FILTRATION RATE > 60.0 (>49); GLUCOSE, FASTING 168 MG/DL (70-100); POTASSIUM SERUM 3.5 MEQ/L (3.5-5.1); SODIUM LEVEL 141 MEQ/L (136-145)
[2018-10-08] MEDS: predniSONE 10 MG TAB PO SCH ×2 (08:13→20:48)
[2018-10-08] MEDS: AUGMENTIN 875 MG TAB PO SCH ×2 (08:13→20:48)
[2018-10-08] MEDS: SERTRALINE HCL 50 MG TAB PO SCH (08:13)
[2018-10-08] MEDS: LOSARTAN 25 MG TAB PO SCH (08:13)
[2018-10-08] MEDS: FEBUXOSTAT 40 MG TABLET (ULORIC) PO SCH (08:13)
[2018-10-08] MEDS: ASPIRIN 81 MG CHEW TABLET PO SCH (08:13)
[2018-10-08] MEDS: TORSEMIDE 20 MG TAB PO SCH ×2 (08:13→17:40)
[2018-10-08] MEDS: ATORVASTATIN 20 MG TAB PO SCH (08:13)
[2018-10-08] MEDS: GABAPENTIN 300 MG CAP PO SCH ×2 (08:13→20:48)
[2018-10-08] MEDS: POTASSIUM CHLORIDE 10 MEQ SR TABLET PO SCH (08:14)
[2018-10-08] MEDS: LEVEMIR (INSULIN DETEMIR) 1 UNITS/0.01ML SC SCH ×2 (08:14→21:55)
[2018-10-08] MEDS: HumaLOG INSULIN (NovoLOG) PER UNIT SC SCH ×4 (08:15→21:00)
--- NOTE | 2018-10-08 12:05 | IPNPDOC ---
Text Note Date of Service The patient was seen on 10/08/18. NOTE Subjective: Patient was seen and examined at the bedside. His left knee pain is well-controlled with good range of motion. However since yesterday the back of his right knee has been really bothering him. He cannot bend his right knee today . Denies chest pain, shortness of breath. Denies palpitations or cough. Denies nausea, vomiting or abdominal pain. Reports regular bowel movements. His leg swelling is improving. He is working with PT with steady improvements. He continues to have discharge white creamy substance from pin point openings on the left elbow. Objective: Vitals (See below) General: Lying in bed, no acute distress, comfortable, AAOx3, morbidly obese. HEENT: NC, AT CVS: RRR, +S1S2, No rub, murumur or gallop Lungs: Air entry is fair bilaterally, No wheezing, rhonchi or rales Abdomen: Abdomen is soft. No evidence of distention/tenderness Extremities: There is still at least 1+ pitting edema bilaterally now mostly on dorsum of the feet. Left elbow with gouty discharge. 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 Labs and Radiology: reviewed. Assessment and plan: Patient is a 63-year-old male with a PMHx of CAD s/p CABG, Systolic CHF 2/2 ischemic cardiomyopathy, Hx Bioprosthetic AVR, A. fib (on Coumadin), Hx of Dual chamber PM, HTN, DLP, DM2, DAVID not on CPAP, CKD3, Gout (on Prednisone), OA, BPH, Hx of Nephrolithiasis, Morbid obesity, who presented to the ER with complaints of LE swelling and knee pain. Patient was admitted to the hospitalist service for further evaluation, treatment for his suspected congestive heart failure exacerbation. Decompensated Diastolic and Systolic CHF (EF: 30%) Patient continues to have improvement in his lower extremity swelling ECHO 09/24: EF: 30-35%, Bioprosthetic AV, high CVP, severe biatrial enlargement, Duplex US 09/22: There is no ultrasonographic evidence of deep venous thrombosis involving any of the visualized deep venous structures of the right and left thigh, as described above. c/w Strict ins/outs , fluid restriction 2L / Day. c/w Torsemide 60 bid Bilateral knee pain (L > R) - likely 2/2 gout flare / OA XR Knee 09/22: Degenerative and osteoarthritic changes. Vascular calcification. Evidence of joint effusion on the left as a new finding. XR Ankle 09/22: Osteoarthritic changes. Advanced vascular calcification. Diffuse swelling. Heel spurs. No acute bony abnormality. Patient has had his L knee joint aspirated and corticosteroids injected (09/26) with Orthopedic surgery c/w Prednisone at home dose , oxycodone, gabapentin, tylenol Orthopedic surgery on consult; Dr. Byrne Pain management has been on consultation Left elbow drainage - likely 2/2 gout tophi Patient has reported that he has been putting his weight on his elbow Area appears to be draining white output L elbow culture 09/24: Staph aureus, Staph Sp Coag Neg L Elbow XR 09/26: No fracture noted. Olecranon soft tissue swelling and dystrophic soft-tissue calcification. Vascular calcification. Mild proximal ulnar spurring. finished 15 days of antibiotics. c/w Daily dressing changes Leukocytosis - possibly 2/2 corticosteroids resolved. DAVID does not have CPAP was advised CPAP but did not like it so never used it. Nocturnal oxygen supplementation during sleep. Morbid obesity complicating care. Hx of A. 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 Patient has had intervention at [facility] Has been on Augmentin as an outpatient; was switched to Unasyn when he was admitted then got Augmentin again total 15 days here and more before admission CAD s/p CABG c/w ASA, Atorvastatin, Losartan s/p Hematuria - possibly 2/2 Staghorn Stone Extraction has been scheduled for 10/03/2018 in [place] Discussed with urology office in [place]; patient was tentatively scheduled for a percutaneous nephrostomy with resection of staggering calculus Discussed with in house Urology about performing procedure at [facility]; currently we are not capable of performing percutaneous nephrostomies Will have outpatient procedure rescheduled Peripheral neuropathy / Hx of Lumbar Spinal stenosis c/w Gabapentin Depression c/w Sertraline, temazepam BPH Currently not on medications Morbid obesity Complicating medical care Topheceous Gout - likely with acute flare c/w Prednisone and Febuxostat Multiple areas of tophi seen CKD3 - Cr appears to be at baseline Hyperlipidemia continue statin DVT prophylaxis c/w full anticoagulation with Coumadin Disposition: Continue with physical therapy / occupational therapy. needs clearance. A-FIB/CHADSVASC A-FIB History Current/History of A-Fib/PAF?: Yes Current Oral Anticoagulant The: Yes VS,Fishbone, I+O VS, Fishbone, I+O Laboratory Tests 10/08/18 07:15 Red Blood Count 4.73, Mean Corpuscular Volume 84.8, Mean Corpuscular Hemoglobin 25.6 L, Mean Corpuscular Hemoglobin Concent 30.2 L, Red Cell Distribution Width 16.9 H, Neutrophils (%) (Auto) 75.5 H, Lymphocytes (%) (Auto) 17.5 L, Monocytes (%) (Auto) 6.2 H, Eosinophils (%) (Auto) 0.2, Basophils (%) (Auto) 0.2, Neutrophils # (Auto) 9.1 H, Lymphocytes # (Auto) 2.1, Monocytes # (Auto) 0.8, Eosinophils # (Auto) 0.0, Basophils # (Auto) 0.0, Calcium Level 9.0 Vital Signs Date Time Temp Pulse Resp B/P (MAP) Pulse Ox O2 Delivery O2 Flow Rate FiO2 10/08/18 08:13 120/61 10/08/18 07:10 18 10/08/18 06:00 97.5 82 96 10/06/18 06:00 2.0 I&O- Last 24 Hours up to 6 AM 10/08/18 06:00 Intake Total 2040 ml Output Total 2350 ml Balance -310 ml ALCIDES RATLIFF MD October 08, 2018 12:05
[2018-10-08] MEDS: ACETAMINOPHEN 650MG ER TAB (TYLENOL ARTHRITIS) PO PRN (12:50)
[2018-10-08] MEDS: oxyCODONE 5MG TAB PO PRN ×2 (12:53→20:49)
[2018-10-08 14:00] VITALS: BP 101/57
[2018-10-08] MEDS: glipiZIDE (GLUCOTROL) 5 MG TAB PO SCH (17:39)
[2018-10-08] MEDS: WARFARIN SOD 3 MG TAB PO SCH (17:39)
[2018-10-08] MEDS: TEMAZEPAM 15 MG CAP PO SCH (21:55)
[2018-10-08 22:00] VITALS: BP 134/58
[2018-10-09] MEDS: oxyCODONE 5MG TAB PO PRN ×3 (05:09→19:12)
[2018-10-09 06:00] VITALS: BP 133/63
[2018-10-09] MEDS: ACETAMINOPHEN 650MG ER TAB (TYLENOL ARTHRITIS) PO PRN ×2 (06:37→22:12)
[2018-10-09] MEDS: HumaLOG INSULIN (NovoLOG) PER UNIT SC SCH ×4 (09:13→21:00)
[2018-10-09] MEDS: LEVEMIR (INSULIN DETEMIR) 1 UNITS/0.01ML SC SCH ×2 (09:14→22:02)
[2018-10-09] MEDS: POTASSIUM CHLORIDE 10 MEQ SR TABLET PO SCH (09:14)
[2018-10-09] MEDS: LOSARTAN 25 MG TAB PO SCH (09:14)
[2018-10-09] MEDS: GABAPENTIN 300 MG CAP PO SCH ×2 (09:14→22:01)
[2018-10-09] MEDS: TORSEMIDE 20 MG TAB PO SCH ×2 (09:15→18:11)
[2018-10-09] MEDS: FEBUXOSTAT 40 MG TABLET (ULORIC) PO SCH (09:15)
[2018-10-09] MEDS: AUGMENTIN 875 MG TAB PO SCH (09:15)
[2018-10-09] MEDS: predniSONE 10 MG TAB PO SCH ×2 (09:15→22:01)
[2018-10-09] MEDS: ASPIRIN 81 MG CHEW TABLET PO SCH (09:15)
[2018-10-09] MEDS: ATORVASTATIN 20 MG TAB PO SCH (09:15)
[2018-10-09] MEDS: SERTRALINE HCL 50 MG TAB PO SCH (09:16)
--- NOTE | 2018-10-09 12:19 | IPNPDOC ---
Text Note Date of Service The patient was seen on 10/09/18. NOTE Subjective: Patient was seen and examined at the bedside. His left knee pain is well-controlled with good range of motion. His right knee pain from yesterday is much better but now says the pain has moved to his right ankle. He cannot bear weight at all on his right foot. Bilateral ankle xrays showed bilateral advanced osteoarthritis changes and bilateral achilis and calcaneal spurs. D enies chest pain, shortness of breath. Denies palpitations or cough. Denies nausea, vomiting or abdominal pain. Reports regular bowel movements. His leg swelling is improving. He is working with PT with steady improvements. He continues to have discharge white creamy substance from pin point openings on the left elbow. Objective: Vitals (See below) General: Lying in bed, no acute distress, comfortable, AAOx3, morbidly obese. HEENT: NC, AT CVS: RRR, +S1S2, No rub, murumur or gallop Lungs: Air entry is fair bilaterally, No wheezing, rhonchi or rales Abdomen: Abdomen is soft. No evidence of distention/tenderness Extremities: There is still at least 1+ pitting edema bilaterally now mostly on dorsum of the feet. Left elbow with gouty discharge. 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 Labs and Radiology: reviewed. Assessment and plan: Patient is a 63-year-old male with a PMHx of CAD s/p CABG, Systolic CHF 2/2 ischemic cardiomyopathy, Hx Bioprosthetic AVR, A. fib (on Coumadin), Hx of Dual chamber PM, HTN, DLP, DM2, DAVID not on CPAP, CKD3, Gout (on Prednisone), OA, BPH, Hx of Nephrolithiasis, Morbid obesity, who presented to the ER with complaints of LE swelling and knee pain. Patient was admitted to the hospitalist service for further evaluation, treatment for his suspected congestive heart failure exacerbation. Decompensated Diastolic and Systolic CHF (EF: 30%) Patient continues to have improvement in his lower extremity swelling ECHO 09/24: EF: 30-35%, Bioprosthetic AV, high CVP, severe biatrial enlargement, Duplex US 09/22: There is no ultrasonographic evidence of deep venous thrombosis involving any of the visualized deep venous structures of the right and left thigh, as described above. c/w Strict ins/outs , fluid restriction 2L / Day. c/w Torsemide 60 bid Bilateral knee pain/ ankle pain Has advanced OA in both the knees and ankles and also had a gout flare. XR Knee 09/22: Degenerative and osteoarthritic changes. Vascular calcification. Evidence of joint effusion on the left as a new finding. XR Ankle 09/22: Osteoarthritic changes. Advanced vascular calcification. Diffuse swelling. Heel spurs. No acute bony abnormality. Patient has had his L knee joint aspirated and corticosteroids injected (09/26) with Orthopedic surgery c/w Prednisone at home dose , oxycodone, gabapentin, tylenol Orthopedic surgery on consult; Dr. Byrne Pain management has been on consultation Left elbow drainage - likely 2/2 gout tophi Patient has reported that he has been putting his weight on his elbow Area appears to be draining white output L elbow culture 09/24: Staph aureus, Staph Sp Coag Neg L Elbow XR 09/26: No fracture noted. Olecranon soft tissue swelling and dystrophic soft-tissue calcification. Vascular calcification. Mild proximal ulnar spurring. finished 15 days of antibiotics. c/w Daily dressing changes Leukocytosis - possibly 2/2 corticosteroids, pain DAVID does not have CPAP was advised CPAP but did not like it so never used it. Nocturnal oxygen supplementation during sleep. Morbid obesity complicating care. Hx of A. 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 Patient has had intervention at [facility] Has been on Augmentin as an outpatient; was switched to Unasyn when he was admitted then got Augmentin again total 15 days here and more before admission CAD s/p CABG c/w ASA, Atorvastatin, Losartan s/p Hematuria - possibly 2/2 Staghorn Stone Extraction has been scheduled for 10/03/2018 in [place] Discussed with urology office in [place]; patient was tentatively scheduled for a percutaneous nephrostomy with resection of staggering calculus Discussed with in house Urology about performing procedure at [facility]; currently we are not capable of performing percutaneous nephrostomies Will have outpatient procedure rescheduled Peripheral neuropathy / Hx of Lumbar Spinal stenosis c/w Gabapentin Depression c/w Sertraline, temazepam BPH Currently not on medications Morbid obesity Complicating medical care Topheceous Gout - likely with acute flare c/w Prednisone and Febuxostat Multiple areas of tophi seen CKD3 - Cr appears to be at baseline Hyperlipidemia continue statin DVT prophylaxis c/w full anticoagulation with Coumadin Disposition: Continue with physical therapy / occupational therapy. needs clearance. A-FIB/CHADSVASC A-FIB History Current/History of A-Fib/PAF?: Yes Current Oral Anticoagulant The: Yes VS,Fishbone, I+O VS, Fishbone, I+O Vital Signs Date Time Temp Pulse Resp B/P (MAP) Pulse Ox O2 Delivery O2 Flow Rate FiO2 10/09/18 12:07 18 10/09/18 09:14 133/63 10/09/18 06:00 96.9 80 94 10/06/18 06:00 2.0 I&O- Last 24 Hours up to 6 AM 10/09/18 06:00 Intake Total 1800 ml Output Total 3015 ml Balance -1215 ml ALCIDES RATLIFF MD October 09, 2018 12:19
[2018-10-09 14:00] VITALS: BP 129/52
--- NOTE | 2018-10-09 17:08 | CR ---
DATE OF CONSULTATION: 10/09/2018 INDICATION: Right ankle pain. HISTORY OF PRESENT ILLNESS: Mr. Buchanan is a 63-year-old gentleman that has been hospitalized for a congestive heart failure (CHF) exacerbation. He has had polyarthralgias. 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 He has had intermittent ankle pain in the past, but really last night and this morning started have worsening ankle pain, difficulty bearing weight. He has pain moving his foot up and down. He denies having gout in his ankle before. For the patient's full past medical history, past surgical history, medications, allergies, social history and review of systems, please see admitting history and physical (H and P) by the hospitalist, which I personally reviewed. PHYSICAL EXAMINATION: Reveals a gentleman in no distress. He is alert and times three. NEUROLOGIC: Appropriate mood, pleasant affect. CARDIOVASCULAR: 1+ dorsalis pedis (DP) pulse. PULMONARY: Nonlabored breathing. SKIN: The right ankle is intact without open lesions. MUSCULOSKELETAL: There is moderate diffuse swelling of the right ankle. There are no areas of fluctuance. No signs of fluid collections. There is zero erythema or any clinical concern for cellulitis. Maximal areas of tenderness include the anterior ankle joint and the lateral aspect of the mid foot and hind foot. He has a severely limited range of motion arc in the ankle due to pain. He can fire extensor hallucis longus (EHL) and flexor hallucis longus (FHL). Sensation to light touch in the foot is grossly intact. Calf is soft. X-rays of the right ankle previously obtained revealed extensive vascular calcification, mild to moderate arthritic changes of the tibiotalar joint. ASSESSMENT AND PLAN: Mr. Buchanan is a 63-year-old gentleman with migratory polyarthralgia. This is most likely due to gout. That being said, he does have a clinical enough exam with severely restricted range of motion due to pain that I cannot exclude septic arthritis. Since there is no erythema to worry about, I have offered to proceed with an aspiration of the ankle joint so we can definitively rule out a septic arthritis. He did have an elevated C-reactive protein earlier in the week. Alternatively, he if was against the injection, we could get a CAT scan since he cannot get MRIs due to pacemaker, then we could use the CAT scan to see if there is an effusion are not and then decide on an aspiration from there. His preference is just to move forward with the aspiration and be done with it. The risks and benefits of right ankle arthrocentesis were discussed with the patient and written informed consent was obtained. I first marked the right ankle and sterilely prepped with Betadine. Using sterile gloves I then used an #18 gauge needle, 10 mL syringe to perform an aspiration just medial to the tibialis anterior tendon. The needle was sunk into the joint and I then aspirated, but did not get any fluid. The needle was redirected and still no fluid. This was consistent with a dry tap. The ankle was then cleaned and a sterile dressing with LEDY bandage applied. Given that the overall clinical picture for septic arthritis is fairly low and there is a dry tap, I am comfortable with this being treated as a gout flare. I would recommend an increase in the patient's prednisone for the next one or two doses only if the hospitalist thinks that is medically reasonable, as he does have considerable medical problems. I also recommend repeating the erythrocyte sedimentation rate and C-reactive protein (CRP). If the patient's ankle pain does not respond to an increasing dose of prednisone and the inflammatory markers remain elevated, I then recommend obtaining a CAT scan of the right ankle without IV contrast to evaluate for an effusion. If it does show an effusion, then he should have an image guided ankle aspiration, with that fluid sent off for cell count, crystals, culture and sensitivities. That can be done by interventional radiology (IR). The patient fully understands the plan. We also put in an order for him to have his ankle iced. All his questions were also answered to his satisfaction.
[2018-10-09] MEDS: glipiZIDE (GLUCOTROL) 5 MG TAB PO SCH (18:11)
[2018-10-09] MEDS: WARFARIN SOD 3 MG TAB PO SCH (18:11)
[2018-10-09 22:00] VITALS: BP 114/72
[2018-10-09] MEDS: TEMAZEPAM 15 MG CAP PO SCH (22:01)
[2018-10-10] MEDS: oxyCODONE 5MG TAB PO PRN ×3 (02:23→17:34)
[2018-10-10 06:00] VITALS: BP 121/67
[2018-10-10 06:46] LABS: HEMATOCRIT 36.8 % (42.0-52.0); HEMOGLOBIN 11.3 g/dl (13.5-17.5); MEAN CORPUSCULAR HGB CONC 30.7 g/dl (32.0-36.5); MEAN CORPUSCULAR VOLUME 84.8 fl (80.0-96.0); PLATELET COUNT, AUTOMATED 213 10^3/uL (150-450); RED BLOOD COUNT 4.34 10^6/uL (4.30-6.10); WHITE BLOOD COUNT 10.2 10^3/uL (4.0-10.0)
[2018-10-10 07:10] LABS: BLOOD UREA NITROGEN 28 MG/DL (7-18); CALCIUM LEVEL 8.8 MG/DL (8.8-10.2); CARBON DIOXIDE LEVEL 26 MEQ/L (21-32); CHLORIDE LEVEL 105 MEQ/L (98-107); CREATININE FOR GFR 0.78 MG/DL (0.70-1.30); GLOMERULAR FILTRATION RATE > 60.0 (>49); GLUCOSE, FASTING 131 MG/DL (70-100); POTASSIUM SERUM 3.2 MEQ/L (3.5-5.1); SODIUM LEVEL 138 MEQ/L (136-145)
[2018-10-10 07:13] LABS: ERYTHROCYTE SEDIMENTATION RATE 83 mm/hr (0-20)
[2018-10-10] MEDS: HumaLOG INSULIN (NovoLOG) PER UNIT SC SCH ×4 (07:30→20:49)
[2018-10-10] MEDS ORDERED: POTASSIUM CHLORIDE 10 MEQ SR TABLET PO ONE (07:30)
[2018-10-10] MEDS ORDERED: COLCHICINE 0.6 MG TAB PO ONE (07:45)
[2018-10-10] MEDS: TORSEMIDE 20 MG TAB PO SCH ×2 (08:45→17:33)
[2018-10-10] MEDS: SERTRALINE HCL 50 MG TAB PO SCH (08:46)
[2018-10-10] MEDS: predniSONE 20 MG TAB PO SCH (08:46)
[2018-10-10] MEDS: LOSARTAN 25 MG TAB PO SCH (08:46)
[2018-10-10] MEDS: FEBUXOSTAT 40 MG TABLET (ULORIC) PO SCH (08:46)
[2018-10-10] MEDS: ASPIRIN 81 MG CHEW TABLET PO SCH (08:46)
[2018-10-10] MEDS: ATORVASTATIN 20 MG TAB PO SCH (08:47)
[2018-10-10] MEDS: LEVEMIR (INSULIN DETEMIR) 1 UNITS/0.01ML SC SCH ×2 (08:47→20:48)
[2018-10-10] MEDS: GABAPENTIN 300 MG CAP PO SCH ×2 (08:47→20:48)
--- NOTE | 2018-10-10 11:42 | IPNPDOC ---
Text Note Date of Service The patient was seen on 10/10/18. NOTE Subjective: Patient was seen and examined at the bedside. His left knee pain is well-controlled with good range of motion. His right knee pain is much better but his right ankle is still bothering him. [place] tapped his ankle yesterday but it was a dry tap. He cannot bear weight at all on his right foot still. Seems like he is having migratory polyarthropathy. Bilateral ankle xrays showed bilateral advanced osteoarthritis changes and bilateral Achillis and calcaneal spurs. Denies chest pain, shortness of breath. Denies palpitations or cough. Denies nausea, vomiting or abdominal pain. Reports regular bowel movements. His leg swelling is improving. He is working with PT with steady improvements. He continues to have discharge white creamy substance from pin point openings on the left elbow. Objective: Vitals (See below) General: Lying in bed, no acute distress, comfortable, AAOx3, morbidly obese. HEENT: NC, AT CVS: RRR, +S1S2, No rub, murumur or gallop Lungs: Air entry is fair bilaterally, No wheezing, rhonchi or rales Abdomen: Abdomen is soft. No evidence of distention/tenderness Extremities: There is still at least 1+ pitting edema bilaterally now mostly on dorsum of the feet. Left elbow with gouty discharge. 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 Labs and Radiology: reviewed. Assessment and plan: Patient is a 63-year-old male with a PMHx of CAD s/p CABG, Systolic CHF 2/2 ischemic cardiomyopathy, Hx Bioprosthetic AVR, A. fib (on Coumadin), Hx of Dual chamber PM, HTN, DLP, DM2, DAVID not on CPAP, CKD3, Gout (on Prednisone), OA, BPH, Hx of Nephrolithiasis, Morbid obesity, who presented to the ER with complaints of LE swelling and knee pain. Patient was admitted to the hospitalist service for further evaluation, treatment for his suspected congestive heart failure exacerbation. Migratory polyarthopathy Topheceous Gout - likely with acute flare CRP has increased Had right ankle tapped on 10/09 which was a dry tap. will increase prednisone to 40 mg daily and give colchicine 1.2 mg patient already on uloric. Bilateral knee pain/ ankle pain Has advanced OA in both the knees and ankles and also had a gout flare. XR Knee 09/22: Degenerative and osteoarthritic changes. Vascular calcification. Evidence of joint effusion on the left as a new finding. XR Ankle 09/22: Osteoarthritic changes. Advanced vascular calcification. Diffuse swelling. Heel spurs. No acute bony abnormality. Patient has had his L knee joint aspirated and corticosteroids injected (09/26) with Orthopedic surgery c/w Prednisone at home dose , oxycodone, gabapentin, tylenol Orthopedic surgery on consult; Dr. Byrne, Dr Ricci Pain management has been on consultation Decompensated Diastolic and Systolic CHF (EF: 30%) Patient continues to have improvement in his lower extremity swelling ECHO 09/24: EF: 30-35%, Bioprosthetic AV, high CVP, severe biatrial enlargement, Duplex US 09/22: There is no ultrasonographic evidence of deep venous thrombosis involving any of the visualized deep venous structures of the right and left t high, as described above. c/w Strict ins/outs , fluid restriction 2L / Day. c/w Torsemide 60 bid Left elbow drainage - likely 2/2 gout tophi Patient has reported that he has been putting his weight on his elbow Area appears to be draining white output L elbow culture 09/24: Staph aureus, Staph Sp Coag Neg L Elbow XR 09/26: No fracture noted. Olecranon soft tissue swelling and dystrophic soft-tissue calcification. Vascular calcification. Mild proximal ulnar spurring. finished 15 days of antibiotics. c/w Daily dressing changes Leukocytosis - inflammation possibly 2/2 corticosteroids, pain , acute gout flare. DAVID does not have CPAP was advised CPAP but did not like it so never used it. Nocturnal oxygen supplementation during sleep. Morbid obesity complicating care. Hx of A. 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 Patient has had intervention at [facility] Has been on Augmentin as an outpatient; was switched to Unasyn when he was admitted then got Augmentin again total 15 days here and more before admission CAD s/p CABG c/w ASA, Atorvastatin, Losartan s/p Hematuria - possibly 2/2 Staghorn Stone Extraction has been scheduled for 10/03/2018 in [place] Discussed with urology office in [place]; patient was tentatively scheduled for a percutaneous nephrostomy with resection of staggering calculus Discussed with in house Urology about performing procedure at [facility]; currently we are not capable of performing percutaneous nephrostomies Will have outpatient procedure rescheduled Peripheral neuropathy / Hx of Lumbar Spinal stenosis c/w Gabapentin Depression c/w Sertraline, temazepam BPH Currently not on medications Morbid obesity Complicating medical care CKD3 - Cr appears to be at baseline Hyperlipidemia continue statin DVT prophylaxis c/w full anticoagulation with Coumadin Disposition: Continue with physical therapy / occupational therapy. needs clearance. VS,Fishbone, I+O VS, Fishbone, I+O Laboratory Tests 10/10/18 06:07 Red Blood Count 4.34, Mean Corpuscular Volume 84.8, Mean Corpuscular Hemoglobin 26.0 L, Mean Corpuscular Hemoglobin Concent 30.7 L, Red Cell Distribution Width 17.0 H, Calcium Level 8.8 Vital Signs Date Time Temp Pulse Resp B/P (MAP) Pulse Ox O2 Delivery O2 Flow Rate FiO2 10/10/18 08:57 16 10/10/18 08:46 121/67 10/10/18 06:00 97.0 80 97 2.0 I&O- Last 24 Hours up to 6 AM 10/10/18 06:00 Intake Total 960 ml Output Total 2950 ml Balance -1990 ml ALCIDES RATLIFF MD October 10, 2018 11:42
[2018-10-10] MEDS: POTASSIUM CHLORIDE 10 MEQ SR TABLET PO SCH (11:59)
[2018-10-10] MEDS: ACETAMINOPHEN 650MG ER TAB (TYLENOL ARTHRITIS) PO PRN ×2 (12:54→22:06)
[2018-10-10 14:00] VITALS: BP 134/62
[2018-10-10] MEDS: WARFARIN SOD 3 MG TAB PO SCH (17:33)
[2018-10-10] MEDS: glipiZIDE (GLUCOTROL) 5 MG TAB PO SCH (17:33)
[2018-10-10] MEDS: TEMAZEPAM 15 MG CAP PO SCH (20:48)
[2018-10-10 22:00] VITALS: BP 111/60
[2018-10-11] MEDS: oxyCODONE 5MG TAB PO PRN ×3 (02:15→21:36)
[2018-10-11 06:00] VITALS: BP 128/62
[2018-10-11] MEDS: ACETAMINOPHEN 650MG ER TAB (TYLENOL ARTHRITIS) PO PRN (08:07)
[2018-10-11] MEDS: TORSEMIDE 20 MG TAB PO SCH ×2 (08:07→17:27)
[2018-10-11] MEDS: POTASSIUM CHLORIDE 10 MEQ SR TABLET PO SCH (08:07)
[2018-10-11] MEDS: predniSONE 20 MG TAB PO SCH (08:07)
[2018-10-11] MEDS: ATORVASTATIN 20 MG TAB PO SCH (08:08)
[2018-10-11] MEDS: GABAPENTIN 300 MG CAP PO SCH ×2 (08:08→21:34)
[2018-10-11] MEDS: SERTRALINE HCL 50 MG TAB PO SCH (08:08)
[2018-10-11] MEDS: ASPIRIN 81 MG CHEW TABLET PO SCH (08:08)
[2018-10-11] MEDS: LOSARTAN 25 MG TAB PO SCH (08:08)
[2018-10-11] MEDS: FEBUXOSTAT 40 MG TABLET (ULORIC) PO SCH (08:08)
[2018-10-11] MEDS: LEVEMIR (INSULIN DETEMIR) 1 UNITS/0.01ML SC SCH ×2 (08:09→21:00)
[2018-10-11] MEDS: HumaLOG INSULIN (NovoLOG) PER UNIT SC SCH ×4 (08:09→21:36)
--- NOTE | 2018-10-11 11:00 | IPNPDOC ---
Text Note Date of Service The patient was seen on 10/11/18. NOTE Subjective: Patient was seen and examined at the bedside. His left knee pain is well-controlled with good range of motion. His right knee pain is much better but his right ankle is still bothering him. Seems like he is having migratory polyarthropathy. He is able to bear weight on it today. Denies chest pain, shortness of breath. Denies palpitations or cough. Denies nausea, vomiting or abdominal pain. Reports regular bowel movements. His leg swelling is improving. He is working with PT with steady improvements. He continues to have discharge white creamy substance from pin point openings on the left elbow. Objective: Vitals (See below) General: Lying in bed, no acute distress, comfortable, AAOx3, morbidly obese. HEENT: NC, AT CVS: RRR, +S1S2, No rub, murumur or gallop Lungs: Air entry is fair bilaterally, No wheezing, rhonchi or rales Abdomen: Abdomen is soft. No evidence of distention/tenderness Extremities: There is still at least 1+ pitting edema bilaterally now mostly on dorsum of the feet. Left elbow with gouty discharge. 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 Labs and Radiology: reviewed. Assessment and plan: Patient is a 63-year-old male with a PMHx of CAD s/p CABG, Systolic CHF 2/2 ischemic cardiomyopathy, Hx Bioprosthetic AVR, A. fib (on Coumadin), Hx of Dual chamber PM, HTN, DLP, DM2, DAVID not on CPAP, CKD3, Gout (on Prednisone), OA, BPH, Hx of Nephrolithiasis, Morbid obesity, who presented to the ER with complaints of LE swelling and knee pain. Patient was admitted to the hospitalist service for further evaluation, treatment for his suspected congestive heart failure exacerbation. Migratory polyarthopathy Topheceous Gout - likely with acute flare CRP has increased Had right ankle tapped on 10/09 which was a dry tap. will increase prednisone to 40 mg daily and give colchicine daily patient already on uloric. Chronic Bilateral knee pain/ ankle pain Has advanced OA in both the knees and ankles XR Knee 09/22: Degenerative and osteoarthritic changes. Vascular calcification. Evidence of joint effusion on the left as a new finding. XR Ankle 09/22: Osteoarthritic changes. Advanced vascular calcification. Diffuse swelling. Heel spurs. No acute bony abnormality. Patient has had his L knee joint aspirated and corticosteroids injected (09/26) with Orthopedic surgery c/w oxycodone, gabapentin, tylenol Orthopedic surgery on consult; Dr. Byrne, Dr Ricci Pain management has been on consultation Decompensated Diastolic and Systolic CHF (EF: 30%) Patient continues to have improvement in his lower extremity swelling ECHO 09/24: EF: 30-35%, Bioprosthetic AV, high CVP, severe biatrial enlargement, Duplex US 09/22: There is no ultrasonographic evidence of deep venous thrombosis involving any of the visualized deep venous structures of the right and left thigh, as described above. c/w Strict ins/outs , fluid restriction 2L / Day. c/w Torsemide 60 bid Left elbow drainage - likely 2/2 gout tophi Patient has reported that he has been putting his weight on his elbow Area appears to be draining white output L elbow culture 09/24: Staph aureus, Staph Sp Coag Neg L Elbow XR 09/26: No fracture noted. Olecranon soft tissue swelling and dystrophic soft-tissue calcification. Vascular calcification. Mild proximal ulnar spurring. finished 15 days of antibiotics. c/w Daily dressing changes Leukocytosis - inflammation possibly 2/2 corticosteroids, pain , acute gout flare. DAVID does not have CPAP was advised CPAP but did not like it so never used it. Nocturnal oxygen supplementation during sleep. Morbid obesity complicating care. Hx of A. 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 Patient has had intervention at [facility] Has been on Augmentin as an outpatient; was switched to Unasyn when he was admitted then got Augmentin again total 15 days here and more before admission CAD s/p CABG c/w ASA, Atorvastatin, Losartan s/p Hematuria - possibly 2/2 Staghorn Stone Extraction has been scheduled for 10/03/2018 in [place] Discussed with urology office in [place]; patient was tentatively scheduled for a percutaneous nephrostomy with resection of staggering calculus Discussed with in house Urology about performing procedure at [facility]; currently we are not capable of performing percutaneous nephrostomies Will have outpatient procedure rescheduled Peripheral neuropathy / Hx of Lumbar Spinal stenosis c/w Gabapentin Depression c/w Sertraline, temazepam BPH Currently not on medications Morbid obesity Complicating medical care CKD3 - Cr appears to be at baseline Hyperlipidemia continue statin DVT prophylaxis c/w full anticoagulation with Coumadin Disposition: Continue with physical therapy / occupational therapy. needs clearance. VS,Fishbone, I+O VS, Fishbone, I+O Vital Signs Date Time Temp Pulse Resp B/P (MAP) Pulse Ox O2 Delivery O2 Flow Rate FiO2 10/11/18 08:08 128/62 10/11/18 06:00 97.2 81 18 98 2.0 I&O- Last 24 Hours up to 6 AM 10/11/18 06:00 Intake Total 1020 ml Output Total 1600 ml Balance -580 ml ALCIDES RATLIFF MD October 11, 2018 10:41
[2018-10-11 14:00] VITALS: BP 124/68
[2018-10-11] MEDS: glipiZIDE (GLUCOTROL) 5 MG TAB PO SCH (17:27)
[2018-10-11] MEDS: WARFARIN SOD 3 MG TAB PO SCH (17:27)
[2018-10-11] MEDS: TEMAZEPAM 15 MG CAP PO SCH (21:35)
[2018-10-11 22:00] VITALS: BP 122/60
[2018-10-12] MEDS: ACETAMINOPHEN 650MG ER TAB (TYLENOL ARTHRITIS) PO PRN ×2 (05:17→13:58)
[2018-10-12 06:00] VITALS: BP 135/82
[2018-10-12] MEDS: HumaLOG INSULIN (NovoLOG) PER UNIT SC SCH ×2 (07:30→12:18)
[2018-10-12 07:42] LABS: BASO % 0.3 % (0.0-1.0); EOS # 0.1 10^3/uL (0.0-0.50); EOS % 0.9 % (0.0-3.0); HEMATOCRIT 36.2 % (42.0-52.0); LYMPH # 2.9 10^3/uL (1.5-4.5); MEAN CORPUSCULAR HEMOGLOBIN 25.1 pg (27.0-33.0); MEAN CORPUSCULAR HGB CONC 30.4 g/dl (32.0-36.5); MEAN CORPUSCULAR VOLUME 82.6 fl (80.0-96.0); MONO # 0.6 10^3/uL (0.0-0.8); MONO % 6.7 % (0.0-5.0); NEUTROPHILS # 5.6 10^3/uL (1.8-7.7); NEUTROPHILS % 60.6 % (36.0-66.0); PLATELET COUNT, AUTOMATED 211 10^3/uL (150-450); RED BLOOD COUNT 4.38 10^6/uL (4.30-6.10); WHITE BLOOD COUNT 9.3 10^3/uL (4.0-10.0)
[2018-10-12 08:13] LABS: BLOOD UREA NITROGEN 31 MG/DL (7-18); CALCIUM LEVEL 8.3 MG/DL (8.8-10.2); CARBON DIOXIDE LEVEL 29 MEQ/L (21-32); CHLORIDE LEVEL 107 MEQ/L (98-107); CREATININE FOR GFR 0.75 MG/DL (0.70-1.30); GLOMERULAR FILTRATION RATE > 60.0 (>49); GLUCOSE, FASTING 90 MG/DL (70-100); POTASSIUM SERUM 3.4 MEQ/L (3.5-5.1); SODIUM LEVEL 141 MEQ/L (136-145)
[2018-10-12] MEDS ORDERED: COLCHICINE 0.6 MG TAB PO SCH (09:00)
[2018-10-12] MEDS: ATORVASTATIN 20 MG TAB PO SCH (10:05)
[2018-10-12] MEDS: predniSONE 20 MG TAB PO SCH (10:06)
[2018-10-12] MEDS: GABAPENTIN 300 MG CAP PO SCH (10:06)
[2018-10-12] MEDS: SERTRALINE HCL 50 MG TAB PO SCH (10:06)
[2018-10-12] MEDS: ASPIRIN 81 MG CHEW TABLET PO SCH (10:06)
[2018-10-12 10:07] VITALS: BP 135/82
[2018-10-12] MEDS: LOSARTAN 25 MG TAB PO SCH (10:07)
[2018-10-12] MEDS: TORSEMIDE 20 MG TAB PO SCH (10:07)
[2018-10-12] MEDS: FEBUXOSTAT 40 MG TABLET (ULORIC) PO SCH (10:07)
[2018-10-12] MEDS: LEVEMIR (INSULIN DETEMIR) 1 UNITS/0.01ML SC SCH (10:08)
[2018-10-12] MEDS: POTASSIUM CHLORIDE 10 MEQ SR TABLET PO SCH (10:08)
[2018-10-12] MEDS: oxyCODONE 5MG TAB PO PRN ×2 (10:17→15:45)
[2018-10-12] MEDS ORDERED: POTASSIUM CHLORIDE 10 MEQ SR TABLET PO ONE (11:15)
[2018-10-12] MEDS ORDERED: TORS20TA2 PO (11:18)
[2018-10-12] MEDS ORDERED: KLOR10TA76 PO (11:18)
[2018-10-12] MEDS ORDERED: PRED10TA2 PO (11:18)
[2018-10-12] MEDS ORDERED: COLC1TAB13 PO (11:18)
[2018-10-12] MEDS ORDERED: COUM1TAB19 PO (11:18)
--- NOTE | 2018-10-15 14:00 | DS.PDOC ---
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 Morbid obesity Afib Has a pacemaker in place Diabetes with peripheral neupathy Hypertension CAD s/p CABG hyperlipidemia BPH Hematuria due to stag horn calculus CKD 3 Depression COMPLICATIONS/CHIEF COMPLAINT: CHF Exacerbation. HISTORY OF PRESENT ILLNESS: See history and physical HOSPITAL COURSE: Patient is a 63-year-old male with a PMHx of CAD s/p CABG, Systolic CHF 2/2 ischemic cardiomyopathy, Hx Bioprosthetic AVR, A. fib (on Coumadin), Hx of Dual chamber PM, HTN, DLP, DM2, DAVID not on CPAP, CKD3, Gout (on Prednisone), OA, BPH, Hx of Nephrolithiasis, Morbid obesity, who presented to the ER with complaints of LE swelling and knee pain. Patient was admitted to the hospitalist service for further evaluation, treatment for his suspected c ongestive heart failure exacerbation. Migratory polyarthopathy Topheceous Gout - likely with acute flare CRP decreasing. Had right ankle tapped on 10/09 which was a dry tap. increased prednisone to 40 mg daily and given colchicine daily. Now on prednisone taper. patient already on uloric. Chronic Bilateral knee pain/ ankle pain Has advanced OA in both the knees and ankles XR Knee 09/22: Degenerative and osteoarthritic changes. Vascular calcification. Evidence of joint effusion on the left as a new finding. XR Ankle 09/22: Osteoarthritic changes. Advanced vascular calcification. Diffuse swelling. Heel spurs. No acute bony abnormality. Patient has had his L knee joint aspirated and corticosteroids injected (09/26) with Orthopedic surgery c/w oxycodone, gabapentin, tylenol Orthopedic surgery on consult; Dr. Byrne, Dr Ricci Pain management has been on consultation Decompensated Diastolic and Systolic CHF (EF: 30%) Patient continues to have improvement in his lower extremity swelling ECHO 09/24: EF: 30-35%, Bioprosthetic AV, high CVP, severe biatrial enlargement, Duplex US 09/22: There is no ultrasonographic evidence of deep venous thrombosis involving any of the visualized deep venous structures of the right and left thigh, as described above. fluid restriction 2L / Day. c/w Torsemide 60 bid Left elbow drainage - likely 2/2 gout tophi Patient has reported that he has been putting his weight on his elbow Area appears to be draining white output L elbow culture 09/24: Staph aureus, Staph Sp Coag Neg L Elbow XR 09/26: No fracture noted. Olecranon soft tissue swelling and dystrophic soft-tissue calcification. Vascular calcification. Mild proximal ulnar spurring. finished 15 days of antibiotics. c/w Daily dressing changes Leukocytosis - inflammation possibly 2/2 corticosteroids, pain , acute gout flare. DAVID does not have CPAP was advised CPAP but did not like it so never used it. Nocturnal oxygen supplementation during sleep. will need outpateint noctural oximetry or sleep study to see if he qualifies for oxygen Morbid obesity complicating care. Hx of A. 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 Patient has had intervention at [facility] Has been on Augmentin as an outpatient; was switched to Unasyn when he was admitted then got Augmentin again total 15 days here and more before admission CAD s/p CABG c/w ASA, Atorvastatin, Losartan s/p Hematuria - possibly 2/2 Staghorn Stone Extraction has been scheduled for 10/03/2018 in [place] Discussed with urology office in [place]; patient was tentatively scheduled for a percutaneous nephrostomy with resection of staggering calculus Discussed with in house Urology about performing procedure at [facility]; currently we are not capable of performing percutaneous nephrostomies Will have outpatient procedure rescheduled Peripheral neuropathy / Hx of Lumbar Spinal stenosis c/w Gabapentin Depression c/w Sertraline, temazepam BPH Currently not on medications Morbid obesity Complicating medical care CKD3 - Cr appears to be at baseline Hyperlipidemia continue statin DISCHARGE MEDICATIONS: Please see below. ALLERGIES: Please see below. PHYSICAL EXAMINATION ON DISCHARGE: VITAL SIGNS: Please see below. General: Lying in bed, no acute distress, comfortable, AAOx3, morbidly obese. HEENT: NC, AT CVS: RRR, +S1S2, No rub, murmur or gallop Lungs: Air entry is fair bilaterally, No wheezing, rhonchi or rales Abdomen: Abdomen is soft. No evidence of distention/tenderness Extremities: There is still at least 1+ pitting edema bilaterally now mostly on dorsum of the feet. Left elbow with gouty discharge. 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 LABORATORY DATA: Please see below. ACTIVITY: [As tolerated]. DIET: Carb consistent, fluid restriction 2L DISCHARGE PLAN: Home DISPOSITION: Home DISCHARGE INSTRUCTIONS: Follow up with own orthopedic Follow up with Urology Follow up with PMD in 1 week ITEMS TO FOLLOWUP ON ON OUTPATIENT: Nocturnal oximetry DISCHARGE CONDITION: [Stable]. TIME SPENT ON DISCHARGE: Greater than 30 minutes. Vital Signs/I&Os Vital Signs Date Time Temp Pulse Resp B/P (MAP) Pulse Ox O2 Delivery O2 Flow Rate FiO2 10/12/18 10:50 18 10/12/18 10:07 135/82 10/12/18 06:00 97.0 79 99 2.0 I&O- Last 24 Hours up to 6 AM 10/12/18 06:00 Intake Total 1950 ml Output Total 3500 ml Balance -1550 ml Laboratory Data Labs 24H Laboratory Tests 2 10/11/18 16:30: Bedside Glucose (Misc Panel) 245H 10/11/18 19:43: Bedside Glucose (Misc Panel) 284H 10/12/18 06:19: Bedside Glucose (Misc Panel) 103 10/12/18 07:18: Immature Granulocyte % (Auto) 0.5, White Blood Count 9.3, Red Blood Count 4.38, Hemoglobin 11.0L, Hematocrit 36.2L, Mean Corpuscular Volume 82.6, Mean Corpuscular Hemoglobin 25.1L, Mean Corpuscular Hemoglobin Concent 30.4L, Red Cell Distribution Width 16.7H, Platelet Count 211, Neutrophils (%) (Auto) 60.6, Lymphocytes (%) (Auto) 31.0, Monocytes (%) (Auto) 6.7H, Eosinophils (%) (Auto) 0.9, Basophils (%) (Auto) 0.3, Neutrophils # (Auto) 5.6, Lymphocytes # (Auto) 2.9, Monocytes # (Auto) 0.6, Eosinophils # (Auto) 0.1, Basophils # (Auto) 0.0, Nucleated Red Blood Cells % (auto) 0.0, Anion Gap 5L, Glomerular Filtration Rate > 60.0, Blood Urea Nitrogen 31H, Creatinine 0.75, Sodium Level 141, Potassium Level 3.4L, Chloride Level 107, Carbon Dioxide Level 29, Calcium Level 8.3L, C- Reactive Protein, Quantitative 7.50H 10/12/18 11:55: Bedside Glucose (Misc Panel) 113 CBC/BMP Laboratory Tests 10/12/18 07:18 Red Blood Count 4.38, Mean Corpuscular Volume 82.6, Mean Corpuscular Hemoglobin 25.1 L, Mean Corpuscular Hemoglobin Concent 30.4 L, Red Cell Distribution Width 16.7 H, Neutrophils (%) (Auto) 60.6, Lymphocytes (%) (Auto) 31.0, Monocytes (%) (Auto) 6.7 H, Eosinophils (%) (Auto) 0.9, Basophils (%) (Auto) 0.3, Neutrophils # (Auto) 5.6, Lymphocytes # (Auto) 2.9, Monocytes # (Auto) 0.6, Eosinophils # (Auto) 0.1, Basophils # (Auto) 0.0, Calcium Level 8.3 L FSBS Laboratory Tests Test 10/11/18 16:30 10/11/18 19:43 10/12/18 06:19 10/12/18 11:55 Range/Units Bedside Glucose (Misc Panel) 245 284 103 113 80-115 MG/DL Discharge Medications Scheduled Aspirin (Aspir 81) 81 Mg Tab, 81 MG PO DAILY, (Reported) Atorvastatin Calcium (Atorvastatin Calcium) 40 Mg Tab, 40 MG PO DAILY, (Reported) Colchicine (Colchicine) 0.6 Mg Tablet, 0.6 MG PO BID Ergocalciferol (Vitamin D2) (Vitamin D2) 50,000 Unit Cap, 50,000 UNITS PO QWEEK, (Reported) SUNDAYS Febuxostat (Uloric) 40 Mg Tab, 40 MG PO DAILY, (Reported) Gabapentin (Neurontin) 300 Mg Cap, 300 MG PO BID, (Reported) Glipizide (Glipizide) 5 Mg Tab, 5 MG PO QPM, (Reported) 1800 Losartan Potassium (Losartan Potassium) 25 Mg Tab, 25 MG PO DAILY, (Reported) Metformin HCl (Metformin HCl ER) 500 Mg Tab.er.24h, 1,000 MG PO BID, (Reported) Potassium Chloride (Klor-Con M10) 10 Meq Tab.er.prt, 40 MEQ PO DAILY Prednisone (Prednisone) 10 Mg Tablet, 10 MG PO BID, (Reported) Prednisone (Prednisone) 10 Mg Tablet, 10 MG PO TAPER Take 4 tabs daily x 1 day, then 3 tabs daily x 3 days, then 2 tabs daily x 3 days, then 1 tab daily x days then own med Sertraline Hcl (Sertraline HCl) 50 Mg Tab, 50 MG PO DAILY, (Reported) Temazepam (Temazepam) 15 Mg Cap, 30 MG PO QHS, (Reported) Torsemide (Torsemide) 20 Mg Tablet, 60 MG PO BID@09,17 Warfarin Sodium (Coumadin) 3 Mg Tablet, 3 MG PO DAILY@17 Scheduled PRN Hydrocodone/Acetaminophen ([place] 5-325 Tablet) 1 Each Tablet, 1 TAB PO Q4H PRN for PAIN, (Reported) Allergies Coded Allergies: No Known Allergies (Unverified , 09/16/18) ALCIDES RATLIFF MD October 12, 2018 14:11
== END 2018-10-12 17:05 | disposition home health service (06) | DRG 291 ==
LOC: M ED 10:10 → M ED INP 14:00 → M PCU 09-23 19:30 → M MS5PR 09-26 23:45
PROVIDERS: ADMIT General Practice; ATTEND Internal Medicine
DX: I13.0 Hypertensive heart and chronic kidney disease with heart failure and stage 1 through stage 4 chronic kidney disease, or unspecified chronic kidney disease (principal); I50.43 Acute on chronic combined systolic (congestive) and diastolic (congestive) heart failure; Z68.41 Body mass index [BMI] 40.0-44.9, adult; N18.3 Chronic kidney disease, stage 3 (moderate); R31.0 Gross hematuria; E66.01 Morbid (severe) obesity due to excess calories; M1A.9XX1 Chronic gout, unspecified, with tophus (tophi); I25.10 Atherosclerotic heart disease of native coronary artery without angina pectoris; E11.40 Type 2 diabetes mellitus with diabetic neuropathy, unspecified; F32.9 Major depressive disorder, single episode, unspecified; I48.91 Unspecified atrial fibrillation; G47.33 Obstructive sleep apnea (adult) (pediatric); E55.9 Vitamin D deficiency, unspecified; Z79.01 Long term (current) use of anticoagulants; Z95.0 Presence of cardiac pacemaker; Z79.52 Long term (current) use of systemic steroids; N40.0 Benign prostatic hyperplasia without lower urinary tract symptoms; E11.65 Type 2 diabetes mellitus with hyperglycemia; D72.829 Elevated white blood cell count, unspecified; B95.61 Methicillin susceptible Staphylococcus aureus infection as the cause of diseases classified elsewhere

== ENCOUNTER 2019-04-14 06:00 | Inpatient (IN) | payer MEDICARE, MEDICAID ==
[~2019-04-14] VITALS: Ht 177.8 cm; Wt 130.0 kg
[~2019-04-14 06:00] MED LIST changes: +ACYC800T PO; +AMOX875T2 PO; +BUME2TAB3 PO; +COLC1TAB13 PO; +COUM1TAB19 PO; +DOXY1CAP60 PO; -FEBU40TA PO; +FEBU40TA4 PO; +INSUDET SC; +KLOR10TA76 PO; +LR 1,000 ML IV ONE; +METF-791 PO; +NORC1TAB7 PO; +NOVO70VL SC; +PRED10TA2 PO; +PRED5TA PO; +TORS20TA2 PO; +WARF-60 PO; +ceFAZolin SOD 1 GM in D5W MINI-BAG PLUS 50 ML IV ONE; +ceFAZolin SOD 2 GM in IV 1 EA IV ONE
[2019-04-14 06:33] LABS: INR 1.32; PROTHROMBIN TIME 16.1 SECONDS (11.8-14.0)
[2019-04-14] MEDS ORDERED: dexameTHASONE 4 MG/ML 1ML VIAL (J1100) As Ordered ONE ×2 (07:48→09:05)
[2019-04-14] MEDS ORDERED: PROPOFOL 200 MG/20 ML VIAL As Ordered ONE ×2 (07:48→08:36)
[2019-04-14] MEDS ORDERED: LIDOCAINE 2% INJ 100 MG/5 ML SDV (FOR ANES.) As Ordered ONE (07:48)
[2019-04-14] MEDS ORDERED: ONDANSETRON 4MG/2ML VIAL (J2405) As Ordered ONE ×2 (07:48→12:45)
[2019-04-14] MEDS ORDERED: fentaNYL 100 MCG/2 ML INJECTION (J3010) As Ordered ONE ×3 (07:51→12:01)
[2019-04-14] MEDS ORDERED: CONRAY-60 60% 50ML VIAL (Q9961) As Ordered ONE (08:22)
[2019-04-14] MEDS: LABETALOL HCL 100 MG/20 ML VIAL IV SCH ×7 (11:50→14:15)
[2019-04-14] MEDS: fentaNYL 100 MCG/2 ML INJECTION (J3010) IV PRN ×2 (12:02→13:21)
--- NOTE | 2019-04-14 12:05 | RO ---
DATE OF PROCEDURE: 04/14/2019 PREPROCEDURE DIAGNOSIS: Bilateral kidney stones. POSTPROCEDURE DIAGNOSIS: Bilateral kidney stones. PROCEDURE: Cystoscopy, bilateral ureteroscopy with laser lithotripsy and basket extraction of stones, bilateral retrograde pyelograms with intraoperative interpretative of images, bilateral ureteral stent placement. SURGEON: Dr. Arturo Aguayo KEG FILLER: None. ANESTHESIA: General. OPERATIVE INDICATIONS: This is a 63-year-old male who on CAT scan was found to have bilateral kidney stones measuring about 1.5 cm on the left and greater than 3 cm on the right. He was brought to the operating room today for treatment. DESCRIPTION OF PROCEDURE: The patient was brought to the operating room, where general anesthesia was induced. Prophylactic antibiotics were infused. He was then placed in the dorsal lithotomy position, prepped and draped in the usual sterile fashion. A rigid cystoscope was then inserted into the urethral meatus and advanced into the bladder. A guidewire was advanced up the left collecting system. I then advanced a ureteral access sheath over the wire into the left collecting system. I then went up the access sheath with a flexible ureteroscope and examined the kidney thoroughly. Two stones were seen with one measuring 1.5 cm and another one approximately 6 mm. Both of these stones were fragmented into smaller pieces using 272 micron laser fiber and then all the fragments were removed using a basket. Once done the only fragments remaining were very tiny stones that would be able to pass. A retrograde pyelogram was performed notable for mild left hydronephrosis and no extravasation. I then withdrew the uteroscope along with access sheath and no stones were seen within the ureter. I then utilized the wire to advance a 6-[place] x 22-32 cm JJ ureteral stent into the left collecting system. At this point, the wire was removed and there were adequate curls of the stent in the left renal pelvis and in the bladder. I then advanced the wire up the right collecting system. I advanced the ureteral access sheath up the wire. I went up the access sheath with a flexible ureteroscope and examined the kidney thoroughly. Within the kidney only one stone was seen and the stone was probably at least 4 cm in size. I then utilized the laser fragment to dust the stone and of note this took a very long time given the size of the stone. While doing this, I did start having some bleeding inside the kidney, which made visibility difficult. At this point, I decided to stop. Once I stopped, it appeared that I had dusted approximately 50% of the stone. At this point, a retrograde pyelogram was performed and was notable for mild right hydronephrosis and no extravasation. I then withdrew the ureteroscope along with access sheath and no stones were seen within the ureter. I then advanced a #7-[place] x 22-32 cm JJ ureteral stent over the wire and into the right collecting system. The wire was then removed, and there were adequate curls of the stent in the right renal pelvis and in the bladder. The bladder was then emptied of all fluid, and this marked the conclusion of the procedure. The patient was then taken out of the dorsal lithotomy position, awakened from anesthesia, and transported to the recovery room in stable condition. ESTIMATED BLOOD LOSS: 20 mL. COMPLICATIONS: None. SPECIMENS: Kidney stone fragments. PLAN: The likelihood of needing staged ureteroscopies to take care of the entire stone burden in the right kidney was discussed with the patient preoperatively. We will bring the patient back to the operating room in a few weeks to fragment the remainder of the stone on the right side and we will remove the left ureteral stent at that time. BRYAN
--- NOTE | 2019-04-14 12:42 | REP ---
Retrograde pyelogram: Four views. History: Cystoscopy, bilateral stent placement. 33 seconds of fluoroscopy time is reported. Findings: A sequence of four last image hold fluoroscopically obtained spot radiographs of the abdomen document bilateral ureteral cannulation and contrast injection and bilateral ureteral stent placement. Electronically Signed by Du Fraire MD 04/14/2019 01:49 P
[2019-04-14] MEDS ORDERED: METOCLOPRAMIDE INJ 10MG/2ML VIAL (J2765) As Ordered ONE (13:03)
--- NOTE | 2019-04-14 13:15 | REP ---
Portable chest x-ray: Single view. History: Postop. Comparison chest x-ray: September 22, 2018. Findings: Monitoring electrodes overlie the chest. A bipolar pacemaker is seen in the enlarged heart. The patient is status post prior median sternotomy. Pulmonary vascular congestion and cephalization is seen and there is a mildly prominent pulmonary interstitial pattern question mild interstitial edema. No pleural effusion is seen. There is no evidence of pneumothorax. Electronically Signed by Du Fraire MD 04/14/2019 01:06 P
[2019-04-14] MEDS ORDERED: ONDANSETRON 4MG/2ML VIAL (J2405) IV PRN (13:45)
[2019-04-14] MEDS ORDERED: METOCLOPRAMIDE INJ 10MG/2ML VIAL (J2765) IV PRN (13:45)
[2019-04-14] MEDS ORDERED: PERCOCET 5MG/325MG TAB PO PRN (13:45)
[2019-04-14] MEDS ORDERED: LR 1,000 ML IV SCH (13:45)
[2019-04-14] MEDS ORDERED: GLUCAGON FOR INJ 1 MG VIAL (J1610) SC PRN (16:15)
[2019-04-14] MEDS ORDERED: GLUCOSE 4 GM CHEW TABLET PO PRN (16:15)
[2019-04-14] MEDS ORDERED: DEXTROSE 50% 50 ML SYRINGE IV PRN (16:15)
[2019-04-14] MEDS ORDERED: WARFARIN SOD 3 MG TAB PO SCH (17:00)
[2019-04-14 17:10] LABS: BASO # 0.1 10^3/uL (0.0-0.2); BASO % 0.5 % (0.0-1.0); EOS # 0.1 10^3/uL (0.0-0.5); EOS % 0.6 % (0.0-3.0); HEMATOCRIT 44.2 % (42.0-52.0); HEMOGLOBIN 13.8 g/dl (13.5-17.5); LYMPH # 1.4 10^3/uL (1.5-5.0); LYMPH % 10.8 % (24.0-44.0); MEAN CORPUSCULAR HEMOGLOBIN 28.3 pg (27.0-33.0); MEAN CORPUSCULAR HGB CONC 31.2 g/dl (32.0-36.5); MEAN CORPUSCULAR VOLUME 90.6 fl (80.0-96.0); MONO # 1.1 10^3/uL (0.0-0.8); MONO % 8.6 % (0.0-5.0); NEUTROPHILS # 9.9 10^3/uL (1.5-8.5); NEUTROPHILS % 78.9 % (36.0-66.0); PLATELET COUNT, AUTOMATED 133 10^3/uL (150-450); RED BLOOD COUNT 4.88 10^6/uL (4.30-6.10); WHITE BLOOD COUNT 12.5 10^3/uL (4.0-10.0)
--- NOTE | 2019-04-14 17:11 | HPE ---
DATE OF ADMISSION: 04/14/2019 COLLABORATIVE PHYSICIAN: Dr. Donnell Gómez CHIEF COMPLAINT: Shortness of breath. HISTORY OF PRESENTING ILLNESS: This is a 64-year-old male with a history of coronary artery disease, coronary artery bypass graft (CABG), congestive heart failure, systolic/diastolic dysfunction, ejection fraction (EF) of 30%, automatic implantable cardioverter defibrillator (AICD) pacemaker for atrial fibrillation, on chronic warfarin. He was at same-day surgery due to bilateral kidney stones, status post cystoscopy, bilateral ureteroscopy, laser lithotripsy, basket extraction of stones, with bilateral retrograde pyelogram with intraoperative interpretive imaging and bilateral ureteral stent placement; he developed increasing shortness of breath and hypoxia postoperatively. Patient could not be removed from oxygen, required two liters nasal cannula. Chest x-ray showed increased vascular congestion. Patient admits to having a 15-pound weight gain since he last saw his primary care physician, with increased lower extremity edema, paroxysmal nocturnal dyspnea (PND) with three-pillow orthopnea, and admits to indiscretion with fluid restriction. He does keep an eye on his salt intake and currently denies any chest pain, pressure or tightness, lightheadedness or dizziness. Denies any palpitations. Patient's heart rate was controlled at 80. EKG is still pending. INR was low at 1.32. Patient denies any upper respiratory infection, fever, chills, nausea, vomiting, abdominal pain related to his chronic kidney stones, status post lithotripsy. He currently complains of some dysuria and flank pain, but denies any chills. Hospitalist was called to admit for CHF exacerbation, status post lithotripsy, extraction of stones and bilateral stent placement for kidney stones. PAST MEDICAL HISTORY: Coronary artery disease. CABG. Congestive heart failure, systolic and diastolic congestive heart failure, ejection fraction of 30% and follows with Dr. Donnell Gómez. Atrial fibrillation with pacemaker. Bioprosthetic valve replacement. Type 2 diabetes. Hypertension. Gout. Obstructive sleep apnea, on oxygen at night. Refuses continuous positive airway pressure (CPAP). Insomnia. Hyperlipidemia. BPH with elevated prostate-specific antigen (PSA). Osteoarthritis. Atrial fibrillation, on chronic Coumadin. Vitamin B12 deficiency. Anemia. Ischemic cardiomyopathy. Lumbar spinal stenosis. Morbid obesity. Recurrent nephrolithiasis. ALLERGIES: No known drug allergies. PAST SURGICAL HISTORY: CABG times four vessels. AICD - [place]2014. Pacemaker - [place]2014. Bilateral cataract surgery 2014. Valve replacement - November 2015. FAMILY HISTORY: Older brother with kidney stones. Five brothers, one sister, one son and one daughter. Father with CHF. Mother with cancer, age 65. SOCIAL HISTORY: Lives alone. Never smoked cigarettes. Single. Healthcare proxy is the patient's daughter. Likes to drink Mountain Dew. Patient's son is Camilo Pereira, phone number [phone]. Daughter's number is [phone]. HOME MEDICATIONS: - Bumex 2 mg twice a day - Coreg 6.25 mg twice a day - colchicine 0.6 mg twice a day - vitamin D 50,000 units weekly - NovoLog insulin before food - Levemir nightly, dose is not noted - metformin 1 gram twice a day - potassium 40 mEq daily - warfarin 6 mg daily - aspirin 81 mg daily - atorvastatin 40 mg daily - Uloric 40 mg daily - gabapentin 300 mg twice a day - glipizide 5 mg daily - losartan 25 mg daily - prednisone 10 mg tablet, 5 mg twice a day - sertraline 50 mg daily - temazepam 30 mg nightly REVIEW OF SYSTEMS: Per history of the present illness; 12-point system otherwise negative. PHYSICAL EXAMINATION: Temperature 97.6, pulse 80, respiratory rate 20, blood pressure 170/82, 95% on two liters nasal cannula. Generally, patient is awake, alert, oriented times three, no use of respiratory accessory muscles. No nasal flaring. Trachea is midline. Positive jugular venous distention. No thyromegaly or cervical lymphadenopathy. No conversational dyspnea. Lungs: Diminished bibasilar rales. Heart: S1, S2, irregularly irregular. Pacemaker defibrillator left anterior chest. Abdomen: Obese, soft, nontender, positive costovertebral angle tenderness bilaterally. No abdominal bruits. Extremities: 3+ pitting edema to the sacrum. Laboratory Data: Still pending. EKG still pending. Chest x-ray: Bipolar pacemaker is seen in the enlarged heart, status post median sternotomy, pulmonary vascular congestion and cephalization with mild prominent pulmonary interstitial pattern, question mild interstitial edema. No evidence of pneumothorax. Retrograde pyelogram 04/14/2019: Bilateral ureteral cannulation and contrast injection, bilateral ureteral stent placement. ASSESSMENT AND PLAN: This is a 64-year-old male, history of coronary artery disease, CABG times four vessels, AICD pacer, atrial fibrillation - on chronic warfarin, bioprosthetic aortic valve, bilateral kidney stones, cataracts, chronic kidney disease stage III, status post cystoscopy, bilateral stent placement due to bilateral kidney stones, developed shortness of breath postoperatively, admitted to noncompliance with fluid restriction at home and a 15-pound weight gain, found to have CHF exacerbation. CURRENT ISSUES: 1. Congestive heart failure. Acute exacerbation. Systolic, diastolic dysfunction, EF of 30%. Patient will be admitted to telemetry. Cardiac markers will be cycled. Patient denies any acute complaints of chest pain, pressure, or tightness. EKG to be reviewed. Recent echo was done in October. Dr. Gómez will be consulted for management of systolic heart failure. Currently on Lasix every 6 hours, net negative balance goal of 1 liter daily. Strict intake and output and 2-liter fluid restriction. Avoid nephrotoxins. Monitor for contrast-induced nephropathy in light of recent retrograde pyelogram and supplement electrolytes if needed and keep magnesium greater than 2 and potassium greater than 4. Continue with oxygen supplement to keep saturations above 90%. Repeat chest x-ray in the morning. 2. Atrial fibrillation. Currently rate controlled on home dose of Coreg, which will be resumed with holding parameters. Patient has been restarted back on warfarin. Monitor for any signs of bleeding. Since patient had lithotripsy and recent cystoscopy, monitor for hematuria. Pain control with Percocet as needed. 3. Obstructive sleep apnea. At risk for hypercapnic respiratory failure and acute respiratory acidosis in light of CHF following cystoscopy with bilateral lithotripsy and stent placement. DAVID protocol. Continue with oxygen supplementation and continue with pulse oximetry. Patient has been prescribed oxygen at night as he does not tolerate CPAP. Keep oxygen saturation greater than 90%. 4. Bilateral kidney stones, status post cystoscopy, bilateral ureteroscopy, laser lithotripsy and basket extraction of stones with bilateral retrograde pyelogram, bilateral ureteral stent placement, managed by Dr. Aguayo. Patient had been given prophylactic antibiotics. Monitor intake and output. Monitor for any hematuria. 5. Type 2 diabetes with peripheral neuropathy. Continue on consistent carbohydrate diet, insulin sliding scale, hypoglycemic protocol. 6. Morbid obesity. Complicating care. 7. History of bilateral knee and ankle arthritis. Currently has no new complaints. 8. Hypertension. Continue home medications. Currently controlled. 9. Hyperlipidemia. Continue on home dose of statin. 10. Chronic kidney disease, stage III. Monitor for contrast nephropathy and worsening azotemia with Lasix diuresis for heart failure. 11. Depression. Continue home medication. 12. Deep vein thrombosis (DVT) prophylaxis. On chronic warfarin. MTDD
[2019-04-14] MEDS: HumaLOG INSULIN (NovoLOG) PER UNIT SC SCH ×2 (17:30→21:00)
[2019-04-14 17:39] LABS: ALBUMIN 3.4 GM/DL (3.2-5.2); BILIRUBIN,TOTAL 0.9 MG/DL (0.2-1.0); CALCIUM LEVEL 9.2 MG/DL (8.8-10.2); CREATININE FOR GFR 1.87 MG/DL (0.70-1.30); GLOMERULAR FILTRATION RATE 38.6 (>49); MAGNESIUM LEVEL 1.7 MG/DL (1.8-2.4); MB/CK RELATIVE INDEX 1.68 (< OR =4); POTASSIUM SERUM 4.1 MEQ/L (3.5-5.1); TOTAL PROTEIN 6.3 GM/DL (6.4-8.2); TROPONIN I 0.03 NG/ML (< 0.10)
[2019-04-14] MEDS ORDERED: PERCOCET 5MG/325MG TAB As Ordered ONE (17:57)
[2019-04-14] MEDS: FUROSEMIDE 40 MG/4 ML VIAL (J1940) IV SCH ×2 (18:00→23:41)
[2019-04-14] MEDS: PERCOCET 5MG/325MG TAB PO PRN ×2 (18:15→22:29)
[2019-04-14 19:00] VITALS: BP 138/76
[2019-04-14 19:30] VITALS: BP 134/65
--- NOTE | 2019-04-14 19:49 | CR ---
DATE OF CONSULTATION: 04/14/2019 REFERRING PHYSICIAN: Dr. Silva INDICATION: Congestive heart failure. I was asked to see Mr. Buchanan because of congestive heart failure. He is a pleasant 64-year-old man who is typically followed by Dr. Gómez in [place]. He underwent retrograde ureterogram earlier today and apparently in postoperative period developed fairly sudden onset of severe dyspnea. It was felt that it was consistent with congestive heart failure. He was not given any of doses of diuretics, but just with pain control his condition improved and when I saw him around 6:30 p.m. he was very comfortable and was telling me that he is close to his baseline. He denies any chest discomfort. He denies any PND, orthopnea, but he does admit that he gained some weight lately. He is not able to specify how much. PAST MEDICAL HISTORY: Coronary artery disease with history of coronary artery bypass graft (CABG) in May 2007 and redo CABG, together with aortic valve replacement with bioprosthesis in November 2015. To the best of my knowledge, he has not had functional evaluation since his coronary artery bypass graft in 2015. He does have severe left ventricular systolic dysfunction. The last echocardiogram was from our facility from earlier this year and revealed ejection fraction around 30-35% and normal function of aortic bioprosthesis. He has numerous other problems that include chronic atrial fibrillation, history of biventricular implantable cardioverter defibrillator (ICD) placement in 2013, hypertension, dyslipidemia, renal insufficiency, morbid obesity, gout and history of recurrent kidney stones SURGICAL HISTORY: Positive for bypass surgery, redo bypass surgery and aortic valve replacement, as noted above, biventricular ICD placement in 2013, right foot surgery and recurrent surgeries for sternal wound infection after his valve replacement in 2015 and prostate biopsy. OUTPATIENT MEDICATIONS: - aspirin 81 mg a day - Lipitor 40 mg daily - Coreg 6.25 mg three times a day - Colcrys 0.6 mg twice a day - gabapentin 300 mg twice a day - potassium 29 mEq three times day - losartan 25 mg a day - Lasix 40 mg as needed, typically using Bumex 2 mg twice a day - insulin - prednisone twice a day - sertraline 50 mg a day - temazepam 30 mg a day - Uloric 40 mg a day - vitamin D - warfarin as directed by primary care physician He reports intolerance to ALLOPURINOL. SOCIAL HISTORY: The patient is single. He lives alone and there is no history of smoking. He has two children. REVIEW OF SYSTEMS: He denies any recent fever, chills, nausea, vomiting or diarrhea, until some nausea after the procedure today. No chest pain or palpitations. No syncope. No ICD discharges. No paroxysmal nocturnal dyspnea (PND) or orthopnea. At his baseline, he is able to walk about a block and is principally limited, not by dyspnea, but by knee pains. He has noted peripheral edema for at least couple or three weeks. PHYSICAL EXAMINATION: Mr. Buchanan is a middle-aged to elderly white male who appears his age or even possibly younger. He is in no distress. Blood pressure 130/53, heart rate has been in 80s to 90s. He has atrial fibrillation with ventricular pacing. His last documented temperature was 100.2 and saturation 94% on 2 liters of oxygen by nasal cannula. His jugular venous pulse is difficult to steam flattener due to his body habitus, but does appear elevated. There is an ICD in left subclavian pocket. There is a scar after sternotomy Heart exam reveals somewhat muffled heart sounds, but I do not appreciate a distinct murmur, gallop or rub. Lungs are reasonably clear with only minimal scattered crackles. Air movement is good. Abdomen is obese but soft. There is some tenderness over both flanks. Extremities have about one to 2+ edema, nonpitting. Peripheral pulses are detectable. LABORATORY DATA: Complete blood count (CBC): WBC count 12.5, hemoglobin 13.8, hematocrit 42 and platelet count 133,000. Basic metabolic panel: Sodium 143, potassium 4.1, BUN 33, creatinine 1.9 for GFR 39 and glucose 145. His N terminal pro BNP was 3800. Albumin 3.3. His cardiac enzymes are negative. INR is 1.3. Chest x-ray is suggestive of cardiomegaly and mild congestive heart failure. ECG reveals presence of atrial fibrillation with biventricular pacing. ASSESSMENT AND PLAN: 1. Mr. Buchanan is a 64-year-old man who has chronic atrial fibrillation, severe coronary artery disease (CAD) with history of CABG and redo CABG, with known severe left ventricular systolic dysfunction and biventricular ICD in place. He apparently was in significant respiratory distress after urologic procedure earlier today and there is evidence for congestive heart failure based on laboratories, physical exam and a chest x-ray. From cardiac perspective, I agree with Dr. Silva's plan. I believe we can continue his current medications and give him diuretics intravenous (IV). He is already much more comfortable just with pain control, so I do not foresee having problems accomplishing adequate respiration. Unfortunately, the limiting factor that I foresee will be renal insufficiency. I do believe that the impairment is principally due to nephrolithiasis rather than acutely exacerbated congestive heart failure. Hopefully, the intervention today will prove to be beneficial in this regard. He is chronically on Coumadin that was temporarily interrupted and he was receiving Lovenox. I would not give him any anticoagulation today, but if there is not much hematuria, I believe we can put him on Lovenox tomorrow until he becomes therapeutic on his Coumadin again. As far as ischemic heart disease is concerned, I do not have suspicion that this presentation is due to ischemia. I would obtain followup cardiac enzymes in the morning. 2. Atrial fibrillation. It seems to be very well-controlled on current regimen and he is biventricularly paced. I do not believe that any alteration in management in this regard are necessary.
[2019-04-14 20:00] VITALS: BP 150/81
[2019-04-14] MEDS ORDERED: PRED5TA PO (20:52)
[2019-04-14] MEDS ORDERED: SULF1TAB93 PO (20:52)
[2019-04-14] MEDS ORDERED: ENOX100I3 SC (20:52)
[2019-04-14 21:00] VITALS: BP 131/78
[2019-04-14] MEDS: predniSONE 5 MG TAB PO SCH (21:36)
[2019-04-14] MEDS: CARVedilol 6.25 MG TAB PO SCH (21:36)
[2019-04-14] MEDS: COLCHICINE 0.6 MG TAB PO SCH (21:37)
[2019-04-14] MEDS ORDERED: SLF 3 ML SYR IV PRN (21:45)
[2019-04-14 22:00] VITALS: BP 129/80
[2019-04-14] MEDS: SLF 3 ML SYR IV SCH (22:30)
[2019-04-14 23:00] VITALS: BP 133/84
[2019-04-15 04:00] VITALS: BP 126/62
[2019-04-15] MEDS: FUROSEMIDE 40 MG/4 ML VIAL (J1940) IV SCH (04:34)
[2019-04-15] MEDS: PERCOCET 5MG/325MG TAB PO PRN ×2 (04:40→20:46)
[2019-04-15] MEDS: SLF 3 ML SYR IV SCH ×3 (04:40→20:47)
[2019-04-15 05:36] LABS: HEMOGLOBIN 12.7 g/dl (13.5-17.5); MEAN CORPUSCULAR HEMOGLOBIN 27.7 pg (27.0-33.0); MEAN CORPUSCULAR HGB CONC 30.2 g/dl (32.0-36.5); MEAN CORPUSCULAR VOLUME 91.5 fl (80.0-96.0); PLATELET COUNT, AUTOMATED 110 10^3/uL (150-450); RED BLOOD COUNT 4.59 10^6/uL (4.30-6.10); WHITE BLOOD COUNT 11.3 10^3/uL (4.0-10.0)
[2019-04-15 05:47] LABS: INR 1.37; PROTHROMBIN TIME 16.6 SECONDS (11.8-14.0)
[2019-04-15 06:09] LABS: CALCIUM LEVEL 8.8 MG/DL (8.8-10.2); CREATININE FOR GFR 1.78 MG/DL (0.70-1.30); GLOMERULAR FILTRATION RATE 40.9 (>49); MAGNESIUM LEVEL 1.8 MG/DL (1.8-2.4); POTASSIUM SERUM 4.4 MEQ/L (3.5-5.1); TROPONIN I 0.03 NG/ML (< 0.10)
--- NOTE | 2019-04-15 06:50 | IPN ---
DATE: 04/15/2019 Mr. Buchanan had an uneventful night. He was able to sleep without difficulty. When I entered the room he was sleeping on his back completely flat and had no distress. Vital signs: Blood pressure 126/62, heart rate has been in 80s and 90s, atrial fibrillation with predominantly ventricular pacing. Afebrile. Saturation 96% of 2 liters of oxygen. He made about 700 mL of urine last night. He is alert and oriented and appropriate. His jugular venous pressure (JVP) is difficult to assess with his body habitus, but does look somewhat elevated. Lungs are clear this morning. No crackles, rhonchi or wheezing at all. Heart exam reveals muffled heart sounds with irregular heart rate. I do not appreciate any murmur, gallop or rub. Abdomen is obese but soft. There is about 1+ peripheral edema. LABORATORIES: CBC is essentially unchanged since yesterday, hemoglobin 12.7, hematocrit 42, platelet count 110,000. Basic metabolic panel reveals potassium 4.4, BUN 34, creatinine 1.8 and glucose 215. Troponin is negative. ASSESSMENT/PLAN: Mr. Buchanan is a 64-year-old man who has chronic atrial fibrillation, biventricular defibrillator, ischemic cardiomyopathy with EF about 35% and history of aortic valve replacement. He had an episode of shortness of breath shortly after he underwent a fairly large urologic procedure yesterday. Consequently, he was kept in the hospital. He feels well though and his creatinine is slightly better today than it was yesterday. In my opinion, he probably can be discharged home later today provided he can ambulate without much difficulty. He certainly will need close followup of his renal function. I do suspect that there has been a component of obstruction behind his elevated troponin that hopefully will be helped by the procedure done yesterday. His anticoagulation was already restarted and I do not have any new recommendations for his management. I will let Dr. Gómez know about this hospitalization and will ask him for followup next week in [place].
--- NOTE | 2019-04-15 07:00 | ECGEPIP ---
[facility] Test Date: 2019-04-14 Pat Name: RUSLAN VALLEJO Department: Room: 01[facility] Gender: Male Head Swamper: THERESA : 1955 Requested By: ELMO Harry Order Number: [id number] Reading MD: Cathleen Parks Measurements Intervals Midway Rate: 94 P: TN: 0 QRS: -74 QRSD: 176 T: 20 QT: 356 QTc: 447 Interpretive Statements ATRIAL FIBRILLATION WITH Right bundle branch block PACER PATTERN NOT USUAL PATTERN FOR RV PACER ALSO APPEARS BE PACING IRREGULARLY QUESTION PACER ARTIFACT ST DEPRESSION, CONSIDER SUBENDOCARDIBAL INJURY LATERALLY COPD PATTERN Left aterior fascicular block AND/OR OLD IWMI RATE FASTER ST ABN MORE MARKED C/W 09/22/18 Electronically Signed on 04-15-2019 6:59:40 EST by Cathleen Parks
[2019-04-15] MEDS ORDERED: ENOXAPARIN 150 MG/ML SYR (J1650) SC ONE (07:45)
[2019-04-15 08:00] VITALS: BP 136/65
[2019-04-15] MEDS ORDERED: MAG SULF 1GM/100ML (MAG RUN) 1 GM in IV 1 EA IV ONE (08:00)
--- NOTE | 2019-04-15 08:07 | REP ---
Portable chest x-ray: Sitting AP view. History: Shortness of breath. Comparison study: April 14, 2019. Findings: A multi lead pacemaker is seen in the moderately to markedly enlarged heart via the left side. The patient is status post cardiac valve replacement and median sternotomy. Pulmonary vascular congestion and cephalization are again seen. There is no evidence of pleural effusion or sandra pulmonary edema. No definite focal infiltrate. Electronically Signed by Du Fraire MD 04/15/2019 07:57 A
[2019-04-15] MEDS: HumaLOG INSULIN (NovoLOG) PER UNIT SC SCH ×4 (08:54→20:45)
[2019-04-15] MEDS: COLCHICINE 0.6 MG TAB PO SCH ×2 (08:54→20:44)
[2019-04-15] MEDS: ATORVASTATIN 20 MG TAB PO SCH (08:55)
[2019-04-15] MEDS: predniSONE 5 MG TAB PO SCH ×2 (08:55→20:45)
[2019-04-15] MEDS: CARVedilol 6.25 MG TAB PO SCH ×2 (08:55→20:44)
[2019-04-15] MEDS: SERTRALINE HCL 50 MG TAB PO SCH (08:55)
--- NOTE | 2019-04-15 09:35 | IPNPDOC ---
Subjective Review oF Systems Chief Complaint The patient is a 64-year-old male admitted with a reason for visit of Chf Exacerbation. Events since Last Encounter Patient notes that he feels better this morning. He has some right flank pain but not very bothersome. No difficulty voiding. Objective Physical Examination General Exam: Alert, Cooperative, No Acute Distress ABDOMEN EXAM: Soft; No: Tenderness Skin Exam: Nl turgor and temperature Psych Exam: Mental status NL, Mood NL Vital Signs/I&O Vital Signs Date Time Temp Pulse Resp B/P (MAP) Pulse Ox O2 Delivery O2 Flow Rate FiO2 04/15/19 08:55 86 136/65 04/15/19 08:31 95 Room Air 04/15/19 08:00 97.0 18 2.0 I&O- Last 24 Hours up to 6 AM 04/15/19 06:00 Intake Total 1660 ml Output Total 790 ml Balance 870 ml Laboratory Data Labs 24H Laboratory Tests 2 04/14/19 11:04: 04/14/19 11:53: Bedside Glucose (Misc Panel) 192H 04/14/19 16:54: Immature Granulocyte % (Auto) 0.6, Neutrophils (%) (Auto) 78.9H, Lymphocytes (%) (Auto) 10.8L, Monocytes (%) (Auto) 8.6H, Eosinophils (%) (Auto) 0.6, Basophils (%) (Auto) 0.5, Neutrophils # (Auto) 9.9H, Lymphocytes # (Auto) 1.4L, Monocytes # (Auto) 1.1H, Eosinophils # (Auto) 0.1, Basophils # (Auto) 0.1, Nucleated Red Blood Cells % (auto) 0.0, Anion Gap 7L, Glomerular Filtration Rate 38.6L, Calcium Level 9.2, Magnesium Level 1.7L, Total Bilirubin 0.9, Aspartate Amino Transf (AST/SGOT) 20, Alanine Aminotransferase (ALT/SGPT) 34, Alkaline Phosphatase 85, Total Creatine Kinase 119, Creatine Kinase MB 2.0, Creatine Kinase MB Relative Index 1.68, Troponin I 0.03, RV-Cgp-R-Type Natriuretic Peptide 3794H, Total Protein 6.3L, Albumin 3.4, Albumin/Globulin Ratio 1.17 04/14/19 21:28: Bedside Glucose (Misc Panel) 177H 11/12/19 05:09: Nucleated Red Blood Cells % (auto) 0.0, Prothrombin Time 16.6H, Prothromb Time International Ratio 1.37, Anion Gap 6L, Glomerular Filtration Rate 40.9L, Calc ium Level 8.8, Magnesium Level 1.8, Troponin I 0.03 CBC/BMP Laboratory Tests 04/14/19 16:54 04/15/19 05:09 FSBS Laboratory Tests Test 04/14/19 11:53 04/14/19 21:28 Range/Units Bedside Glucose (Misc Panel) 192 177 80-115 MG/DL Assessment/Plan Date Seen The patient was seen on 04/15/19. Patient Summary This is a 64 y/o M POD1 s/p cysto, b/l ureteroscopy w/ laser lithotripsy and basket extraction of stones, b/l ureteral stent placement, admitted postop for a CHF exacerbation. Plan/VTE VTE Prophylaxis Ordered?: Yes VTE Exclusion Mechanical Proph: N/A:VTE Prophy Ordered Plan - appreciate postop care from hospitalist service and cardiology - patient will require additional surgery to clear out the remaining stone burden in the right kidney - my office will arrange f/u in our office to get this set up JOSEPH AVILA MD Apr 15, 2019 09:35
[2019-04-15] MEDS ORDERED: FUROSEMIDE 100 MG/10 ML VIAL (J1940) IV ONE (11:00)
[2019-04-15 12:00] VITALS: BP 149/85
[2019-04-15] MEDS ORDERED: metOLazone 5 MG TAB PO ONE (13:00)
[2019-04-15] MEDS: FEBUXOSTAT 40 MG TABLET (ULORIC) PO SCH (14:19)
[2019-04-15] MEDS: BUMETANIDE 1 MG TAB PO SCH ×2 (14:19→20:44)
[2019-04-15 15:14] LABS: INR 1.41
[2019-04-15 15:21] LABS: CALCIUM LEVEL 8.6 MG/DL (8.8-10.2); CREATININE FOR GFR 1.67 MG/DL (0.70-1.30); MAGNESIUM LEVEL 2.1 MG/DL (1.8-2.4); POTASSIUM SERUM 4.3 MEQ/L (3.5-5.1)
[2019-04-15 16:00] VITALS: BP 142/86
--- NOTE | 2019-04-15 16:30 | IPN ---
DATE: 04/15/2019 The patient says that he feels comfortable today. He has not diuresed much overnight on IV Lasix, patient had only received one dose. After switching to Bumex and Zaroxolyn, patient had put out 1.4 liters and is currently negative 684. Patient ambulated well, 95% on room air, currently back on 2 liters nasal cannula at 96%. Denies any chest pain, pressure, tightness, lightheadedness or dizziness when he tried to sit up. Has not complained of feeling thirsty. Urine appears to be concentrated, dark orange-brownish color. Denies fever or chills, cough productive of sputum. Telemetry was unremarkable, remains regular rhythm, sinus, 85-87. Per pool table operator, patient is stable for discharge home. His INR has been subtherapeutic at 1.37, currently bridged with Lovenox, with weight of 139.1 kg. Patient has passed a home safety evaluation. Creatinine is stable at 1.6 to 1.87, still awaiting further diuresis. Potassium, magnesium appears to be within normal limits. Vital signs: Temperature 97.5, pulse 87, respiratory rate 18, blood pressure 149/85, 96% on two liters nasal cannula. Generally, patient is awake, alert, oriented times three, answering question appropriately. No use of respiratory accessory muscles. No conversational dyspnea. Able to complete his sentences. The neck is thick. Slight jugular venous distention. No cervical lymphadenopathy, thyromegaly. Moist mucous membranes. Lungs: Diminished. There are fine crackles at the bases, clear in the upper lobes. Heart: S1, S2, sinus rhythm, pacer automatic implantable cardioverter defibrillator (AICD) in the anterior chest. Abdomen is obese, soft, nontender, nondistended. Extremities: Positive 1+ edema. INPUT AND OUTPUT: Input of 716, output 1400, negative 684. Weight is 139.1, increased from 137.4 kg yesterday. LABORATORY DATA: White count 11, hemoglobin 12, hematocrit 42, platelet count 110. Sodium 141, potassium 4.3, chloride of 107, bicarbonate 29, BUN 34, creatinine 1.67, glucose 248, magnesium of 2.1, troponin 0.03, BNP 3794. Repeat chest x-ray shows increase in pulmonary vasculature, pulmonary vascular congestion and cephalization are seen again. No evidence of pleural effusion or sanrda pulmonary edema. Multi-lead pacer is seen in the moderately to markedly enlarged heart via the left side. No definite focal infiltrate. Median sternotomy. Status post cardiac valve replacement. ASSESSMENT AND PLAN: This is a 64-year-old male with a history of chronic atrial fibrillation, biventricular implantable cardioverter defibrillator 2013, chronic kidney disease, stage III, congestive heart failure, systolic dysfunction, ejection fraction (EF) of 30-35%, coronary artery bypass graft (CABG) with redo 2006 with aortic valve bioprosthetic valve replacement November 2015, gout, morbid obesity, recurrent kidney stones, found to be hypoxic requiring supplemental oxygen postoperatively yesterday after cystoscopy, bilateral stent placement and lithotripsy. CURRENT ISSUES: 1. Congestive heart failure (CHF). Acute decompensation, systolic dysfunction, EF of 30-35%. Patient did not respond well to intravenous Lasix and currently on Bumex, given Zaroxolyn with stable creatinine. Electrolytes were replenished and appears to be within normal limits. Per pool table operator, Dr. Chowdhury, patient has not had any reevaluation of his coronary vessels since his CABG and aortic valve replacement with a bioprosthetic valve. No acute indication to do a coronary angiogram. Patient appears comfortable currently on room air at 95%, ambulating well and passed home safety evaluation. May be discharged home in the morning and once patient has been net negative with decrease in weight. 2. Bilateral kidney stones, status post cystoscopy, lithotripsy and stent placement. Creatinine appears to be at baseline. Plans are to repeat cystoscopy in 2 weeks due to retained stone as outpatient, managed by Dr. Aguayo. 3. Obstructive sleep apnea. On oxygen at night. Noncompliant with continuous positive airway pressure (CPAP) as he does not tolerate this well. 4. Type 2 diabetes. On insulin sliding scale, glucose is 159-254. Patient is on consistent carbohydrate diet, 2-gram salt and renal diet at this time. 5. Atrial fibrillation. Currently rate controlled. He is on bridge therapy with Lovenox and warfarin to target INR of 2-3. Patient does have Lovenox at home and may be discharged home once further diuresis has been achieved. He is currently on Coreg 6.25 mg twice a day. 6. Morbid obesity. Body mass index (BMI) of 44, complicating his care. 7. Hypertension. Currently controlled on Coreg. 8. Hyperlipidemia. Complicating care. Continue statins as outpatient. 9. Deep vein thrombosis (DVT) prophylaxis. On chronic warfarin. DISPOSITION: Discharge in the morning. BRYAN
[2019-04-15] MEDS ORDERED: WARFARIN SOD 5 MG TAB PO ONE (17:00)
[2019-04-15] MEDS ORDERED: POLYVINYL ALCOHOL OPHTH SOLN 15 ML(LIQUITEARS) OU PRN (17:00)
[2019-04-15 18:41] LABS: CALCIUM LEVEL 9.3 MG/DL (8.8-10.2); CREATININE FOR GFR 1.59 MG/DL (0.70-1.30); GLOMERULAR FILTRATION RATE 46.6 (>49); MAGNESIUM LEVEL 2.1 MG/DL (1.8-2.4); POTASSIUM SERUM 4.1 MEQ/L (3.5-5.1)
[2019-04-15 20:00] VITALS: BP 140/60
[2019-04-15] MEDS: TEMAZEPAM 15 MG CAP PO SCH (21:54)
[2019-04-15 23:59] VITALS: BP 119/73
[2019-04-16 01:00] LABS: CALCIUM LEVEL 8.8 MG/DL (8.8-10.2); CREATININE FOR GFR 1.58 MG/DL (0.70-1.30); GLOMERULAR FILTRATION RATE 46.9 (>49); MAGNESIUM LEVEL 1.9 MG/DL (1.8-2.4); POTASSIUM SERUM 3.7 MEQ/L (3.5-5.1)
[2019-04-16 04:00] VITALS: BP 144/86
[2019-04-16] MEDS: PERCOCET 5MG/325MG TAB PO PRN (04:24)
[2019-04-16] MEDS: SLF 3 ML SYR IV SCH ×3 (04:25→21:06)
[2019-04-16] MEDS ORDERED: BISACODYL 5 MG TAB PO ONE (05:00)
[2019-04-16 05:41] LABS: IONIZED CALCIUM 4.2 MG/DL (4.5-5.3)
[2019-04-16 05:52] LABS: HEMATOCRIT 44.7 % (42.0-52.0); HEMOGLOBIN 14.1 g/dl (13.5-17.5); MEAN CORPUSCULAR HEMOGLOBIN 27.6 pg (27.0-33.0); MEAN CORPUSCULAR HGB CONC 31.5 g/dl (32.0-36.5); MEAN CORPUSCULAR VOLUME 87.5 fl (80.0-96.0); PLATELET COUNT, AUTOMATED 117 10^3/uL (150-450); RED BLOOD COUNT 5.11 10^6/uL (4.30-6.10); WHITE BLOOD COUNT 11.6 10^3/uL (4.0-10.0)
[2019-04-16 06:07] LABS: INR 1.33; PROTHROMBIN TIME 16.2 SECONDS (11.8-14.0)
[2019-04-16 06:14] LABS: CALCIUM LEVEL 8.9 MG/DL (8.8-10.2); CREATININE FOR GFR 1.56 MG/DL (0.70-1.30); GLOMERULAR FILTRATION RATE 47.6 (>49); MAGNESIUM LEVEL 1.8 MG/DL (1.8-2.4); POTASSIUM SERUM 3.7 MEQ/L (3.5-5.1)
[2019-04-16 08:00] VITALS: BP 144/82
[2019-04-16] MEDS ORDERED: ENOXAPARIN 150 MG/ML SYR (J1650) SC SCH ×2 (08:45→10:00)
[2019-04-16] MEDS ORDERED: metOLazone 5 MG TAB PO ONE (08:45)
[2019-04-16] MEDS ORDERED: POTASSIUM CHLORIDE 10 MEQ SR TABLET PO ONE (08:45)
[2019-04-16] MEDS ORDERED: MAG SULF 1GM/100ML (MAG RUN) 1 GM in IV 1 EA IV ONE (09:00)
[2019-04-16] MEDS ORDERED: ASPIRIN 81 MG ENTERIC TAB PO SCH (09:00)
[2019-04-16] MEDS ORDERED: BUMETANIDE 1 MG TAB PO SCH (09:00)
[2019-04-16] MEDS ORDERED: FLUBLOK(EGG FREE)(QUAD)INFLUENZA VACC 0.5ML SYRINGE (90682)18YRS&OLDER IM ONE (09:00)
--- NOTE | 2019-04-16 09:06 | REP ---
Portable chest x-ray: Single view. History: CHF. Check for resolution. Comparison chest x-ray: April 15, 2019 and April 14, 2019. Findings: Moderate to marked cardiomegaly persists. The patient status post prior median sternotomy and there is a multi lead pacemaker in the right heart via the left side as before. Pulmonary vascular markings are improved. No pulmonary vascular congestion visible today. There is no evidence of pleural effusion or pulmonary edema. Minimal linear plate-like atelectasis versus fibrosis is seen in the left base. Electronically Signed by Du Fraire MD 04/16/2019 08:58 A
[2019-04-16] MEDS: HumaLOG INSULIN (NovoLOG) PER UNIT SC SCH ×4 (09:31→21:00)
[2019-04-16] MEDS: COLCHICINE 0.6 MG TAB PO SCH ×2 (09:31→21:04)
[2019-04-16] MEDS: FEBUXOSTAT 40 MG TABLET (ULORIC) PO SCH (09:32)
[2019-04-16] MEDS: ATORVASTATIN 20 MG TAB PO SCH (09:32)
[2019-04-16] MEDS: CARVedilol 6.25 MG TAB PO SCH ×2 (09:33→21:00)
[2019-04-16] MEDS: SERTRALINE HCL 50 MG TAB PO SCH (09:33)
[2019-04-16] MEDS: predniSONE 5 MG TAB PO SCH ×2 (09:33→21:02)
[2019-04-16] MEDS ORDERED: PERCOCET 5MG/325MG TAB PO PRN (10:00)
[2019-04-16] MEDS ORDERED: PERCOCET 5MG/325MG TAB PO ONE (10:15)
[2019-04-16] MEDS: BUMETANIDE 1 MG TAB PO SCH ×2 (10:18→21:02)
[2019-04-16] MEDS ORDERED: ACETAMINOPHEN TAB 650MG DOSE (2X325MG) PO PRN (10:45)
[2019-04-16 10:56] LABS: GLUCOSE, URINE (UA) MANUAL NEGATIVE (NEGATIVE)
[2019-04-16 10:57] LABS: BILIRUBIN, URINE MANUAL OBSCURED (NEGATIVE); KETONE, URINE MANUAL OBSCURED mg/dL (NEGATIVE); UROBILINOGEN, URINE MANUAL OBSCURED mg/dl (NORMAL)
[2019-04-16 10:59] LABS: HYALINE CAST, URINE NONE SEEN /lpf (0-1); RBC, URINE TNTC /hpf (0-3); SQUAMOUS EPITHELIAL CELL URINE SMALL AMOUNT /hpf (SMALL AMT)
[2019-04-16 11:01] LABS: BACTERIA, URINE SMALL AMOUNT
[2019-04-16 12:00] VITALS: BP 132/70
--- NOTE | 2019-04-16 13:34 | IPN ---
DATE: 04/16/2019 The patient complains of gross hematuria from yesterday to this morning His breathing is much improved. No complaints of shortness of breath, chest pain, pressure or tightness. He did notice a little bit of dizziness when he tried to get up from lying down to sitting position. He diuresed 6.9 liters out yesterday, 1.6 since midnight of urine. Current weight is 134 kg from previous weight of 139.4 kg. The patient's creatinine is stable at 1.5. Despite gross hematuria, the patient's hemoglobin remains stable at [address] Aguayo, warfarin is usually resumed two days after cystoscopy, stent placement. So long as the hemoglobin is not decreasing there would be no concerns of any new pathology status post cystoscopy. The patient has been afebrile despite gross hematuria, denies any urgency or frequency, but does complain of a little bit of dysuria. He had a condom catheter yesterday. Currently it has been removed due to gross hematuria. He also complains of headache which is diffuse, no changes in vision. He has refused a CT of the head without contrast for concerns of CVA due to subtherapeutic INR with atrial fibrillation with dizziness and headache to rule out cerebellar CVA. The patient's daughter as well as the patient are aware that withholding warfarin has increased risk of CVA, but due to active blood loss we do need to hold both Lovenox and Coumadin, which were being used to bridge to a therapeutic INR of 2-3 for is atrial fibrillation. No other issues per nursing overnight. Heart rate remains regular sinus rhythm. Vitals: Temperature 97, pulse 91, respiratory rate 18, blood pressure 132/70, 95% on room air. Generally, patient is awake, alert, oriented to person, place and time. Anicteric. No jaundice. No pallor. No use of respiratory accessory muscles. Appears comfortable. No jugular venous distention (JVD), thyromegaly or cervical lymphadenopathy. Dry mucous membranes. Lungs are diminished but clear to auscultation. No wheezing, rales or rhonchi. Heart S1, S2, sinus rhythm, AICD pacer noted left anterior chest. Abdomen is obese, soft, nontender, nondistended. Positive bowel sounds. Gross hematuria noted in his urinal. Extremities trace edema. INPUT AND OUTPUT: Input of 1690, output 6950, negative 5258. Current weight is 134.8 kg from previous weight of 139.1 kg. LABORATORY DATA: White count 11.6, hemoglobin 14, hematocrit 44, platelet count 117. Sodium 138, potassium 3.7, chloride 99, bicarbonate 30, BUN 33, creatinine 1.56, glucose of 271. Microbiology: Urine culture is pending. Urinalysis is red, turbid in appearance, 3+ protein, obscured nitrite, too numerous to count RBCs, 3-5 WBCs. ASSESSMENT AND PLAN: This is a 64-year-old male with a history of ischemic cardiomyopathy, coronary artery bypass grafting (CABG), coronary artery disease (CAD), ejection fraction of 30-35%, congestive heart failure (CHF), systolic dysfunction, automatic implantable cardioverter-defibrillator (AICD), chronic atrial fibrillation, chronic kidney disease stage III at baseline creatinine, aortic valve bioprosthetic replacement 2015, gout, morbid obesity, recurrent kidney stones, found to be hypoxic requiring supplemental oxygen postoperatively after cystoscopy and bilateral stent placement and lithotripsy for kidney stones. ACTIVE ISSUES: 1. Gross hematuria. Most likely secondary to current use of Lovenox and Coumadin for atrial fibrillation, in an attempt to increase the INR to a target of 2-3 for his chronic atrial fibrillation in light of recent cystoscopy, bilateral stent placement and lithotripsy. The patient's hemoglobin and hematocrit appear stable. Will continue to monitor. He have discussed blood transfusion should he become much more symptomatic and hemoglobin less than 8 or active bleeding without stopping. 2. Atrial fibrillation. Currently sinus rhythm. His anticoagulation, Lovenox and Coumadin, have been held due to ongoing acute blood loss but no signs of severe anemia as yet. There is an increased risk of CVA with stopping his Coumadin, but with acute blood loss we would need to allow him to clot and stabilize the bleed. He is currently continued on aspirin. 3. Congestive heart failure (CHF). This has resolved. The patient received IV Lasix, Bumex, and Zaroxolyn, has diuresed well overnight with significant improvement back to baseline respiratory status today. Bumex has been resumed at his home dose. He is continued on his other medications including atorvastatin and Coreg. 4. History of kidney stones status post lithotripsy with basket extraction of stones and bilateral stent placement. Managed by Dr. Aguayo postoperatively. Per Dr. Aguayo today, no need for any urologic intervention. The patient is expected to have bled due to recent Lovenox and Coumadin. No need for further testing. Monitor hemoglobin and hematocrit for need for blood transfusion and withhold anticoagulation usually for two days, then resume. 5. Hypertension. Continue Coreg. 6. Hyperlipidemia. Will continue statins as an outpatient. 7. Deep vein thrombosis (DVT) prophylaxis. Warfarin has been held due to ongoing hematuria and blood loss, therefore compression stockings. DISPOSITION: Discharge has been postponed today due to gross hematuria and further monitoring required to check for resolution. MTDD
[2019-04-16 16:00] VITALS: BP 150/98
[2019-04-16 16:06] LABS: IONIZED CALCIUM 4.4 MG/DL (4.5-5.3)
[2019-04-16 16:09] LABS: HEMATOCRIT 48.1 % (42.0-52.0); HEMOGLOBIN 15.2 g/dl (13.5-17.5)
[2019-04-16 16:35] LABS: CALCIUM LEVEL 9.8 MG/DL (8.8-10.2); CREATININE FOR GFR 1.66 MG/DL (0.70-1.30); GLOMERULAR FILTRATION RATE 44.3 (>49); MAGNESIUM LEVEL 2.1 MG/DL (1.8-2.4); POTASSIUM SERUM 4.1 MEQ/L (3.5-5.1)
[2019-04-16] MEDS ORDERED: WARFARIN SOD 5 MG TAB PO ONE (17:00)
[2019-04-16] MEDS ORDERED: MOM 30ML SUSPENSION UDC PO PRN (17:15)
[2019-04-16] MEDS ORDERED: SENOKOT S TAB PO PRN (17:15)
[2019-04-16] MEDS ORDERED: BISACODYL 5 MG TAB PO PRN (17:15)
--- NOTE | 2019-04-16 19:06 | REPVR ---
PROCEDURE INFORMATION: Exam: US Retroperitoneal Limited, Kidneys Exam date and time: 04/16/2019 6:04 PM Clinical history: 64 years old, male; Other: Hematuria; Prior surgery; Surgery date: Post-operative (0-2 days); Surgery type: Lithotripsy with double j stent placement/ basketing; Additional info: Gross hematuria kidney stones/stent TECHNIQUE: Imaging protocol: Real-time ultrasound of the retroperitoneum with image documentation. Examination was focused on the kidneys. COMPARISON: RF Retrograde Pyelogram 04/14/2019 9:01 AM FINDINGS: Right kidney: No mass. Nonobstructing calculi and/or vascular calcifications. No hydronephrosis. Left kidney: 1.8 x 1.6 x 1.6 cm cyst. No solid mass. Nonobstructing calculi and/or vascular calcifications. No hydronephrosis. Prostate gland: Mildly enlarged. Bladder: Decompressed. Partially visualized left ureteral stent. IMPRESSION: 1. Nonobstructing bilateral calculi and/or vascular calcifications. Partially visualized left ureteral stent. No hydronephrosis. 2. Mildly enlarged prostate. Correlate with clinical exam and PSA levels. Electronically signed by: Celso Edouard On 04/16/2019 19:06:22 PM
[2019-04-16 20:00] VITALS: BP 108/64
[2019-04-16] MEDS ORDERED: ONDANSETRON 4MG/2ML VIAL (J2405) IV PRN (20:30)
[2019-04-16] MEDS: TEMAZEPAM 15 MG CAP PO SCH (21:03)
[2019-04-16 23:59] VITALS: BP 128/67
[2019-04-17 04:00] VITALS: BP 144/85
[2019-04-17 05:55] LABS: HEMATOCRIT 46.7 % (42.0-52.0); HEMOGLOBIN 14.9 g/dl (13.5-17.5); MEAN CORPUSCULAR HEMOGLOBIN 27.6 pg (27.0-33.0); MEAN CORPUSCULAR HGB CONC 31.9 g/dl (32.0-36.5); MEAN CORPUSCULAR VOLUME 86.5 fl (80.0-96.0); PLATELET COUNT, AUTOMATED 137 10^3/uL (150-450); WHITE BLOOD COUNT 9.9 10^3/uL (4.0-10.0)
[2019-04-17 06:06] LABS: INR 1.38; PROTHROMBIN TIME 16.7 SECONDS (11.8-14.0)
[2019-04-17 06:20] LABS: CALCIUM LEVEL 9.4 MG/DL (8.8-10.2); CREATININE FOR GFR 1.8 MG/DL (0.70-1.30); GLOMERULAR FILTRATION RATE 40.4 (>49); POTASSIUM SERUM 3.6 MEQ/L (3.5-5.1)
[2019-04-17] MEDS: SLF 3 ML SYR IV SCH ×2 (06:45→09:22)
[2019-04-17 08:00] VITALS: BP 130/82
[2019-04-17] MEDS ORDERED: LEVEMIR (INSULIN DETEMIR) 1 UNITS/0.01ML SC SCH (09:00)
[2019-04-17] MEDS ORDERED: ONDANSETRON 4MG/2ML VIAL (J2405) IV ONE (09:00)
[2019-04-17 09:20] VITALS: BP 130/82
[2019-04-17] MEDS: SERTRALINE HCL 50 MG TAB PO SCH (09:20)
[2019-04-17] MEDS: FEBUXOSTAT 40 MG TABLET (ULORIC) PO SCH (09:20)
[2019-04-17] MEDS: predniSONE 5 MG TAB PO SCH (09:20)
[2019-04-17] MEDS: CARVedilol 6.25 MG TAB PO SCH (09:20)
[2019-04-17] MEDS: ATORVASTATIN 20 MG TAB PO SCH (09:21)
[2019-04-17] MEDS: COLCHICINE 0.6 MG TAB PO SCH (09:21)
[2019-04-17] MEDS: HumaLOG INSULIN (NovoLOG) PER UNIT SC SCH (09:22)
[2019-04-17] MEDS: BUMETANIDE 1 MG TAB PO SCH (10:09)
--- NOTE | 2019-04-17 12:41 | DSES ---
DATE OF ADMISSION: 04/14/2019 DATE OF DISCHARGE: VOICE INTERCEPT TECHNICIAN: Dr. Jacobo Rcio CONSULTANTS DURING ADMISSION: Dr. Isra Chowdhury. Dr. Arturo Aguayo, urologist. PRIMARY DISCHARGE DIAGNOSES: 1. Fluid overload. 2. Acute congestive heart failure (CHF) exacerbation. 3. Systolic dysfunction. 4. History of kidney stones, status post lithotripsy with basket extraction of stones and bilateral stent placement with postoperative gross hematuria, most likely secondary to warfarin and Lovenox being given for chronic atrial fibrillation. 5. Subtherapeutic INR with attempts to bridge with Lovenox and Coumadin but developed gross hematuria. 6. Hypertension. 7. Morbid obesity. 8. Obstructive sleep apnea, not on continuous positive airway pressure (CPAP), on home oxygen at night. 9. Dyslipidemia. 10. Chronic kidney disease stage III. DISCHARGE MEDICATIONS: The patient's warfarin and Lovenox were discontinued temporarily for 2 days due to gross hematuria with stable hemoglobin, not requiring red blood cell transfusion. - atorvastatin 40 mg daily - Bumex 2 mg twice a day - Coreg 6.25 mg three times a day - colchicine 0.6 twice a day - vitamin D 50,000 units weekly - Uloric 80 mg daily - gabapentin 300 mg twice a day - glipizide 5 mg daily - insulin sliding scale - Levemir insulin - losartan 25 mg daily - metformin 1 gram twice a day - potassium chloride 40 mEq daily - prednisone 10 mg tablet to take 5 mg twice a day - sertraline 50 mg daily - temazepam 30 mg daily DISCHARGE INSTRUCTIONS: The patient's warfarin and Lovenox have been held due to recent gross hematuria but may resume at home to be managed by his garde manger to target INR of 2 to 3. The patient is to followup as previously scheduled with Dr. Aguayo and to followup with primary care provider within 5 days of hospital discharge. HOSPITAL COURSE: This is a 64-year-old male with a history of systolic heart failure, AICD, atrial fibrillation on chronic warfarin, coronary artery disease, coronary artery bypass graft (CABG), who was at same day surgery for cystoscopy for bilateral kidney stones, bilateral ureteroscopy, laser lithotripsy, basket extraction of stones, bilateral retrograde pyelogram with intraoperative interpretive imaging and bilateral ureteral stent placement. Postoperatively, he developed increasing shortness of breath and hypoxia requiring 2 liters of oxygen via nasal cannula. Chest x-ray done in the recovery room showed increase in pulmonary vascular congestion with engorged vessels. The patient does admit to having a 50 pound weight gain since he last saw his primary care provider with paroxysmal nocturnal dyspnea and three pillow orthopnea and slight dyspnea on exertion walking 5 to 10 feet. The patient admits to indiscretion with fluid restriction but keeps an eye on his salt intake. The patient was admitted to the progressive care unit (PCU) under telemetry monitoring. Cardiac markers, troponin negative for acute ischemia. Electrocardiogram (EKG) had no acute ST or T wave changes. The patient was diuresed initially with IV Lasix 40 every 6 hours with very minimal output of 690, no change in weight. Admission weight was 139.1 kg and did not respond to IV Lasix. Per the patient, the Bumex works better for him. He was placed on 2 mg of Bumex three times a day from 04/15/2019 to 04/16/2019 and was given Zaroxolyn prior to the first Bumex and diuresed out 6.9 liters of urine and was negative 5.258 liters. Weight decreased to 134.8 kg. On the second day, he was changed back to his normal 2 mg of Bumex twice a day, along with one dose of Zaroxolyn before the first Bumex was given. Diuresis of 4 liters and negative 3.4 liters on 04/16/2019. The patient noted gross hematuria. His warfarin and Lovenox were discontinued with recheck of hemoglobin every 6 hours, which did not change, hemoglobin of 15.2 and 14.9 on the day of discharge with resolution of bright red hematuria, currently pinkish in color. Renal ultrasound performed and showed stent in place, nonobstructive kidney stones and no hydronephrosis. Per Dr. Aguayo, warfarin is usually started 2 days after cystoscopy and ureteral stent placement. Due to recent gross hematuria, his warfarin had been held and may be resumed in 2 days at home and to be managed by his garde manger to target INR of 2 to 3. The patient did pass a home safety evaluation and is back to room air oxygen with clear lungs. Repeat chest x-ray shows improvement after 2 days of diuretic in the vascular markings with no pulmonary vascular congestion that was visible. The patient did well and is stable for discharge home. LABORATORIES ON DISCHARGE: White count 9.9, hemoglobin 14, hematocrit 46, platelet count 137. Sodium 137, potassium 3.6, chloride 97, bicarbonate 34, BUN 44, creatinine 1.9, glucose 267. Microbiology: Urine culture on 04/16/2019 with no growth. Imaging studies: Renal ultrasound showed nonobstructing bilateral kidney stones with partially visualized left ureteral stone. No hydronephrosis. Mildly enlarged prostate. Time spent on discharge: 30 minutes. The patient was instructed to keep to a 2 liter fluid restriction with daily weights and call his garde manger if more than 2 pound weight gain and to keep an eye on gross hematuria. [facility]
[2019-04-22 14:07] LABS: COMMENT Note: (.); Ca Ox Monohydrate 70 % (.); Uric Acid 25 % (.)
== END 2019-04-17 13:03 | disposition home or self-care (01) | DRG 981 ==
LOC: M SDC 06:00 → M ED INP 15:06 → M PCU 18:56
PROVIDERS: ADMIT General Practice; ATTEND General Practice
PROC: 0TC18ZZ Extirpation of Matter from Left Kidney, Via Natural or Artificial Opening Endoscopic (ICD-10-PCS; 2019-04-14)
PROC: 0T788DZ Dilation of Bilateral Ureters with Intraluminal Device, Via Natural or Artificial Opening Endoscopic (ICD-10-PCS; 2019-04-14)
PROC: 0TC08ZZ Extirpation of Matter from Right Kidney, Via Natural or Artificial Opening Endoscopic (ICD-10-PCS; principal; 2019-04-14 07:30)
DX: I13.0 Hypertensive heart and chronic kidney disease with heart failure and stage 1 through stage 4 chronic kidney disease, or unspecified chronic kidney disease (principal); I50.41 Acute combined systolic (congestive) and diastolic (congestive) heart failure; Z68.41 Body mass index [BMI] 40.0-44.9, adult; I48.20 Chronic atrial fibrillation, unspecified; I25.810 Atherosclerosis of coronary artery bypass graft(s) without angina pectoris; I25.10 Atherosclerotic heart disease of native coronary artery without angina pectoris; E53.8 Deficiency of other specified B group vitamins; N20.0 Calculus of kidney; E11.42 Type 2 diabetes mellitus with diabetic polyneuropathy; G47.33 Obstructive sleep apnea (adult) (pediatric); E78.5 Hyperlipidemia, unspecified; R97.20 Elevated prostate specific antigen [PSA]; M10.9 Gout, unspecified; M17.0 Bilateral primary osteoarthritis of knee; M19.071 Primary osteoarthritis, right ankle and foot; M19.072 Primary osteoarthritis, left ankle and foot; N18.3 Chronic kidney disease, stage 3 (moderate); F32.9 Major depressive disorder, single episode, unspecified; D64.9 Anemia, unspecified; I25.5 Ischemic cardiomyopathy; M48.061 Spinal stenosis, lumbar region without neurogenic claudication; E66.01 Morbid (severe) obesity due to excess calories; Z98.41 Cataract extraction status, right eye; Z98.42 Cataract extraction status, left eye; Z79.01 Long term (current) use of anticoagulants; Z79.82 Long term (current) use of aspirin; Z79.52 Long term (current) use of systemic steroids; Z79.899 Other long term (current) drug therapy; Z91.19 Patient's noncompliance with other medical treatment and regimen; Z96.0 Presence of urogenital implants; Z95.810 Presence of automatic (implantable) cardiac defibrillator; Z95.2 Presence of prosthetic heart valve; Z79.4 Long term (current) use of insulin; R31.0 Gross hematuria; T45.515A Adverse effect of anticoagulants, initial encounter

== ENCOUNTER 2019-06-11 06:09 | Day surgery (SDC) | payer MEDICARE, MEDICAID ==
[~2019-06-11] VITALS: Ht 177.8 cm; Wt 135.1 kg
[~2019-06-11 06:09] MED LIST changes: +ALLO100T PO; +ASPI81CH33 PO; +COLC1TAB14 PO; +ENOX100I3 SC; +FERR325T3 PO; +ISOS30TA4 PO; +KP F1200 PO; +LIDOCAINE 1% MDV 20ML VIAL SQ PRN; +LOSA50TA88 PO; -LR 1,000 ML IV ONE; +LR 1,000 ML IV SCH; +NORV5TAB PO; +OMEG100011 PO; +OMEP-218 PO; +POTA10TA17 PO; +SULF1TAB93 PO; +VITA1CAP25 PO; +VITA400T15 PO; +ZOLO50TA PO
[2019-06-11] MEDS ORDERED: CONRAY-60 60% 50ML VIAL (Q9961) As Ordered ONE (06:38)
[2019-06-11] MEDS ORDERED: LIDOCAINE 2% INJ 100 MG/5 ML SDV (FOR ANES.) As Ordered ONE (07:01)
[2019-06-11] MEDS ORDERED: ONDANSETRON 4MG/2ML VIAL (J2405) As Ordered ONE (07:01)
[2019-06-11] MEDS ORDERED: PROPOFOL 200 MG/20 ML VIAL As Ordered ONE ×2 (07:01→07:38)
[2019-06-11] MEDS ORDERED: dexameTHASONE 4 MG/ML 1ML VIAL (J1100) As Ordered ONE (07:01)
[2019-06-11] MEDS ORDERED: fentaNYL 100 MCG/2 ML INJECTION (J3010) As Ordered ONE (07:04)
[2019-06-11] MEDS ORDERED: MIDAZOLAM INJ 2 MG/2 ML VIAL (J2250) As Ordered ONE (07:04)
[2019-06-11] MEDS ORDERED: PHENYLephrine HCL 500 MCG/5 ML (100MCG/ML) SYRINGE (J2370) As Ordered ONE (08:04)
[2019-06-11] MEDS ORDERED: ePHEDrine SULFATE 25 MG/5 ML(5MG/ML) SYRINGE As Ordered ONE (08:15)
[2019-06-11] MEDS ORDERED: ONDANSETRON 4MG/2ML VIAL (J2405) IV PRN (10:30)
[2019-06-11] MEDS ORDERED: fentaNYL 100 MCG/2 ML INJECTION (J3010) IV PRN (10:30)
[2019-06-11] MEDS ORDERED: LR 1,000 ML IV SCH (10:30)
[2019-06-11] MEDS: NORCO, ANEXSIA 5/325MG TABLET (HYDROcodone/ACETAMINOPHEN) PO PRN ×2 (11:29→12:18)
[2019-06-11] MEDS ORDERED: NORCO, ANEXSIA 5/325MG TABLET (HYDROcodone/ACETAMINOPHEN) As Ordered ONE (12:16)
--- NOTE | 2019-06-11 12:37 | REP ---
RETROGRADE PYELOGRAM: Six views. HISTORY: Left-sided stent. 33 seconds of fluoroscopy time is reported. FINDINGS: A sequence of six last image hold fluoroscopically obtained spot radiographs of the abdomen document bilateral ureteral cannulation and right ureteral stenting. Electronically Signed by Du Fraire MD 06/11/2019 01:33 P
[2019-06-11 14:25] VITALS: BP 130/66
--- NOTE | 2019-06-11 15:56 | RO ---
DATE OF PROCEDURE: 06/11/2019 PREPROCEDURE DIAGNOSIS: Kidney stones. POSTPROCEDURE DIAGNOSIS: Kidney stones. PROCEDURE: Cystoscopy, bilateral ureteroscopy with right-sided laser lithotripsy and basket extraction of stones, right retrograde pyelogram with intraoperative interpretation of images, left ureteral stent removal, right ureteral stent exchange. SURGEON: Dr. Arturo Aguayo RENTAL CAR DELIVERER: None. ANESTHESIA: General. OPERATIVE INDICATIONS: This is a 64-year-old male with bilateral kidney stones with a fairly significantly sized stone on the right side and was brought to the operating room about a month or so ago for bilateral ureteroscopy, laser lithotripsy. At that time all the stones in his left side were removed. He still had at least a 2-2.5 cm stone remaining in the right kidney. He was brought back to the operating room to complete removal of all his kidney stones. DESCRIPTION OF PROCEDURE: The patient was brought to the operating room and general anesthesia was induced. Prophylactic antibiotics were infused. He was then placed in dorsal lithotomy position, prepped and draped in the usual sterile fashion. A rigid cystoscope was inserted into the urethral meatus and advanced into the bladder. The previously placed left ureteral stent was then withdrawn to the distal end protruding from the urethral meatus. I then advanced a guidewire up the left collecting system. The left ureteral stent was then removed. I then advanced the ureteral access sheath up into the left collecting system. I went up the access sheath with a flexible ureteroscope. This confirmed that all the stone fragments had passed and there was only tiny stone debris remaining inside the left kidney. At this point, the ureteral access sheath and ureteroscope were removed, and there were no stones seen inside the ureter. The guidewire was also removed. I then grasped the right ureteral stent and withdrew it until the distal end was protruding from the urethral meatus. I advanced a guidewire up the right stent and then removed the stent completely. I then advanced the ureteral access sheath over the wire and into the right collecting system. I then went up the access sheath with a flexible ureteroscope and within the upper pole calyx the remaining stone was seen. The stone was fragmented into smaller pieces using an Excalibur laser fiber. All the larger fragments were removed using a basket. The majority of the stones was dusted though into tiny enough pieces where they could ultimately pass. Once satisfied that only tiny stone fragments remained, a retrograde pyelogram was performed and was notable for moderate right hydronephrosis and no extravasation. I then withdrew the ureteroscope along with access sheath, and no additional stones were seen within the ureter. I then utilized the wire to advance a 7-Upper Sorbian x 22-32 cm JJ ureteral stent up into the right collecting system. The wire was removed and there were adequate curls of the stent in the right renal pelvis and in the bladder. The bladder was then emptied of all fluids and this marked the conclusion of procedure. The patient was then taken out of the dorsal lithotomy position, awakened from anesthesia and transported to recovery room in stable condition. Estimated blood loss: 5 mL. Complications: None. Specimen: Kidney stone fragments. Plan: The patient is to be seen in clinic in a few weeks for stent removal. We will get an x-ray prior to confirm that all the stones have passed.
== END 2019-06-11 14:45 | disposition home or self-care (01) ==
LOC: EEVIPCON 06:09 → M SDC 06:09
PROVIDERS: ATTEND Urology
DX: N20.0 Calculus of kidney (principal); I48.91 Unspecified atrial fibrillation; M10.9 Gout, unspecified; D64.9 Anemia, unspecified; G47.30 Sleep apnea, unspecified; E11.9 Type 2 diabetes mellitus without complications; Z79.82 Long term (current) use of aspirin; Z95.810 Presence of automatic (implantable) cardiac defibrillator; Z85.46 Personal history of malignant neoplasm of prostate; Z79.4 Long term (current) use of insulin; Z79.899 Other long term (current) drug therapy
CPT/HCPCS: 52356; 74420; 82360; 88300; C1769; C1894; C2617; J0690; J2250; J2370; J2405; J3010; Q9961

== ENCOUNTER 2020-02-07 13:19 | Emergency (ER) | payer MEDICARE, MEDICAID ==
[~2020-02-07] VITALS: Ht 177.8 cm; Wt 134.4 kg
[~2020-02-07 13:19] MED LIST changes: -ASPI81TA85 PO; +ASPI81TA86 PO; -COUM6TAB PO; +COUM6TAB10 PO; -LIDOCAINE 1% MDV 20ML VIAL SQ PRN; -LR 1,000 ML IV SCH; -METF-791 PO; +METF-838 PO; -ceFAZolin SOD 1 GM in D5W MINI-BAG PLUS 50 ML IV ONE; -ceFAZolin SOD 2 GM in IV 1 EA IV ONE
[2020-02-07 15:06] VITALS: BP 138/87
== END 2020-02-07 15:07 | disposition home or self-care (01) ==
LOC: M ED 13:19
DX: Z48.00 Encounter for change or removal of nonsurgical wound dressing (principal); R79.89 Other specified abnormal findings of blood chemistry; Z79.4 Long term (current) use of insulin; Z79.899 Other long term (current) drug therapy

== ENCOUNTER → 2020-02-26 | Outpatient (REF) | payer MEDICARE, MEDICAID ==
[~2020-02-26] MED LIST changes: +MECL-86 PO; +NOVOINJ2 SC; +TAMS1CAP17 PO; +TRAZ-252 PO; +WARF-58 PO
[2020-02-26 19:49] LABS: CREATININE, URINE 56.3 MG/DL; MAU/CREAT RATIO 413.8 MCG/MG (0.0-30.0)
== END ==
LOC: M LAB REF 16:57
PROVIDERS: ATTEND Nurse Practitioner Family
DX: E11.65 Type 2 diabetes mellitus with hyperglycemia (principal); Z79.01 Long term (current) use of anticoagulants

== ENCOUNTER 2020-03-20 05:17 | Inpatient (IN) | payer MEDICARE, MEDICAID ==
[~2020-03-20] VITALS: Ht 170.2 cm; Wt 134.5 kg
[2020-03-20] VITALS (12 sets, daily range): BP systolic 126–149; BP diastolic 65–84; O2SAT 91–97
[~2020-03-20 05:17] MED LIST changes: -MECL-86 PO; -NOVOINJ2 SC; -TAMS1CAP17 PO; -TRAZ-252 PO; -WARF-58 PO
[2020-03-20] MEDS ORDERED: GLUCOSE 4GM CHEW TABLET PO PRN (08:45)
[2020-03-20] MEDS ORDERED: GLUCAGON INJ 1MG VIAL SC PRN (08:45)
[2020-03-20] MEDS ORDERED: DEXTROSE 50% 50 ML SYRINGE IV PRN (08:45)
--- NOTE | 2020-03-20 08:45 | HPEPDOC ---
[facility] Medical History & Physical Date of Admission Mar 20, 2020 Date of Service: Mar 20, 2020 Primary Care Physician: A History and Physical CHIEF COMPLAINT: Shortness of breath HISTORY OF PRESENT ILLNESS: 65-year-old gentleman transferred here from [facility] for 4 day history of worsening shortness of breath. Patient notes significant dyspnea on exertion, however, he denies orthopnea. He also notes intermittent cough, occasionally productive of clear sputum. He states he has never been admitted for congestive heart failure. He denies chest pain. He also notes a fall where he states his legs gave out. He does admit to head trauma. He denies headaches, dizziness, changes in vision. PAST MEDICAL HISTORY: #CAD/CABG x 2 - 2006, revision 2016 with AVR #AVR - bioprosthetic (2015) #Afib #HFrEF - severe - s/p biventricular AICD #HTN #DM #DLP #Gout #DAVID does not tolerate CPAP - uses 2.5 L O2 at night #CKD III #BPH #ANEMIA PAST SURGICAL HISTORY: #AVR - 2014 ALLERGIES: Please see below. REVIEW OF SYSTEMS: Negative except as per HPI. HOME MEDICATIONS: Please see below. PHYSICAL EXAMINATION: VITAL SIGNS: See below General: NAD, lying comfortably in bed HEENT: NC/AT, EOMI, PERRL Lungs: CTA B/L Heart: +S1S2, RRR Abd: soft, NT, +BS, obese Ext: trace peripheral edema LABORATORY DATA: See below. MICROBIOLOGY: Please see below. A/P: 65 yo male transferred from [facility] apparently for decompensated heart failure, falls. Patient with extensive PMHx including CAD/CABG, AVR, Afib, CHF, HTN, DM. #HFrEF - states he recently had an echocardiogram - follow with Dr. Gómez - will obtain results - check card markers - IV lasix, I/O's, daily weights - telemetry #CAD #DM #HTN #DLP #chronic Afib #morbid obesity #DVT prophylaxis Home Medications Scheduled Atorvastatin Calcium (Atorvastatin Calcium) 40 Mg Tab, 40 MG PO DAILY Bumetanide (Bumetanide) 2 Mg Tablet, 2 MG PO BID Carvedilol (Carvedilol) 6.25 Mg Tablet, 6.25 MG PO BID Colchicine (Colchicine) 0.6 Mg Tablet, 0.6 MG PO BID Febuxostat (Uloric) 40 Mg Tab, 40 MG PO DAILY Ferrous Sulfate (Ferrous Sulfate) 325 Mg Tablet.dr, 325 MG PO DAILY Fish Oil/Dha/Epa (Fish Oil 1,200 mg Fish Oil) 1 Each Capsule, 1 CAP PO DAILY Gabapentin (Neurontin) 300 Mg Cap, 300 MG PO BID Glipizide (Glipizide) 5 Mg Tab, 5 MG PO QPM WITH DINNER Insulin Aspart Prot/Insuln Asp (Novolog Mix 70-30 Flexpen Syrn) 100 Unit/1 Ml Insuln.pen, 1 DOSE SC QHS PER SLIDING SCALE Insulin Detemir (Levemir) 100 Unit/1 Ml Vial, 1 DOSE SC QHS PER SLIDING SCALE Metformin HCl (Metformin HCl ER) 500 Mg Tab.er.24h, 1,000 MG PO BID Potassium Chloride (Potassium Chloride) 10 Meq Tab.er.prt, 20 MEQ PO BID Prednisone (Prednisone) 5 Mg Tablet, 5 MG PO BID Sertraline Hcl (Sertraline HCl) 50 Mg Tab, 50 MG PO DAILY Tamsulosin Hcl (Tamsulosin HCl) 0.4 Mg Capsule, 0.4 MG PO DAILY Trazodone HCl (Trazodone HCl) 50 Mg Tablet, 50 MG PO QHS Warfarin Sodium (Warfarin Sodium) 3 Mg Tablet, 6 MG PO QPM @ 1800 Scheduled PRN Meclizine HCl (Meclizine HCl) 25 Mg Tablet, 25 MG PO BID PRN for DIZZINESS Allergies Coded Allergies: No Known Allergies (Unverified , 05/22/19) A-FIB/CHADSVASC A-FIB History Current/History of A-Fib/PAF?: Yes Current PO Anticoag Therapy: Yes JACQUELINE MAC MD Mar 20, 2020 08:45
[2020-03-20] MEDS ORDERED: MECL-86 PO (09:23)
[2020-03-20] MEDS ORDERED: NOVOINJ2 SC (09:23)
[2020-03-20] MEDS ORDERED: TRAZ-252 PO (09:23)
[2020-03-20] MEDS ORDERED: WARF-58 PO (09:23)
[2020-03-20] MEDS ORDERED: TAMS1CAP17 PO (09:23)
[2020-03-20] MEDS ORDERED: COLC1TAB13 PO (09:23)
[2020-03-20] MEDS ORDERED: SLF 3 ML SYR IV PRN (09:30)
[2020-03-20] MEDS ORDERED: MECLIZINE 25 MG TABLET PO PRN (10:45)
[2020-03-20] MEDS: SERTRALINE HCL 50 MG TAB PO SCH (10:57)
[2020-03-20] MEDS: GABAPENTIN 300 MG CAP PO SCH ×2 (10:57→21:12)
[2020-03-20] MEDS: ATORVASTATIN 20 MG TAB PO SCH (10:57)
[2020-03-20] MEDS: FERROUS SULFATE 325MG TAB PO SCH (10:57)
[2020-03-20] MEDS: predniSONE 5 MG TAB PO SCH ×2 (10:57→21:13)
[2020-03-20] MEDS: ACETAMINOPHEN TAB 650MG DOSE (2X325MG) PO PRN ×2 (10:58→23:36)
[2020-03-20] MEDS: CARVedilol 6.25 MG TAB PO SCH ×2 (10:58→21:13)
[2020-03-20] MEDS: TAMSULOSIN 0.4 MG CAP PO SCH (11:01)
[2020-03-20] MEDS: COLCHICINE 0.6 MG TAB PO SCH ×2 (11:20→21:13)
[2020-03-20] MEDS: FEBUXOSTAT 40 MG TABLET (ULORIC) PO SCH (11:20)
[2020-03-20 11:27] LABS: BASO % 0.5 % (0.0-1.0); EOS # 0.1 10^3/uL (0.0-0.5); EOS % 1.8 % (0.0-3.0); HEMOGLOBIN 12.9 g/dl (13.5-17.5); LYMPH # 1.8 10^3/uL (1.5-5.0); LYMPH % 22.9 % (24.0-44.0); MEAN CORPUSCULAR HEMOGLOBIN 28.6 pg (27.0-33.0); MEAN CORPUSCULAR HGB CONC 32.3 g/dl (32.0-36.5); MEAN CORPUSCULAR VOLUME 88.7 fl (80.0-96.0); MONO # 0.8 10^3/uL (0.0-0.8); MONO % 10.4 % (0.0-5.0); NEUTROPHILS # 4.9 10^3/uL (1.5-8.5); PLATELET COUNT, AUTOMATED 124 10^3/uL (150-450); RED BLOOD COUNT 4.51 10^6/uL (4.30-6.10); WHITE BLOOD COUNT 7.7 10^3/uL (4.0-10.0)
[2020-03-20 11:40] LABS: INR 2.66
[2020-03-20] MEDS: HumaLOG INSULIN (NovoLOG) PER UNIT SC SCH ×3 (12:00→21:14)
[2020-03-20 12:10] LABS: ALBUMIN 3.1 GM/DL (3.2-5.2); ALT/SGPT 39 U/L (12-78); BILIRUBIN,TOTAL 1.9 MG/DL (0.2-1.0); BLOOD UREA NITROGEN 37 MG/DL (7-18); CARBON DIOXIDE LEVEL 27 MEQ/L (21-32); CHLORIDE LEVEL 106 MEQ/L (98-107); CK-MB VALUE MASS 1.3 NG/ML (<3.6); CPK CREATINE PHOSPHOKINASE 68 U/L (39-308); GLOMERULAR FILTRATION RATE > 60.0 (>49); GLUCOSE, FASTING 162 MG/DL (70-100); MB/CK RELATIVE INDEX 1.91 (< OR =4); NT-PRO BNP 6656 PG/ML (<125); POTASSIUM SERUM 3.4 MEQ/L (3.5-5.1); SODIUM LEVEL 143 MEQ/L (136-145); TOTAL PROTEIN 6.1 GM/DL (6.4-8.2); TROPONIN I 0.08 NG/ML (< 0.10)
[2020-03-20] MEDS: SLF 3 ML SYR IV SCH ×2 (13:13→21:14)
[2020-03-20] MEDS: FUROSEMIDE 40MG/4ML VIAL (J1940) IV SCH (15:26)
[2020-03-20] MEDS: WARFARIN SOD 3MG TAB PO SCH (16:52)
[2020-03-20] MEDS ORDERED: RAMELTEON 8 MG TAB (ROZEREM) PO ONE (21:00)
[2020-03-20] MEDS: traZODone 50 MG TAB PO SCH (21:12)
[2020-03-21] VITALS (15 sets, daily range): BP systolic 115–147; BP diastolic 57–84; O2SAT 92–97
[2020-03-21] MEDS: FUROSEMIDE 40MG/4ML VIAL (J1940) IV SCH ×3 (00:41→15:22)
[2020-03-21] MEDS: SLF 3 ML SYR IV SCH ×3 (04:27→21:38)
[2020-03-21 05:00] LABS: HEMATOCRIT 37.8 % (42.0-52.0); HEMOGLOBIN 12.2 g/dl (13.5-17.5); MEAN CORPUSCULAR HEMOGLOBIN 28.8 pg (27.0-33.0); MEAN CORPUSCULAR HGB CONC 32.3 g/dl (32.0-36.5); MEAN CORPUSCULAR VOLUME 89.4 fl (80.0-96.0); PLATELET COUNT, AUTOMATED 112 10^3/uL (150-450); RED BLOOD COUNT 4.23 10^6/uL (4.30-6.10); WHITE BLOOD COUNT 5.9 10^3/uL (4.0-10.0)
[2020-03-21] MEDS ORDERED: POTASSIUM CHLORIDE 10 MEQ SR TABLET PO ONE (05:00)
[2020-03-21 05:21] LABS: CALCIUM LEVEL 8.3 MG/DL (8.8-10.2); CREATININE FOR GFR 1.32 MG/DL (0.70-1.30); GLOMERULAR FILTRATION RATE 57.6 (>49); POTASSIUM SERUM 3.5 MEQ/L (3.5-5.1)
[2020-03-21 08:11] LABS: INR 2.83; PROTHROMBIN TIME 30.4 SECONDS (12.5-14.3)
[2020-03-21] MEDS: HumaLOG INSULIN (NovoLOG) PER UNIT SC SCH ×4 (08:12→20:38)
[2020-03-21] MEDS: cefTRIAXone SOD 1 GM in D5W MINI-BAG PLUS 50 ML IV SCH (08:12)
[2020-03-21] MEDS: COLCHICINE 0.6 MG TAB PO SCH ×2 (08:13→20:38)
[2020-03-21] MEDS: ATORVASTATIN 20 MG TAB PO SCH (08:13)
[2020-03-21] MEDS: GABAPENTIN 300 MG CAP PO SCH ×2 (08:13→20:37)
[2020-03-21] MEDS: FERROUS SULFATE 325MG TAB PO SCH (08:13)
[2020-03-21] MEDS: SERTRALINE HCL 50 MG TAB PO SCH (08:13)
[2020-03-21] MEDS: FEBUXOSTAT 40 MG TABLET (ULORIC) PO SCH (08:13)
[2020-03-21] MEDS: TAMSULOSIN 0.4 MG CAP PO SCH (08:13)
[2020-03-21] MEDS: predniSONE 5 MG TAB PO SCH ×2 (08:14→20:37)
[2020-03-21] MEDS: CARVedilol 6.25 MG TAB PO SCH ×2 (08:15→20:38)
[2020-03-21] MEDS ORDERED: PREVNAR 13 VACCINE SYRINGE IM ONE (09:00)
--- NOTE | 2020-03-21 09:20 | IPNPDOC ---
Text Note Date of Service The patient was seen on 03/21/20. NOTE Subjective: Patient seen and examined at bedside. No acute overnight events reported. Patient has no new medical complaints this morning. He denies shortness of breath. He denies orthopnea. He denies cough. He denies dysuria. He feels his breathing is at his baseline. Objective: VITAL SIGNS: See below General: NAD, lying comfortably in bed HEENT: NC/AT, EOMI, PERRL Lungs: CTA B/L Heart: +S1S2, RRR Abd: soft, NT, +BS, obese Ext: no edema A/P: A/P: 65 yo male transferred from [facility] apparently for decompensated heart failure, falls. Patient with extensive PMHx including CAD/CABG, AVR, Afib, CHF, HTN, DM. #HFrEF - states he recently had an echocardiogram - follow with Dr. Gómez - will obtain results - card markers negative - CT chest for further eval - supplemental oxygen as needed - IV lasix, I/O's, daily weights - telemetry #acute hypoxic respiratory failure - as above - wean O2 as tolerated #UTI - on ceftriaxone - waiting for labs from [facility] regarding cultures/sensitivities #CAD #DM #HTN #DLP #chronic Afib - coumadin for a/c #morbid obesity - further complicates care #DVT prophylaxis - as above - therapeutic on coumadin VS,Fishbone, I+O VS, Fishbone, I+O Laboratory Tests 03/20/20 10:25 03/21/20 04:33 Vital Signs Date Time Temp Pulse Resp B/P (MAP) Pulse Ox O2 Delivery O2 Flow Rate FiO2 03/21/20 08:15 80 115/62 03/21/20 08:00 97.3 18 98 Nasal Cannula 2.0 I&O- Last 24 Hours up to 6 AM 03/21/20 05:59 Intake Total 1320 ml Output Total 1200 ml Balance 120 ml JACQUELINE MAC MD Mar 21, 2020 09:19
--- NOTE | 2020-03-21 10:16 | REPVR ---
PROCEDURE INFORMATION: Exam: CT Chest Without Contrast Exam date and time: 03/21/2020 9:37 AM Age: 65 years old Clinical indication: Shortness of breath; Additional info: Congestive heart failure TECHNIQUE: Imaging protocol: Computed tomography of the chest without contrast. Coronal and sagittal reformats were created and reviewed. 3D rendering (Not supervised by radiologist): MIP and/or 3D reconstructed images were created by the technologist. Radiation optimization: All CT scans at this facility use at least one of these dose optimization techniques: automated exposure control; mA and/or kV adjustment per patient size (includes targeted exams where dose is matched to clinical indication); or iterative reconstruction. COMPARISON: 1. [place] PORTABLE CHEST X-RAY 04/16/2019 8:[address] ABD PELVIS W/O CONTRAST 09/23/2018 3:51:28 PM FINDINGS: Tubes, catheters and devices: Cardiac conduction assist device leads are present terminating within the right ventricle and within a left ventricular epicardial vein via the coronary sinus. Thyroid: Unremarkable as visualized. Lungs: The trachea is unremarkable. Mild subpleural reticulation of the bilateral lungs with a lower lung predominance. No consolidation. Mild patchy ill-defined central and peripheral ground-glass airspace opacities of the bilateral lungs with an upper lung predominance. Mild scattered bilateral smooth interlobular septal thickening. Pleural space: No pleural effusion, mass or calcification. No pneumothorax. Heart: Prosthetic aortic valve. Heavy coronary arterial atherosclerotic calcification. Status post coronary arterial bypass grafting. Mitral annular and mitral valve calcifications. The heart is severely enlarged. The bilateral atria and left ventricle are enlarged. No pericardial effusion. Mediastinal space: No abnormal esophageal dilation. No mediastinal mass. Pulmonary arteries: The main pulmonary arterial trunk is dilated measuring 3.4 cm in diameter. Aorta: Widespread upper abdominal atherosclerotic calcifications. Moderate aortic atherosclerosis. Fusiform dilatation of the ascending aorta measuring 4.3 cm in diameter. Lymph nodes: No enlarged lymph nodes. Bones/joints: The patient is status post median sternotomy. Multiple sternotomy wires remain fractured. No osseous bridging callus at the sternotomy site. Degenerative spine disease. Soft tissues: Unremarkable. IMPRESSION: 1. Pulmonary findings compatible with mild interstitial and alveolar pulmonary edema. A pulmonary infection (for example, an atypical pulmonary infection such as viral pneumonia) is not excluded. 2. Severe cardiomegaly. Widespread atherosclerosis. Status post coronary artery bypass surgery. 3. Fusiform dilatation of the ascending aorta measuring 4.3 cm in diameter. Electronically signed by: Camilo Bartlett On 03/21/2020 10:16:43 AM
[2020-03-21 12:21] LABS: ALBUMIN 2.8 GM/DL (3.2-5.2); BILIRUBIN,DIRECT 0.4 MG/DL (0.0-0.2); BILIRUBIN,TOTAL 1.2 MG/DL (0.2-1.0); TOTAL PROTEIN 5.7 GM/DL (6.4-8.2)
[2020-03-21] MEDS: WARFARIN SOD 3MG TAB PO SCH (17:57)
[2020-03-21] MEDS: traZODone 50 MG TAB PO SCH (20:37)
[2020-03-22] VITALS (10 sets, daily range): BP systolic 136–164; BP diastolic 67–82; O2SAT 94–97
[2020-03-22] MEDS: FUROSEMIDE 40MG/4ML VIAL (J1940) IV SCH ×3 (00:07→16:31)
[2020-03-22] MEDS: SLF 3 ML SYR IV SCH ×3 (04:31→22:03)
[2020-03-22 05:16] LABS: HEMATOCRIT 37.1 % (42.0-52.0); MEAN CORPUSCULAR HEMOGLOBIN 29.1 pg (27.0-33.0); MEAN CORPUSCULAR HGB CONC 32.3 g/dl (32.0-36.5); MEAN CORPUSCULAR VOLUME 89.8 fl (80.0-96.0); PLATELET COUNT, AUTOMATED 127 10^3/uL (150-450); RED BLOOD COUNT 4.13 10^6/uL (4.30-6.10)
[2020-03-22 05:25] LABS: PROTHROMBIN TIME 31.9 SECONDS (12.5-14.3)
[2020-03-22 05:39] LABS: CALCIUM LEVEL 8.3 MG/DL (8.8-10.2); CREATININE FOR GFR 1.35 MG/DL (0.70-1.30); GLOMERULAR FILTRATION RATE 56.1 (>49); POTASSIUM SERUM 3.4 MEQ/L (3.5-5.1)
[2020-03-22] MEDS: HumaLOG INSULIN (NovoLOG) PER UNIT SC SCH ×4 (07:54→22:20)
[2020-03-22] MEDS: SERTRALINE HCL 50 MG TAB PO SCH (07:55)
[2020-03-22] MEDS: GABAPENTIN 300 MG CAP PO SCH ×2 (07:55→22:01)
[2020-03-22] MEDS: FERROUS SULFATE 325MG TAB PO SCH (07:55)
[2020-03-22] MEDS: FEBUXOSTAT 40 MG TABLET (ULORIC) PO SCH (07:55)
[2020-03-22] MEDS: CARVedilol 6.25 MG TAB PO SCH ×2 (07:55→22:02)
[2020-03-22] MEDS: ATORVASTATIN 20 MG TAB PO SCH (07:55)
[2020-03-22] MEDS: COLCHICINE 0.6 MG TAB PO SCH ×2 (07:55→22:02)
[2020-03-22] MEDS: TAMSULOSIN 0.4 MG CAP PO SCH (07:55)
[2020-03-22] MEDS: predniSONE 5 MG TAB PO SCH ×2 (07:55→22:02)
[2020-03-22] MEDS: cefTRIAXone SOD 1 GM in D5W MINI-BAG PLUS 50 ML IV SCH (07:56)
[2020-03-22] MEDS ORDERED: POTASSIUM CHLORIDE 10 MEQ SR TABLET PO ONE (12:45)
--- NOTE | 2020-03-22 13:32 | IPNPDOC ---
Text Note Date of Service The patient was seen on 03/22/20. NOTE Subjective: Mr. Moi Newell is a 65-year-old male patient seen at bedside on 03/22/2020. He denies having any acute events overnight. He reports his shortness of breath and cough has been improved. He feels his breathing is back to his baseline. He denies having any chest pain, fever, chills, nausea, vomiting, dysuria. Objective: General: Patient is awake, alert, oriented times three, no apparent distress. Eyes: Conjunctiva clear, pupils equal round and reactive to light and accommodation. EOM full, Fundus: not visualized. ENT: Hearing Bilateral normal. No nasal deviation. Cardiovascular: S1, S2, normal rhythm, no murmur, rub, or gallop. Respiratory: Clear breath sounds heard bilaterally, No rhonchi, wheezes or rubs heard. Abdomen: Soft, bowel sounds positive, no bruits. Extremities: No clubbing or cyanosis. Trace pedal edema nonpitting. Spine: No kyphosis, no para-spinal tenderness, no costovertebral tenderness. Central nervous system (SENIOR DESIGN ENGINEERING SPECIALIST): Awake, alert and fully oriented. Skin: No rashes, lesions, ulcerations, subcutaneous nodules or induration. Assessment: Is a 65-year-old male patient who was transferred from [facility] for decompensated heart failure, falls. Patient has an extensive past medical history including coronary artery disease/CABG, ARBbioprosthetic's in 2016, A. fib on warfarin at home, HFrEF severe with status post biventricular AICD, HTN, DM type II, gout, DAVID and uses 2.5 L of oxygen at night, CKD III. Plan: 1. HFrEF: The patient he recently had echocardiogramfollows with Dr. Gómez. Will continue IV Lasix 40 mg, monitor I's and O's and daily weights. Continue telemetry. 2. Urinary infection: Patient is on ceftriaxone IV for now. Patient had urine analysis at [facility] and and the sensitivities were faxed in. Will switch him to oral medication on discharge(Augmentin by mouth 875 mg twice a day) 3. Chronic A. fib: Coumadin for A/C 4. Morbid obesity: Atorvastatin 40 mg by mouth. 5. DVT prophylaxis: On Coumadin, therapeutic INR-3. 6. Diabetes mellitus: Patient takes NovoLog mix 70-30 vial at home. Patient is on insulin lispro 2 units sc during the hospital stay. 7. Hypertension: His blood pressure today morning was 148/67. 8. Dyslipidemia: Continue atorvastatin 40 mg. 9. Coronary artery disease: Coreg 6.25 mg by mouth twice a day 10. Gout: Continue colchicine 0.6 MG, prednisone 5 mg by mouth twice a day. Continue Febuxostat 40mg by mouth daily. VS,Fishbone, I+O VS, Fishbone, I+O Laboratory Tests 03/22/20 04:48 Vital Signs Date Time Temp Pulse Resp B/P (MAP) Pulse Ox O2 Delivery O2 Flow Rate FiO2 03/22/20 11:45 97.6 80 18 148/67 (94) 96 Nasal Cannula 2.0 I&O- Last 24 Hours up to 6 AM 03/22/20 06:00 Intake Total 1830 ml Output Total 3195 ml Balance -1365 ml GME ATTESTATION GME ATTESTATION My faculty preceptor for this patient encounter was physically present during the encounter and was fully available. All aspects of the patient interview, examination, medical decision making process, and medical care plan development were reviewed and approved by the faculty preceptor. The faculty preceptor is aw are and concurs with the plan as stated in the body of this note and will attest to such by his/her cosignature. ATTENDING NOTE Patient seen and examined independently. Agree with resident's note. Rachel Ordonez MD Mar 22, 2020 13:32 SAM TRAN MD Apr 10, 2020 14:02 JACQUELINE MAC MD Apr 12, 2020 14:14
[2020-03-22] MEDS: WARFARIN SOD 3MG TAB PO SCH (16:31)
[2020-03-22] MEDS: traZODone 50 MG TAB PO SCH (22:02)
[2020-03-23] VITALS (7 sets, daily range): BP systolic 122–145; BP diastolic 79–81; O2SAT 93–96
[2020-03-23] MEDS: FUROSEMIDE 40MG/4ML VIAL (J1940) IV SCH ×2 (00:15→08:29)
[2020-03-23 05:16] LABS: HEMATOCRIT 37.5 % (42.0-52.0); HEMOGLOBIN 11.9 g/dl (13.5-17.5); MEAN CORPUSCULAR HEMOGLOBIN 28.8 pg (27.0-33.0); MEAN CORPUSCULAR HGB CONC 31.7 g/dl (32.0-36.5); MEAN CORPUSCULAR VOLUME 90.8 fl (80.0-96.0); PLATELET COUNT, AUTOMATED 131 10^3/uL (150-450); RED BLOOD COUNT 4.13 10^6/uL (4.30-6.10); WHITE BLOOD COUNT 5.4 10^3/uL (4.0-10.0)
[2020-03-23 05:28] LABS: CALCIUM LEVEL 8.1 MG/DL (8.8-10.2); CREATININE FOR GFR 1.32 MG/DL (0.70-1.30); GLOMERULAR FILTRATION RATE 57.6 (>49); INR 3.5; POTASSIUM SERUM 3.3 MEQ/L (3.5-5.1); PROTHROMBIN TIME 35.9 SECONDS (12.5-14.3)
[2020-03-23] MEDS: SLF 3 ML SYR IV SCH ×2 (06:12→14:16)
[2020-03-23] MEDS ORDERED: POTASSIUM CHLORIDE 10 MEQ SR TABLET PO ONE (07:00)
[2020-03-23] MEDS: HumaLOG INSULIN (NovoLOG) PER UNIT SC SCH ×2 (07:30→13:46)
[2020-03-23] MEDS: COLCHICINE 0.6 MG TAB PO SCH (08:27)
[2020-03-23] MEDS: cefTRIAXone SOD 1 GM in D5W MINI-BAG PLUS 50 ML IV SCH (08:27)
[2020-03-23] MEDS: TAMSULOSIN 0.4 MG CAP PO SCH (08:27)
[2020-03-23] MEDS: FEBUXOSTAT 40 MG TABLET (ULORIC) PO SCH (08:27)
[2020-03-23] MEDS: ATORVASTATIN 20 MG TAB PO SCH (08:27)
[2020-03-23] MEDS: SERTRALINE HCL 50 MG TAB PO SCH (08:28)
[2020-03-23] MEDS: predniSONE 5 MG TAB PO SCH (08:28)
[2020-03-23] MEDS: CARVedilol 6.25 MG TAB PO SCH (08:28)
[2020-03-23] MEDS: FERROUS SULFATE 325MG TAB PO SCH (08:28)
[2020-03-23] MEDS: GABAPENTIN 300 MG CAP PO SCH (08:28)
[2020-03-23] MEDS ORDERED: AMOX875T2 PO (11:16)
--- NOTE | 2020-03-23 14:22 | DS.PDOC ---
Discharge Summary General Date of Admission Mar 20, 2020 at 08:10 Date of Discharge `Mar 23, 2020 Primary Care Physician: JETHRO CLOUD PIC Discharge Summary PROCEDURES PERFORMED DURING STAY: [None]. ADMITTING DIAGNOSES: 1. Urinary tract infection 2. CHF [HFrEF- S/p biventricular AICD] 3. A. fib 4. Diabetes mellitus 5. Dyslipidemia 6. Gout 7. Hypertension 8. BPH 6. DAVID DISCHARGE DIAGNOSES: 1. CHF( HFrEF) 2. A. fib on anticoagulation. 3. Diabetes mellitus 4. Dyslipidemia 5. Gout 6. Hypertension 7. BPH 8. DAVID COMPLICATIONS/CHIEF COMPLAINT: Chf Exacerbation. HISTORY OF PRESENT ILLNESS: 65-year-old male patient who was transferred from [facility] for a 4 day history of worsening shortness of breath. Patient reports significant dyspnea on exertion however denies orthopnea, but noted to have pedal edema extending up to his knees. He states he has intermittent cough with clear sputum production. He denies having any chest pain he reports a fall and says his legs gave out, he admits having a head trauma. He denies headaches, dizziness, change in vision, or seizure-like activity during the fall.. HOSPITAL COURSE: Patient was admitted to the hospital. He was started on IV Lasix, strict I's and O's. He was in PCU and placed on telemetry for further monitoring. As per his UTI he was started on ceftriaxone IV. Patient was feeling well after the diuresis and his shortness of breath improved. And his edema decreased gradually. He was continued to be on strict fluid restriction. He was initially on 2 L of oxygen saturating at 97% which gradually improved and now on room air. DISCHARGE MEDICATIONS: Please see below. ALLERGIES: Please see below. PHYSICAL EXAMINATION ON DISCHARGE: VITAL SIGNS: Please see below. General: Patient is awake, alert, oriented times three, no apparent distress. Eyes: Conjunctiva clear, pupils equal round and reactive to light and accommodation. EOM full, Fundus: not visualized. ENT: Hearing Bilateral normal. No nasal deviation. Cardiovascular: S1, S2, normal rhythm, no murmur, rub, or gallop. Respiratory: Clear breath sounds heard bilaterally, No rhonchi, wheezes or rubs heard. Abdomen: Soft, bowel sounds positive, no bruits. Extremities: No clubbing or cyanosis. Trace pedal edema 1+. Spine: No kyphosis, no para-spinal tenderness, no costovertebral tenderness. Central nervous system (ENGRAVER LETTER): Awake, alert and fully oriented. Skin: No rashes, lesions, ulcerations, subcutaneous nodules or induration. LABORATORY DATA: Please see below. IMAGING: CT chest without contrast: IMPRESSION: 1. Pulmonary findings compatible with mild interstitial and alveolar pulmonary edema. A pulmonary infection (for example, an atypical pulmonary infection such as viral pneumonia) is not excluded. 2. Severe cardiomegaly. Widespread atherosclerosis. Status post coronary artery bypass surgery. 3. Fusiform dilatation of the ascending aorta measuring 4.3 cm in diameter. PROGNOSIS: [Good] ACTIVITY: [As tolerated]. DIET: Sodium restriction diet, low fluid intake less than 2 L per day. DISCHARGE PLAN: Continue to fluid restrict. Follow with your PCP in 3-5 days. Follow with your head baggage porter for further management regarding cardiac issues. DISPOSITION: Home DISCHARGE INSTRUCTIONS: 1. Follow with your PCP in 3-5 days. 2. Low-sodium diet, restricted fluid intake to 2 L per day. 3. Start taking Augmentin 875 MG for 4 days. ITEMS TO FOLLOWUP ON ON OUTPATIENT: 1. Cardiology. DISCHARGE CONDITION: [Stable]. TIME SPENT ON DISCHARGE: [30] minutes. Vital Signs/I&Os Vital Signs Date Time Temp Pulse Resp B/P (MAP) Pulse Ox O2 Delivery O2 Flow Rate FiO2 03/23/20 08:28 82 122/81 03/23/20 07:29 99.3 18 95 Room Air 03/23/20 04:00 2.0 l I&O- Last 24 Hours up to 6 AM 03/23/20 06:00 Intake Total 2280 ml Output Total 2050 ml Balance 230 ml Laboratory Data Labs 24H Laboratory Tests 2 03/22/20 12:34: Bedside Glucose (Misc Panel) 251H 03/22/20 17:59: Bedside Glucose (Misc Panel) 236H 03/22/20 22:10: Bedside Glucose (Misc Panel) 262H 03/23/20 04:36: Nucleated Red Blood Cells % (auto) 0.0, Prothrombin Time 35.9H, Prothromb Time International Ratio 3.50, Anion Gap 8, Glomerular Filtration Rate 57.6, Calcium Level 8.1L CBC/BMP Laboratory Tests 03/23/20 04:36 FSBS Laboratory Tests Test 03/22/20 12:34 03/22/20 17:59 03/22/20 22:10 Range/Units Bedside Glucose (Misc Panel) 251 236 262 80-115 MG/DL Microbiology Microbiology 03/20/20 Urine Culture - Final, Complete Discharge Medications Scheduled Amoxicillin/Potassium Clav (Amox-Clav 875-125 mg Tablet) 1 Each Tablet, 875 MG PO BID Atorvastatin Calcium (Atorvastatin Calcium) 40 Mg Tab, 40 MG PO DAILY, (Reported) Bumetanide (Bumetanide) 2 Mg Tablet, 2 MG PO BID, (Reported) Carvedilol (Carvedilol) 6.25 Mg Tablet, 6.25 MG PO BID, (Reported) Colchicine (Colchicine) 0.6 Mg Tablet, 0.6 MG PO BID, (Reported) Febuxostat (Uloric) 40 Mg Tab, 40 MG PO DAILY, (Reported) Ferrous Sulfate (Ferrous Sulfate) 325 Mg Tablet.dr, 325 MG PO DAILY, (Reported) Fish Oil/Dha/Epa (Fish Oil 1,200 mg Fish Oil) 1 Each Capsule, 1 CAP PO DAILY, (Reported) Gabapentin (Neurontin) 300 Mg Cap, 300 MG PO BID, (Reported) Glipizide (Glipizide) 5 Mg Tab, 5 MG PO QPM, (Reported) WITH DINNER Insulin Aspart Prot/Insuln Asp (Novolog Mix 70-30 Flexpen Syrn) 100 Unit/1 Ml Insuln.pen, 1 DOSE SC QHS, (Reported) PER SLIDING SCALE Insulin Detemir (Levemir) 100 Unit/1 Ml Vial, 1 DOSE SC QHS, (Reported) PER SLIDING SCALE Metformin HCl (Metformin HCl ER) 500 Mg Tab.er.24h, 1,000 MG PO BID, (Reported) Potassium Chloride (Potassium Chloride) 10 Meq Tab.er.prt, 20 MEQ PO BID, (Reported) Prednisone (Prednisone) 5 Mg Tablet, 5 MG PO BID, (Reported) Sertraline Hcl (Sertraline HCl) 50 Mg Tab, 50 MG PO DAILY, (Reported) Tamsulosin Hcl (Tamsulosin HCl) 0.4 Mg Capsule, 0.4 MG PO DAILY, (Reported) Trazodone HCl (Trazodone HCl) 50 Mg Tablet, 50 MG PO QHS, (Reported) Warfarin Sodium (Warfarin Sodium) 3 Mg Tablet, 6 MG PO QPM, (Reported) @ 1800 Scheduled PRN Meclizine HCl (Meclizine HCl) 25 Mg Tablet, 25 MG PO BID PRN for DIZZINESS, (Reported) Allergies Coded Allergies: No Known Allergies (Unverified , 05/22/19) GME ATTESTATION GME ATTESTATION My faculty preceptor for this patient encounter was physically present during the encounter and was fully available. All aspects of the patient interview, examination, medical decision making process, and medical care plan development were reviewed and approved by the faculty preceptor. The faculty preceptor is aware and concurs with the plan as stated in the body of this note and will attest to such by his/her cosignature. ATTENDING NOTE I, Eula Tran, have independently examined this patient and performed my own physical exam, as well as reviewed the documentation and edited where necessary. I have discussed in detail with the resident / student the findings and plan of treatment as documented by the resident / student and edited their note. I agree with their findings and treatment plan and have edited their documentation. I will continue to follow the patient during this hospital stay. Time spent on discharge 35 minutes Rachel Ordonez MD Mar 23, 2020 10:42 EULA TRAN MD Mar 23, 2020 14:22
== END 2020-03-23 13:52 | disposition home or self-care (01) | DRG 291 ==
LOC: M PCU 08:10
PROVIDERS: ADMIT Internal Medicine; ATTEND Internal Medicine
DX: I13.0 Hypertensive heart and chronic kidney disease with heart failure and stage 1 through stage 4 chronic kidney disease, or unspecified chronic kidney disease (principal); I50.33 Acute on chronic diastolic (congestive) heart failure; I48.20 Chronic atrial fibrillation, unspecified; Z68.42 Body mass index [BMI] 45.0-49.9, adult; N39.0 Urinary tract infection, site not specified; E11.9 Type 2 diabetes mellitus without complications; E66.01 Morbid (severe) obesity due to excess calories; I25.10 Atherosclerotic heart disease of native coronary artery without angina pectoris; E78.5 Hyperlipidemia, unspecified; M10.9 Gout, unspecified; N18.30 Chronic kidney disease, stage 3 unspecified; Z79.4 Long term (current) use of insulin; Z79.01 Long term (current) use of anticoagulants; Z79.52 Long term (current) use of systemic steroids; Z79.899 Other long term (current) drug therapy

== ENCOUNTER → 2020-06-02 | Outpatient (REF) | payer MEDICARE, MEDICAID ==
[~2020-06-02] MED LIST changes: +COLC0.6T47 PO; -COLC1TAB13 PO; +MECL-86 PO; +NOVOINJ2 SC; +TAMS1CAP17 PO; +TRAZ-252 PO; +WARF-58 PO
== END ==
LOC: M SFHCPLAZ 08:43
PROVIDERS: ATTEND Family Medicine
DX: E78.5 Hyperlipidemia, unspecified (principal); E11.59 Type 2 diabetes mellitus with other circulatory complications; M10.09 Idiopathic gout, multiple sites; D50.9 Iron deficiency anemia, unspecified; I50.20 Unspecified systolic (congestive) heart failure

== ENCOUNTER 2020-08-10 17:18 | Inpatient (IN) | payer MEDICARE, MEDICAID ==
[~2020-08-10] VITALS: Ht 177.8 cm; Wt 135.7 kg
[~2020-08-10 17:18] MED LIST changes: +ISOS1TAB35 PO; -ISOS30TA4 PO
[2020-08-10 20:44] VITALS: BP 122/60
[2020-08-10] MEDS ORDERED: MAALOX 30 ML SUSP *UDC PO PRN (20:55)
[2020-08-10] MEDS ORDERED: MOM 30ML SUSPENSION UDC PO PRN (20:55)
[2020-08-10] MEDS: DOCUSATE SODIUM 100MG CAPSULE PO SCH (21:00)
[2020-08-10] MEDS ORDERED: LEVEMIR (INSULIN DETEMIR) 1 UNITS/0.01ML SC SCH (21:00)
[2020-08-10] MEDS: HumaLOG INSULIN (NovoLOG) PER UNIT SC SCH (21:00)
[2020-08-10] MEDS ORDERED: DEXTROSE 50% 50 ML SYRINGE IV PRN (21:25)
[2020-08-10] MEDS ORDERED: GLUCOSE 4GM CHEW TABLET PO PRN (21:25)
[2020-08-10] MEDS ORDERED: GLUCAGON INJ 1MG VIAL SC PRN (21:25)
[2020-08-10] MEDS ORDERED: TRUL0.5I SC (21:36)
--- NOTE | 2020-08-10 21:56 | HPEPDOC ---
[facility] Medical History & Physical Date of Admission Aug 10, 2020 Date of Service: Aug 10, 2020 History and Physical CHIEF COMPLAINT: Transfer from [facility] for SUMAN HISTORY OF PRESENT ILLNESS: 65-year-old male extensive past medical history including CAD/CABG, A. fib, aortic bioprosthetic valve, severe HFrEF with AICD, CKD3, who was transferred to [facility] from [facility] after being found to have SUMAN on CKD (Cr 3.1 there from baseline ~1.2-1.5). He was also found to have a supratherapeutic INR 7.1 there without obvious signs of bleeding. Originally at [facility] his chief complaint was progressive weakness over the past week and feels like his legs are giving out but he never had a fall. PAST MEDICAL/SURGICAL HISTORY: CAD/CABG 2X 2007 with revision in 2016 with AVR Bioprosthetic aortic valve replacement 2016 on Coumadin Atrial fibrillation Heart failure with reduced ejection fraction s/p Biventricular AICD Hypertension Diabetes Hyperlipidemia Gout Obstructive sleep apnea but doesnt tolerate CPAP uses 2.5 L O2 at night CKD stage III BPH SOCIAL HISTORY: Denies alcohol use Denies tobacco use Denies illicit drug use FAMILY HISTORY: Reviewed and none contributory to this admission ALLERGIES: Please see below. REVIEW OF SYSTEMS: 10 point review of systems complete all negative otherwise stated in HPI HOME MEDICATIONS: Please see below. PHYSICAL EXAMINATION: Constitutional: Awake and alert, in no apparent distress ENT: Sclera are clear. Respiratory: Lungs CTA bilaterally. No respiratory distress. No use of accessory muscles. Cardiovascular: irregular heart rate. No JVD. Gastrointestinal: Abdomen is soft, non distended, non tender, obese abdomen. Musculoskeletal: No lower extremity edema Neurologic: No focal neurological deficit. Mental Status: A&O x3, normal affect Skin: Warm, dry LABORATORY DATA: See below. IMAGING: See chart MICROBIOLOGY: Please see below. ASSESSMENT/PLAN 65-year-old male extensive past medical history including CAD/CABG, A. fib, aortic bioprosthetic valve, severe HFrEF with AICD, CKD3, who was transferred to [facility] from [facility] after being found to have SUMAN on CKD and supratheraputic INR. Admitted for medical management. # SUMAN on CKD stage III: Repeat BMP. Cr was elevated to ~3 at [facility] from baseline ~1.5. Apparently doesnt follow up with nephrology. Consult nephrology in the morning. Avoid nephrotoxins. Fu on Fe Urea. Fu urinalysis. Clinically dry, trial of IVFs just 1 L and recheck BMP in the am. Fu renal US. # Supratherapeutic INR: Has bioprostatic AVR on coumadin. Hold Coumadin, recheck INR 5.3. Doesnt need reversal right now no signs of bleeding. # Weakness: PT/OT. Trial of fluids. # CAD/CABG: ASA, statin. Follows with Dr Gómez. # HFrEF: s/p Biventricular AICD. Not in exacerbation, clinically dry. Continue home medications, hold off on bumex for 1-2 days clinically dry. Fu BNP # Atrial fibrillation: anticoagulated on coumadin, now superatherauptic. Continue rate control with carvedilol # Hypertension: Continue home meds. Monitor and titrate # DM: ISS. Frequent Accu-Cheks. Hypoglycemic precautions. Continue home dose levemir 30 qhs # DAVID: doesnt tolerate CPAP at home, uses 2.5L o2 at night which can be continue # Obesity: BMI >40 complicates care. # HLD: statin # DVT prophylaxis: Supertheraputic INR on coumadin, which can be resumed/adjusted once therapeutic A Yousef Hospitalist Vital Signs Vital Signs Date Time Temp Pulse Resp B/P (MAP) Pulse Ox O2 Delivery O2 Flow Rate FiO2 08/10/20 20:44 97.8 88 18 122/60 (80) 93 Room Air Home Medications Scheduled Atorvastatin Calcium (Atorvastatin Calcium) 40 Mg Tab, 40 MG PO QHS Bumetanide (Bumetanide) 2 Mg Tablet, 2 MG PO BID Carvedilol (Carvedilol) 6.25 Mg Tablet, 6.25 MG PO BID Colchicine (Colchicine) 0.6 Mg Tablet, 0.6 MG PO BID Dulaglutide (Trulicity) 1.5 Mg/0.5 Ml Pen.injctr, 1.5 MG SC QWEEK SUNDAYS Febuxostat (Uloric) 40 Mg Tab, 40 MG PO DAILY Ferrous Sulfate (Ferrous Sulfate) 325 Mg Tablet., 325 MG PO DAILY Fish Oil/Dha/Epa (Fish Oil 1,200 mg Fish Oil) 1 Each Capsule, 1 CAP PO DAILY Gabapentin (Neurontin) 300 Mg Cap, 300 MG PO BID Glipizide (Glipizide) 5 Mg Tab, 5 MG PO QPM WITH DINNER Insulin Aspart Prot/Insuln Asp (Novolog Mix 70-30 Flexpen Syrn) 100 Unit/1 Ml Insuln.pen, 15 UNIT SC DAILY Insulin Detemir (Levemir) 100 Unit/1 Ml Vial, 30 UNIT SC QHS Metformin HCl (Metformin HCl ER) 500 Mg Tab.er.24h, 1,000 MG PO BID Potassium Chloride (Potassium Chloride) 10 Meq Tab.er.prt, 20 MEQ PO BID Prednisone (Prednisone) 5 Mg Tablet, 5 MG PO BID Sertraline Hcl (Sertraline HCl) 50 Mg Tab, 50 MG PO DAILY Tamsulosin Hcl (Tamsulosin HCl) 0.4 Mg Capsule, 0.4 MG PO DAILY Trazodone HCl (Trazodone HCl) 50 Mg Tablet, 50 MG PO QHS Warfarin Sodium (Warfarin Sodium) 3 Mg Tablet, 6 MG PO QPM TAKES AT 1700 Allergies Coded Allergies: No Known Allergies (Unverified , 05/22/19) A-FIB/CHADSVASC A-FIB History Current/History of A-Fib/PAF?: Yes Current PO Anticoag Therapy: Yes ROEL MURRIETA MD Aug 10, 2020 21:56
[2020-08-10] MEDS ORDERED: NS 1,000 ML IV SCH (22:00)
[2020-08-10] MEDS: traZODone 50 MG TAB PO SCH (22:43)
[2020-08-10] MEDS: ATORVASTATIN 20 MG TAB PO SCH (22:43)
[2020-08-10 22:46] LABS: HEMATOCRIT 41.3 % (42.0-52.0); MEAN CORPUSCULAR HEMOGLOBIN 27.7 pg (27.0-33.0); MEAN CORPUSCULAR HGB CONC 31.5 g/dl (32.0-36.5); MEAN CORPUSCULAR VOLUME 87.9 fl (80.0-96.0); PLATELET COUNT, AUTOMATED 118 10^3/uL (150-450); WHITE BLOOD COUNT 7.9 10^3/uL (4.0-10.0)
[2020-08-10 22:57] LABS: INR 5.34; PROTHROMBIN TIME 50.1 SECONDS (12.5-14.3)
[2020-08-10 23:09] LABS: ALBUMIN 3.4 GM/DL (3.2-5.2); BILIRUBIN,TOTAL 0.4 MG/DL (0.2-1.0); CALCIUM LEVEL 9.5 MG/DL (8.8-10.2); CREATININE FOR GFR 3.34 MG/DL (0.70-1.30); GLOMERULAR FILTRATION RATE 19.7 (>49); POTASSIUM SERUM 5.1 MEQ/L (3.5-5.1); TOTAL PROTEIN 6.6 GM/DL (6.4-8.2)
--- NOTE | 2020-08-11 03:33 | REPVR ---
PROCEDURE INFORMATION: Exam: US Retroperitoneal Limited, Kidneys Exam date and time: 08/11/2020 2:26 AM Age: 65 years old Clinical indication: Abnormal findings; Abnormal lab test; Abnormal kidney function lab tests; Additional info: Worsening renal function TECHNIQUE: Imaging protocol: Real-time ultrasound of the retroperitoneum with image documentation. Examination was focused on the kidneys. COMPARISON: RENAL US 04/16/2019 6:11 PM FINDINGS: Right kidney: The right kidney measures 12.4 x 6.3 x 6.9 cm. No hydronephrosis of the right kidney. Mild increased echogenicity of the right renal cortex, suggestive of medical renal disease. Echogenic foci are identified within the right renal sinus, without definitive shadowing nephrolithiasis. Left kidney: The left kidney measures 13.2 x 6.7 x 6.1 cm. No hydronephrosis of the left kidney. At the lower pole of the left kidney, there is a 7 mm echogenic focus, consistent with the nonobstructing calculus or vascular calcification described on the previous ultrasound. The previously visualized left renal cyst is not appreciated on current ultrasound images. Bladder: Mild irregular contour of the bladder, without shadowing bladder calculi. IMPRESSION: 1. No hydronephrosis bilaterally. 2. Mild increased echogenicity of the right renal cortex, suggestive of medical renal disease. 3. At the lower pole of the left kidney, there is a 7 mm echogenic focus, consistent with the nonobstructing calculus or vascular calcification described on the previous ultrasound. 4. Additional findings described above. Electronically signed by: Sanjay Mendoza On 08/11/2020 03:33:40 AM
[2020-08-11 06:00] VITALS: BP 117/66
[2020-08-11 06:21] LABS: HEMATOCRIT 38.8 % (42.0-52.0); HEMOGLOBIN 12.2 g/dl (13.5-17.5); MEAN CORPUSCULAR HEMOGLOBIN 27.7 pg (27.0-33.0); MEAN CORPUSCULAR HGB CONC 31.4 g/dl (32.0-36.5); PLATELET COUNT, AUTOMATED 108 10^3/uL (150-450); RED BLOOD COUNT 4.41 10^6/uL (4.30-6.10); WHITE BLOOD COUNT 6.9 10^3/uL (4.0-10.0)
[2020-08-11 06:29] LABS: PROTHROMBIN TIME 54.9 SECONDS (12.5-14.3)
[2020-08-11 06:52] LABS: ALBUMIN 3.2 GM/DL (3.2-5.2); BILIRUBIN,TOTAL 0.3 MG/DL (0.2-1.0); CALCIUM LEVEL 9.1 MG/DL (8.8-10.2); CREATININE FOR GFR 3.02 MG/DL (0.70-1.30); GLOMERULAR FILTRATION RATE 22.2 (>49); POTASSIUM SERUM 4.3 MEQ/L (3.5-5.1); TOTAL PROTEIN 6.1 GM/DL (6.4-8.2)
[2020-08-11] MEDS: DOCUSATE SODIUM 100MG CAPSULE PO SCH (08:20)
[2020-08-11] MEDS: TAMSULOSIN 0.4 MG CAP PO SCH (08:20)
[2020-08-11] MEDS: CARVedilol 6.25 MG TAB PO SCH ×2 (08:20→20:34)
[2020-08-11] MEDS: GABAPENTIN 300 MG CAP PO SCH ×2 (08:20→20:32)
[2020-08-11] MEDS: HumaLOG INSULIN (NovoLOG) PER UNIT SC SCH ×4 (08:20→21:00)
[2020-08-11] MEDS: predniSONE 5 MG TAB PO SCH ×2 (08:20→20:32)
[2020-08-11] MEDS: SERTRALINE HCL 50 MG TAB PO SCH (08:20)
[2020-08-11] MEDS: FERROUS SULFATE 325MG TAB PO SCH (08:20)
[2020-08-11] MEDS: FEBUXOSTAT 40 MG TABLET (ULORIC) PO SCH (08:24)
[2020-08-11] MEDS ORDERED: COLCHICINE 0.6 MG TABLET PO SCH ×2 (09:00)
--- NOTE | 2020-08-11 12:15 | IPNPDOC ---
Subjective Date Seen The patient was seen on 08/11/20. Subjective Chief Complaint/HPI No complaints this morning. No more right leg cramps or pain. No bleeding from any where. No fever or chills, No diarrhea this morning. Objective Physical Examination General Exam: Positive: Alert, Cooperative, No Acute Distress Eye Exam: Positive: PERRLA, Conjunctiva & lids normal, EOMI; Negative: Sclera icteric ENT Exam: Positive: Atraumatic, Mucous membr. moist/pink, Pharynx Normal Neck Exam: Positive: Supple; Negative: JVD, thyromegaly Chest Exam: Positive: Clear to auscultation, Normal air movement Heart Exam: Positive: Rate Normal, Regular Rhythm, Normal S1, Normal S2; Negative: Rubs Abdomen Exam: Positive: Normal bowel sounds, Soft; Negative: Tenderness Extremity Exam: Negative: Clubbing, Cyanosis, Edema Skin Exam: Positive: Nl turgor and temperature; Negative: Rash, Breakdown Neuro Exam: Positive: Normal Speech, Strength at 5/5 X4 ext, Normal Tone Assessment /Plan Assessment 65-year-old male extensive past medical history including CAD/CABG x2 in 2006 with revision in 2016 along with aortic bioprosthetic valve replacement, Atrial fibrillation, Heart failure with reduced ejection fraction s/p Biventricular AICD , Hypertension, Diabetes, Hyperlipidemia, Gout, Obstructive sleep apnea but doesnt tolerate CPAP uses 2.5 L O2 at night, CKD stage III, BPH , Chronic diarreha, who was transferred to [facility] from [facility] after being found to have SUMAN on CKD and supratheraputic INR. Dottie presented to Outside hospital for right leg pain and cramps and pins and needle sensations. Admitted for medical management. SUMAN on CKD stage III: Cr was elevated to ~3 at [facility] from baseline ~1.5. Possibly due to coumadin related nephropathy Could be prerenal also as patient reports that he has chronic diarrhea often 5 to 6 times a day for a long time. this could be related to colchicine. will stop it. Supratherapeutic INR: Hold Coumadin, Doesnt need reversal right now no signs of bleeding. CAD/CABG: ASA, statin. Follows with Dr Gómez. Systolic CHF: s/p Biventricular AICD. Not in exacerbation, clinically dry. hold off on bumex for 1-2 days Atrial fibrillation: anticoagulated on coumadin, now supratherpeutic. Continue rate control with carvedilol Hypertension coreg DM with neuropathy: ISS. Frequent Accu-Cheks. Hypoglycemic precautions. Had hypoglycemia last night . will reduce levemir dosage. gabapentin DAVID: doesnt tolerate CPAP at home, uses 2.5L o2 at night which can be continue Morbid Obesity: BMI >40 complicates care. HLD: statin BPH flomax Gout on uloric, prednisone and colchicine patient has chronic diarrhea could be related to colchicine so colchicine stopped. Depression on sertraline and trazodone DVT prophylaxis: Supertheraputic INR on coumadin, which can be resumed/adjusted once therapeutic Plan/VTE VTE Prophylaxis Ordered?: Yes VS, I&O, 24H, Fishbone Vital Signs/I&O Vital Signs Date Time Temp Pulse Resp B/P (MAP) Pulse Ox O2 Delivery O2 Flow Rate FiO2 08/11/20 09:00 2.0 08/11/20 08:20 82 117/66 08/11/20 06:00 98.0 18 98 Room Air I&O- Last 24 Hours up to 6 AM 08/11/20 06:00 Intake Total 1200 ml Output Total 400 ml Balance 800 ml Laboratory Data 24H LABS Laboratory Tests 2 08/10/20 22:27: Nucleated Red Blood Cells % (auto) 0.0, Prothrombin Time 50.1H, Prothromb Time International Ratio 5.34*H, Anion Gap 11, Glomerular Filtration Rate 19.7L, Calcium Level 9.5, Total Bilirubin 0.4, Aspartate Amino Transf (AST/SGOT) 15, Alanine Aminotransferase (ALT/SGPT) 44, Alkaline Phosphatase 112, Total Protein 6.6, Albumin 3.4, Albumin/Globulin Ratio 1.1 08/10/20 23:34: Bedside Glucose (Misc Panel) 53L 08/11/20 01:08: Urine Color YELLOW, Urine Appearance CLEAR, Urine pH 5.0, Urine Specific [place] 1.011, Urine Protein NEGATIVE, Urine Glucose (UA) NEGATIVE, Urine Ketones NEGATIVE, Urine Blood NEGATIVE, Urine Nitrite NEGATIVE, Urine Bilirubin NEGATIVE, Urine Urobilinogen 0.2, Urine Leukocyte Esterase NEGATIVE, Urine WBC (Auto) 0, Urine RBC (Auto) 0, Urine Hyaline Casts (Auto) 0, Urine Bacteria (Auto) NEGATIVE, Urine Squamous Epithelial Cells 0, Urine Sperm (Auto) 08/11/20 01:42: Bedside Glucose (Misc Panel) 89 08/11/20 04:25: Bedside Glucose (Misc Panel) 145H 08/11/20 05:44: Nucleated Red Blood Cells % (auto) 0.0, Prothrombin Time 54.9H, Prothromb Time International Ratio 6.00*H, Anion Gap 12, Glomerular Filtration Rate 22.2L, Calcium Level 9.1, Total Bilirubin 0.3, Aspartate Amino Transf (AST/SGOT) 13, Alanine Aminotransferase (ALT/SGPT) 42, Alkaline Phosphatase 120H, YH-Aln-N-Type Natriuretic Peptide 3724H, Total Protein 6.1L, Albumin 3.2, Albumin/Globulin Ratio 1.1 CBC/BMP Laboratory Tests 08/10/20 22:27 08/11/20 05:44 ALCIDES RATLIFF MD Aug 11, 2020 12:15
[2020-08-11 14:00] VITALS: BP 149/90
[2020-08-11 19:48] LABS: SODIUM,RANDOM URINE 50 MEQ/L; UREA NITROGEN RANDOM URINE 769 MG/DL
[2020-08-11] MEDS: ATORVASTATIN 20 MG TAB PO SCH (20:32)
[2020-08-11] MEDS: traZODone 50 MG TAB PO SCH (20:32)
[2020-08-11] MEDS: LEVEMIR (INSULIN DETEMIR) 1 UNITS/0.01ML SC SCH (20:34)
[2020-08-12 06:00] VITALS: BP 131/73
[2020-08-12 06:41] LABS: BASO % 0.5 % (0.0-1.0); EOS # 0.1 10^3/uL (0.0-0.5); EOS % 2.5 % (0.0-3.0); HEMATOCRIT 38.8 % (42.0-52.0); HEMOGLOBIN 12.6 g/dl (13.5-17.5); LYMPH # 1.2 10^3/uL (1.5-5.0); LYMPH % 21.9 % (24.0-44.0); MEAN CORPUSCULAR HEMOGLOBIN 28.4 pg (27.0-33.0); MEAN CORPUSCULAR HGB CONC 32.5 g/dl (32.0-36.5); MEAN CORPUSCULAR VOLUME 87.4 fl (80.0-96.0); MONO # 0.6 10^3/uL (0.0-0.8); NEUTROPHILS # 3.6 10^3/uL (1.5-8.5); NEUTROPHILS % 64.7 % (36.0-66.0); PLATELET COUNT, AUTOMATED 100 10^3/uL (150-450); RED BLOOD COUNT 4.44 10^6/uL (4.30-6.10); WHITE BLOOD COUNT 5.6 10^3/uL (4.0-10.0)
[2020-08-12 06:50] LABS: PROTHROMBIN TIME 50.5 SECONDS (12.5-14.3)
[2020-08-12 06:57] LABS: INR 5.39
[2020-08-12 07:04] LABS: CREATININE FOR GFR 2.1 MG/DL (0.70-1.30); GLOMERULAR FILTRATION RATE 33.7 (>49); POTASSIUM SERUM 3.8 MEQ/L (3.5-5.1)
[2020-08-12] MEDS: HumaLOG INSULIN (NovoLOG) PER UNIT SC SCH ×4 (09:40→20:30)
[2020-08-12] MEDS: predniSONE 5 MG TAB PO SCH ×2 (09:40→20:38)
[2020-08-12] MEDS: FEBUXOSTAT 40 MG TABLET (ULORIC) PO SCH (09:40)
[2020-08-12] MEDS: SERTRALINE HCL 50 MG TAB PO SCH (09:40)
[2020-08-12] MEDS: GABAPENTIN 300 MG CAP PO SCH ×2 (09:40→20:38)
[2020-08-12] MEDS: FERROUS SULFATE 325MG TAB PO SCH (09:40)
[2020-08-12] MEDS: TAMSULOSIN 0.4 MG CAP PO SCH (09:40)
[2020-08-12] MEDS: CARVedilol 6.25 MG TAB PO SCH ×2 (09:41→20:38)
[2020-08-12 14:00] VITALS: BP 100/55
--- NOTE | 2020-08-12 16:23 | IPNPDOC ---
Subjective Date Seen The patient was seen on 08/12/20. Subjective Chief Complaint/HPI No complaints this morning except for back pain. No bleeding. Objective Physical Examination General Exam: Positive: Alert, Cooperative, No Acute Distress Eye Exam: Positive: PERRLA, Conjunctiva & lids normal, EOMI; Negative: Sclera icteric ENT Exam: Positive: Atraumatic, Mucous membr. moist/pink, Pharynx Normal Neck Exam: Positive: Supple; Negative: JVD, thyromegaly Chest Exam: Positive: Clear to auscultation, Normal air movement Heart Exam: Positive: Rate Normal, Regular Rhythm, Normal S1, Normal S2; Negative: Rubs Abdomen Exam: Positive: Normal bowel sounds, Soft; Negative: Tenderness Extremity Exam: Negative: Clubbing, Cyanosis, Edema Skin Exam: Positive: Nl turgor and temperature; Negative: Rash, Breakdown Neuro Exam: Positive: Normal Speech, Strength at 5/5 X4 ext, Normal Tone Assessment /Plan Assessment 65-year-old male extensive past medical history including CAD/CABG x2 in 2006 with revision in 2016 along with aortic bioprosthetic valve replacement, Atrial fibrillation, Heart failure with reduced ejection fraction s/p Biventricular AICD , Hypertension, Diabetes, Hyperlipidemia, Gout, Obstructive sleep apnea but doesnt tolerate CPAP uses 2.5 L O2 at night, CKD stage III, BPH , Chronic diarrhea, who was transferred to [facility] from [facility] after being found to have JAYCE on CKD and supratherapeutic INR. Patient presented to Outside hospital for right leg pain and cramps and pins and needle sensations. Admitted for medical management of Jayce on CKD. JAYCE on CKD stage III: Cr was elevated to ~[address] [facility] from baseline ~1.5. Possibly due to coumadin related nephropathy Could be prerenal also as patient reports that he has chronic diarrhea often 5 to 6 times a day for a long time. this could be related to colchicine. will stop it. creatinine improving. Consulted nephrology Supratherapeutic INR: Hold Coumadin, Doesnt need reversal right now no signs of bleeding. CAD/CABG: ASA, statin. Follows with Dr Gómez. Systolic CHF: s/p Biventricular AICD. Not in exacerbation, clinically dry. hold off on bumax for 1-2 days Atrial fibrillation: anticoagulated on coumadin, now supratherpeutic. Continue rate control with carvedilol Hypertension coreg DM with neuropathy: ISS. Frequent Accu-Cheks. Hypoglycemic precautions. Had hypoglycemia last night . will reduce levemir dosage. gabapentin DAVID: doesnt tolerate CPAP at home, uses 2.5L o2 at night which can be continued Morbid Obesity: BMI >40 complicates care. HLD: statin BPH flomax Gout on uloric, prednisone and colchicine patient has chronic diarrhea could be related to colchicine so colchicine stopped. Uric acid at 7.2 Depression on sertraline and trazodone DVT prophylaxis: Supertheraputic INR on coumadin, which can be resumed/adjusted once therapeutic Plan/VTE VTE Prophylaxis Ordered?: Yes VS, I&O, 24H, Fishbone Vital Signs/I&O Vital Signs Date Time Temp Pulse Resp B/P (MAP) Pulse Ox O2 Delivery O2 Flow Rate FiO2 08/12/20 14:00 98.0 80 17 100/55 (70) 93 Room Air 08/11/20 21:00 3.0 I&O- Last 24 Hours up to 6 AM 08/12/20 06:59 Intake Total 2980 ml Output Total 3250 ml Balance -270 ml Laboratory Data 24H LABS Laboratory Tests 2 08/11/20 18:43: Urine Random Sodium 50, Urine Random Urea Nitrogen 769 08/11/20 20:29: Bedside Glucose (Misc Panel) 186H 08/12/20 05:53: Immature Granulocyte % (Auto) 0.4, Neutrophils (%) (Auto) 64.7, Lymphocytes (%) (Auto) 21.9L, Monocytes (%) (Auto) 10.0H, Eosinophils (%) (Auto) 2.5, Basophils (%) (Auto) 0.5, Neutrophils # (Auto) 3.6, Lymphocytes # (Auto) 1.2L, Monocytes # (Auto) 0.6, Eosinophils # (Auto) 0.1, Basophils # (Auto) 0.0, Nucleated Red Blood Cells % (auto) 0.0, Prothrombin Time 50.5H, Prothromb Time International Ratio 5.39*H, Anion Gap 7L, Glomerular Filtration Rate 33.7L, Calcium Level 9.0 08/12/20 11:20: Bedside Glucose (Misc Panel) 258H CBC/BMP Laboratory Tests 08/12/20 05:53 ALCIDES RATLIFF MD Aug 12, 2020 16:23
[2020-08-12] MEDS: ACETAMINOPHEN TAB 650MG DOSE (2X325MG) PO PRN (16:29)
[2020-08-12] MEDS: ATORVASTATIN 20 MG TAB PO SCH (20:36)
[2020-08-12] MEDS: LEVEMIR (INSULIN DETEMIR) 1 UNITS/0.01ML SC SCH (20:38)
[2020-08-12 22:00] VITALS: BP 132/72
[2020-08-12] MEDS: traZODone 50 MG TAB PO SCH (22:02)
[2020-08-13] MEDS: ACETAMINOPHEN TAB 650MG DOSE (2X325MG) PO PRN (04:32)
[2020-08-13 06:00] VITALS: BP 119/58
[2020-08-13 06:29] LABS: BASO % 0.2 % (0.0-1.0); EOS # 0.2 10^3/uL (0.0-0.5); EOS % 3.2 % (0.0-3.0); HEMATOCRIT 37.5 % (42.0-52.0); HEMOGLOBIN 12.1 g/dl (13.5-17.5); LYMPH % 20.2 % (24.0-44.0); MEAN CORPUSCULAR HEMOGLOBIN 28.1 pg (27.0-33.0); MEAN CORPUSCULAR HGB CONC 32.3 g/dl (32.0-36.5); MONO # 0.5 10^3/uL (0.0-0.8); MONO % 9.8 % (2.0-8.0); NEUTROPHILS # 3.3 10^3/uL (1.5-8.5); RED BLOOD COUNT 4.31 10^6/uL (4.30-6.10)
[2020-08-13 06:38] LABS: PLATELET COUNT, AUTOMATED 94 10^3/uL (150-450)
[2020-08-13 06:45] LABS: INR 2.72; PROTHROMBIN TIME 29.5 SECONDS (12.5-14.3)
[2020-08-13 06:57] LABS: CREATININE FOR GFR 1.65 MG/DL (0.70-1.30); GLOMERULAR FILTRATION RATE 44.5 (>49); POTASSIUM SERUM 4.2 MEQ/L (3.5-5.1)
--- NOTE | 2020-08-13 08:11 | CR ---
CONSULTATION DATE: 08/12/2020 REASON FOR CONSULTATION: Acute kidney injury superimposed on chronic kidney disease in this gentleman with multiple chronic medical problems. HISTORY OF PRESENT ILLNESS: Mr. Buchanan is a 65-year-old gentleman with multiple chronic medical problems, including a history of systolic congestive heart failure, coronary artery disease, aortic valve disease, status post bioprosthetic aortic valve replacement, history of stage III chronic kidney disease with creatinine between 1.2-1.5 mg/dL at baseline. Patient reports that he had noticed progressive weakness in his lower extremities over the last couple of weeks to the point that his legs were buckling underneath him; however, he did not have any falls. He denies any recent change in medications. He also had an INR of 7.1 and creatinine up to 3.1 when he presented to emergency room at [facility]. He was transferred to [facility], and his diuretics have been held. He was also given intravenous (IV) normal saline with improvement in kidney function. Due to concerns about his systolic congestive heart failure and chronic kidney disease with superimposed acute kidney injury, a nephrology consultation was requested, and patient is seen this morning. MEDICAL HISTORY: Significant for: 1. Longstanding diabetes. 2. Hypertension. 3. Atrial fibrillation. 4. History of bioprosthetic aortic valve replacement, on chronic anticoagulation. 5. History of coronary artery disease, status post a coronary artery bypass graft (CABG). 6. History of hyperlipidemia. 7. Gout. 8. Obstructive sleep apnea, on continuous positive airway pressure (CPAP). 9. Chronic kidney disease. 10. History of BPH. SURGICAL HISTORY: Significant for: 1. Aortic valve replacement. 2. CABG. PERSONAL AND SOCIAL HISTORY: Patient denies any alcohol, tobacco, or drug use. FAMILY HISTORY: Negative for chronic kidney disease and unremarkable for this admission. HOME MEDICATIONS: - atorvastatin 40 mg daily - bumetanide 2 mg twice a day - carvedilol 6.25 mg twice a day - colchicine 0.6 mg twice a day - Trulicity 1.5 mg once a week - Uloric 40 mg daily - ferrous sulfate 325 mg daily - gabapentin 300 mg twice a day - glipizide 5 mg daily - NovoLog insulin 70/30, 15 units daily - Levemir insulin 30 units daily - metformin 1000 mg twice a day - potassium chloride 20 mEq twice a day - sertraline 50 mg daily - tamsulosin 0.4 mg at bedtime - trazodone 50 mg at bedtime - Coumadin 6 mg daily ALLERGIES: He has no known drug allergies. REVIEW OF SYSTEMS: Patient denies any fever or chills. Ears, nose, and throat are unremarkable. Cardiovascular system is negative for dyspnea or chest pain at present. He denies any leg edema. Respiratory system is negative for cough or hemoptysis. Gastrointestinal (GI) system negative for vomiting or diarrhea. Genitourinary () system negative for dysuria or hematuria. Musculoskeletal system is significant for bilateral lower extremity weakness over the last couple of weeks. Skin is negative for rash or ulcers. Neurological system is negative for seizures or stroke. Musculoskeletal system is significant for history of gout but denies any acute flares. He was taking colchicine 0.6 mg twice a day for unknown reason. PHYSICAL EXAMINATION: Temperature 98 degrees Fahrenheit, heart rate 80 per minute, respiratory rate 20 per minute, blood pressure 129/77 mmHg, and oxygen saturation 100%. His head is atraumatic. Pupils equal and reactive to light. Sclerae are anicteric. Ears, nose, and throat are unremarkable. Heart sounds are irregular in rhythm, and lungs sound clear to auscultation. Abdomen obese, soft, and nontender, and bowel sounds are normal. Extremities without any cyanosis or clubbing. Neurologically, he is awake, alert, and oriented times three. LABORATORY DATA: On admission here, his BUN was 134 and creatinine 3.34. Sodium 138 and potassium 5.1. His BNP level yesterday was 3724. Today his sodium is 141, potassium 3.8, chloride 112, BUN 104, and creatinine 2.10. His INR was 7 in the other hospital and has been between 5-6 here since admission. Hemoglobin is 12.6 and hematocrit 38.8. Urinalysis unremarkable. PROBLEMS: 1. Acute kidney injury superimposed on chronic kidney disease. Seems to be multifactorial. Patient was taking colchicine twice a day, and he has also been on diuretics. Currently, his diuretic is on hold, and he has been treated with IV normal saline. Kidney function has improved since admission. He does not have any uremic symptoms. I will definitely keep him off colchicine. We will check his uric acid level. 2. Systolic congestive heart failure. He clinically seems well compensated at present and lying down in the bed without any acute distress. Diuretic is currently on hold. 3. Elevated INR. Patient reports no change in his Coumadin. Most likely this is result of some drug interaction. Supratherapeutic INR can also affect the kidney function. His kidney function seems to be improving now, and Coumadin is currently on hold. 4. Gout. Patient is currently asymptomatic and should continue with Uloric. His uric acid level will be checked again tomorrow. Thank you for involving me in the care of Mr. Buchanan. I will follow him along with you.
[2020-08-13] MEDS: SERTRALINE HCL 50 MG TAB PO SCH (08:33)
[2020-08-13] MEDS: HumaLOG INSULIN (NovoLOG) PER UNIT SC SCH ×2 (08:33→12:45)
[2020-08-13] MEDS: predniSONE 5 MG TAB PO SCH (08:34)
[2020-08-13] MEDS: FEBUXOSTAT 40 MG TABLET (ULORIC) PO SCH (08:34)
[2020-08-13] MEDS: FERROUS SULFATE 325MG TAB PO SCH (08:34)
[2020-08-13] MEDS: TAMSULOSIN 0.4 MG CAP PO SCH (08:34)
[2020-08-13] MEDS: GABAPENTIN 300 MG CAP PO SCH (08:34)
[2020-08-13 08:36] VITALS: BP 132/79
[2020-08-13] MEDS: CARVedilol 6.25 MG TAB PO SCH (08:36)
[2020-08-13] MEDS ORDERED: WARF-58 PO (11:12)
[2020-08-13] MEDS ORDERED: BUMETANIDE 1 MG TAB PO ONE (12:00)
--- NOTE | 2020-08-13 13:55 | IPN ---
PROGRESS NOTE DATE: 08/13/2020 SUBJECTIVE: Mr. Buchanan is seen this morning on his bedside. He is feeling well and denies any new complaints. His diuretic has been on hold due to acute kidney injury. He has mild leg edema now, but denies any dyspnea or chest pain. He denies any acute gout. PHYSICAL EXAMINATION: VITALS: Temperature 96.9 degrees Fahrenheit, heart rate 82 per minute, respiratory rate 20 per minute, blood pressure 132/79 mmHg and oxygen saturation 98% on room air. HEENT: Head atraumatic. Neck supple and JVD is about 9 to 10 cm above sternal angle. LUNGS: Slightly diminished breath sounds at bases. HEART: Sounds are irregular in rhythm. Systolic murmur is grade 2/6. ABDOMEN: Obese, soft and nontender. Bowel sounds are normal. EXTREMITIES: Without any cyanosis or clubbing. Lower extremity edema is now 1+. NEUROLOGIC: He is awake, alert and oriented x3. LABORATORY DATA: Today's labs show WBC 5.0, hemoglobin 12.1, hematocrit 37.5, platelets 94,000. Sodium 143, potassium 4.2, CO2 22, BUN 77, creatinine 1.65, glucose 271 and calcium 8.0. His BNP level was 3,724 on the 10th and went up to 6,306 today. PROBLEMS: 1. Acute kidney injury superimposed on chronic kidney disease: Most likely acute kidney injury is multifactorial related to diuretic use, twice a day Colchicine use and very high INR. His INR is now coming down as his Coumadin has been on hold. Today's INR is 2.72. Kidney function is improving while he has been off diuretic, however, he has now developed some hypervolemia. My assessment is that his baseline creatinine will probably be around 2.0. At this point, his diuretic should be resumed and follow-up as an outpatient. 2. Congestive heart failure: Somewhat decompensated now due to diuretics being on hold for the last couple of days. I have discussed with Dr. Mar and recommended to resume his diuretic. He should continue with other medications, but avoid all nonsteroidals. He should also not take any Colchicine. His uric acid level is 8.0 and he will need to be on Allopurinol or Uloric. He is on Uloric 40 mg daily already and I am going to increase it to 80 mg daily. 3. Coagulopathy: Patient had very elevated INR, which has now improved. He will need to follow-up with his primary physician for his Coumadin adjustment. DISPOSITION: From a renal standpoint, patient can be discharged to home and follow-up as an outpatient in my clinic in 1-2 weeks.
[2020-08-14] MEDS ORDERED: FEBUXOSTAT 40 MG TABLET (ULORIC) PO SCH (09:00)
== END 2020-08-13 14:15 | disposition home or self-care (01) | DRG 682 ==
LOC: M MSPAV 20:44
PROVIDERS: ADMIT Internal Medicine; ATTEND Internal Medicine Nephrology
DX: N17.9 Acute kidney failure, unspecified (principal); I50.23 Acute on chronic systolic (congestive) heart failure; I13.0 Hypertensive heart and chronic kidney disease with heart failure and stage 1 through stage 4 chronic kidney disease, or unspecified chronic kidney disease; Z68.41 Body mass index [BMI] 40.0-44.9, adult; R79.1 Abnormal coagulation profile; N18.30 Chronic kidney disease, stage 3 unspecified; I48.91 Unspecified atrial fibrillation; E11.22 Type 2 diabetes mellitus with diabetic chronic kidney disease; E66.01 Morbid (severe) obesity due to excess calories; I25.10 Atherosclerotic heart disease of native coronary artery without angina pectoris; E11.649 Type 2 diabetes mellitus with hypoglycemia without coma; E78.5 Hyperlipidemia, unspecified; M10.9 Gout, unspecified; G47.33 Obstructive sleep apnea (adult) (pediatric); Z79.899 Other long term (current) drug therapy; Z79.4 Long term (current) use of insulin; E11.40 Type 2 diabetes mellitus with diabetic neuropathy, unspecified; Z79.52 Long term (current) use of systemic steroids

== ENCOUNTER → 2020-08-31 | Outpatient (REF) | payer MEDICARE, MEDICAID ==
[~2020-08-31] MED LIST changes: +TRUL0.5I SC
== END ==
LOC: M SFHCPLAZ 10:28
PROVIDERS: ATTEND Family Medicine
DX: M70.22 Olecranon bursitis, left elbow (principal)

== ENCOUNTER → 2020-09-14 | Outpatient (REF) | payer MEDICARE, MEDICAID ==
[~2020-09-14] MED LIST changes: +ACYC1TAB4 PO; -ACYC800T PO
== END ==
LOC: M SFHCPLAZ 11:52
PROVIDERS: ATTEND Family Medicine
DX: M70.22 Olecranon bursitis, left elbow (principal)

== ENCOUNTER → 2020-11-30 | Outpatient (CLI) | payer MEDICARE, MEDICAID ==
[~2020-11-30] MED LIST changes: +BACTDSTA PO; -SULF1TAB93 PO
[2020-11-30 17:15] LABS: BASO % 0.4 % (0.0-1.0); EOS # 0.1 10^3/uL (0.0-0.5); EOS % 1.1 % (0.0-3.0); HEMATOCRIT 39.6 % (42.0-52.0); HEMOGLOBIN 12.1 g/dl (13.5-17.5); LYMPH # 1.4 10^3/uL (1.5-5.0); LYMPH % 20.3 % (24.0-44.0); MEAN CORPUSCULAR HEMOGLOBIN 28.6 pg (27.0-33.0); MEAN CORPUSCULAR HGB CONC 30.6 g/dl (32.0-36.5); MEAN CORPUSCULAR VOLUME 93.6 fl (80.0-96.0); MONO # 0.5 10^3/uL (0.0-0.8); MONO % 7.2 % (2.0-8.0); NEUTROPHILS % 70.7 % (36.0-66.0); PLATELET COUNT, AUTOMATED 130 10^3/uL (150-450); RED BLOOD COUNT 4.23 10^6/uL (4.30-6.10); WHITE BLOOD COUNT 7.1 10^3/uL (4.0-10.0)
[2020-11-30 17:38] LABS: HEMOGLOBIN A1c 6.1 %
[2020-11-30 17:42] LABS: ALBUMIN 3.5 GM/DL (3.2-5.2); BILIRUBIN,TOTAL 0.6 MG/DL (0.2-1.0); CALCIUM LEVEL 8.8 MG/DL (8.8-10.2); CREATININE FOR GFR 1.84 MG/DL (0.70-1.30); GLOMERULAR FILTRATION RATE 39.3 (>49); POTASSIUM SERUM 4.2 MEQ/L (3.5-5.1); TOTAL PROTEIN 6.5 GM/DL (6.4-8.2)
[2020-11-30 18:04] LABS: INR 1.93; PROTHROMBIN TIME 22.5 SECONDS (12.5-14.3)
== END ==
LOC: M PLALAB 14:47
PROVIDERS: ATTEND Physician Assistant
DX: E11.59 Type 2 diabetes mellitus with other circulatory complications (principal); R60.0 Localized edema; Z79.01 Long term (current) use of anticoagulants
CPT/HCPCS: 36415; 80053; 83036; 83735; 83880; 85025; 85610; G0463

== ENCOUNTER → 2020-12-07 | Outpatient (REF) | payer MEDICARE, MEDICAID | LOC: M SFHCPLAZ 15:21 | PROVIDERS: ATTEND Family Medicine | DX: I50.20 Unspecified systolic (congestive) heart failure (principal) ==

== ENCOUNTER → 2020-12-07 | Outpatient (CLI) | payer MEDICARE, MEDICAID ==
[2020-12-07 18:34] LABS: CALCIUM LEVEL 8.7 MG/DL (8.8-10.2); CREATININE FOR GFR 1.71 MG/DL (0.70-1.30); GLOMERULAR FILTRATION RATE 42.7 (>49); POTASSIUM SERUM 3.7 MEQ/L (3.5-5.1)
== END ==
LOC: M PLALAB 15:29
PROVIDERS: ATTEND Student in an Organized Health Care Education/Training Program
DX: I50.20 Unspecified systolic (congestive) heart failure (principal)
CPT/HCPCS: 36415; 80048; 83735; 83880; G0463

== ENCOUNTER → 2020-12-21 | Outpatient (REF) | payer MEDICARE, MEDICAID | LOC: M SFHCPLAZ 13:40 | PROVIDERS: ATTEND Family Medicine | DX: R60.0 Localized edema (principal); M79.10 Myalgia, unspecified site ==

== ENCOUNTER → 2021-04-05 | Outpatient (REF) | payer MEDICARE, MEDICAID ==
[~2021-04-05] MED LIST changes: -DOXY1CAP60 PO; +DOXY50CA51 PO; -KLOR10TA76 PO; +POTA-136 PO
[2021-04-05 18:48] LABS: CREATININE, URINE 54.6 MG/DL; MALB URINE SIEMENS 43.4 MG/L; MAU/CREAT RATIO 79.4 MCG/MG (0.0-30.0)
== END ==
LOC: M LAB REF 17:50
PROVIDERS: ATTEND Nurse Practitioner Family
DX: E11.65 Type 2 diabetes mellitus with hyperglycemia (principal)